=== PATIENT | male | born 1955 | race Caucasian/White ===

== ENCOUNTER → 2018-11-15 12:25 | Outpatient (CLI) | payer MEDICARE, OTHER, SELFPAY ==
[2017-06-20 14:05] VITALS: BMI 42.5
--- NOTE | 2018-11-15 12:35 | RAD_ITS ---
STUDY: X-RAY CHEST REASON FOR EXAM: Male, 63 years old. Acute bronchitis TECHNIQUE: PA and lateral views of the chest. COMPARISON: Previous study of 06/20/2017 FINDINGS: There is a right-sided Mediport with catheter tip superimposed on the distal SVC. The lungs are clear and expanded. There is no demonstrated pleural abnormality. Normal size heart. Normal mediastinum and shira. Normal visualized pulmonary arteries. Normal visualized aortic arch and descending thoracic aorta. There are diffuse degenerative changes of the visualized thoracic spine. Normal visualized ribs, clavicles, and shoulders. There is no demonstrated abnormality of the visualized soft tissue structures of the upper abdomen. RAD/Chest PA and Lateral IMPRESSION: Right-sided MediPort with catheter tip appearing in adequate position. Degenerative changes of the thoracic spine. No acute cardiopulmonary disease process is seen. Electronically Signed: Aakash Arrieta MD at 23:54 EST , Service support ,
== END ==
PROVIDERS: Family Provider Family Medicine; PCP Family Medicine; Referring Provider Family Medicine; Visit Provider Family Medicine
DX: J20.9 Acute bronchitis, unspecified (principal)
CPT/HCPCS: 71046

== ENCOUNTER → 2019-01-01 09:59 | Outpatient (CLI) | payer OTHER, SELFPAY ==
[2017-06-20 14:05] VITALS: BMI 42.5
[2019-01-01 13:13] LABS: ALB/GLOB Ratio 1.3 RATIO (0.9-2.4); AST(SGOT) 11 U/L (15-37); Alanine Aminotransfer ALT/SGPT 18 U/L (16-61); Albumin, Serum 3.5 g/dL (3.2-5.0); Alkaline Phosphatase 86 U/L (45-117); Anion Gap 4 (5-15); BUN 16 mg/dL (7-18); BUN/Creat Ratio 18.4 RATIO (10-20); Calcium,Total 8.6 mg/dL (8.5-10.1); Chloride 110 mmol/L (98-107); Cholesterol 175 mg/dL (200); Creatinine, Serum 0.87 mg/dL (0.70-1.30); EST Glomerular Filtration Rate 93 mL/min (>60); Est Glom Filt Rate - Afr Amer 113 mL/min (>60); Globulin 2.6 g/dL (2.2-4.2); Glucose 68 mg/dL (74-106); High Density Lipoprotein 63 mg/dL; Magnesium 2.2 mg/dL (1.6-2.6); Potassium 4.4 mmol/L (3.5-5.1); Protein, Total 6.1 g/dL (6.4-8.2); Sodium Level 142 mmol/L (136-145); Thyroid Stim Hormone (TSH) 1.89 uIU/mL (0.358-3.74); Triglycerides 72 mg/dL; Very Low Density Lipoprotein 14 mg/dL (5-40)
[2019-01-03 12:20] LABS: Arsenic 7245 8 ug/L (2-23); Lead, Blood 2 ug/dL (0-4); Mercury, Blood 85324 1.2 ug/L (0.0-14.9)
== END ==
PROVIDERS: Family Provider Family Medicine; PCP Family Medicine; Referring Provider Family Medicine; Visit Provider Family Medicine
DX: I10 Essential (primary) hypertension (principal); I49.9 Cardiac arrhythmia, unspecified; Z72.0 Tobacco use
CPT/HCPCS: 36415; 80053; 80061; 82175; 83655; 83735; 83825; 84443

== ENCOUNTER → 2019-01-20 13:58 | Outpatient (CLI) | payer MEDICARE, OTHER, SELFPAY ==
[2019-01-20 09:36] VITALS: BMI 31.1
--- NOTE | 2019-01-20 14:04 | ECHOD_ITS ---
Reason For Study: MURMUR Procedure This was a 2D Doppler, Color Flow transthoracic echocardiogram. The study was technically difficult. Exam performed in department. Left Ventricle Mildly dilated left ventricle. Apical false tendon noted. Left ventricular systolic function is normal. The estimated ejection fraction is 55 %. There is evidence of diastolic dysfunction. No regional wall motion abnormalities noted. Right Ventricle Normal RV size. Normal systolic function. Atria The left atrium is moderately enlarged. Normal right atrium. No doppler evidence for ASD. Mitral Valve There is no mitral annular calcification. Normal mitral valve. Mild (1+) mitral valve insufficiency. Tricuspid Valve Normal tricuspid valve. Trivial tricuspid valve insufficiency. Right ventricular systolic pressure estimated to be 33 mmHg. Aortic Valve Trisinus/trileaflet aortic valve. Normal aortic valve. Trivial aortic valve insufficiency. Pulmonic Valve The pulmonic valve is not well visualized. Great Vessels Normal sized aortic root. Pericardium/Pleural No pericardial effusion. MMode/2D Measurements & Calculations LVIDd: 6.4 cm IVSd: 1.0 cm LVOT diam: 2.2 cm LVIDs: 5.1 cm LVPWd: 1.1 cm LVOT area: 3.8 cm2 RVDd: 3.7 cm FS: 20.8 % Ao root diam: 3.7 cm LAV(MOD-bp): 113.2 ml LA A4 area: 28.6 cm2 LAV(MOD-bp) Indexed: 56.1 ml/m2 LAV(MOD-sp2): 108.4 ml LAV(MOD-sp4): 111.5 ml LA dimension(2D): 4.4 cm RA A4 area: 24.7 cm2 Time Measurements MV dec time: 0.28 sec Doppler Measurements & Calculations MV E max dank: 62.6 cm/sec Lat Peak E' Dank: 5.7 cm/sec Med Peak E' Dank: 5.0 cm/sec MV A max dank: 75.6 cm/sec E/E' lat: 11.0 E/E' med: 12.5 MV E/A: 0.83 Ao V2 max: 197.8 cm/sec AI max dank: 362.4 cm/sec LV V1 max: 142.6 cm/sec Ao max P.7 mmHg AI max P.6 mmHg LV V1 max P.1 mmHg Ao V2 mean: 141.2 cm/sec AI dec slope: 164.1 cm/sec2 LV V1 mean P.7 mmHg Ao mean P.7 mmHg AI P1/2t: 646.6 msec LV V1 mean: 103.7 cm/sec Ao V2 VTI: 41.1 cm LV V1 VTI: 30.0 cm SANJAY(I,D): 2.7 cm2 SANJAY(V,D): 2.7 cm2 SV(LVOT): 112.9 ml PA V2 max: 133.8 cm/sec TR max dank: 272.8 cm/sec TR max P.8 mmHg Interpretation Summary The study was technically difficult. Mildly dilated left ventricle. Left ventricular systolic function is normal. The estimated ejection fraction is 55 %. Apical false tendon noted. The left atrium is moderately enlarged. Mild (1+) mitral valve insufficiency. Trivial tricuspid valve insufficiency. Trivial aortic valve insufficiency. Right ventricular systolic pressure estimated to be 33 mmHg. There is evidence of diastolic dysfunction. Ordering Physician: Ivan Kamara Referring Physician: Kai Hackett Performed By: Denisse Mast, GIGI, RVT
== END ==
PROVIDERS: Family Provider Family Medicine; PCP Family Medicine; Referring Provider Family Medicine; Visit Provider Family Medicine
DX: R01.1 Cardiac murmur, unspecified (principal)
CPT/HCPCS: 93306

== ENCOUNTER → 2019-02-04 06:42 | Outpatient (CLI) | payer MEDICARE, OTHER, SELFPAY ==
[2019-01-20 09:36] VITALS: BMI 31.1
--- NOTE | 2019-02-04 11:55 | STRESSREP ---
Stress Test Report Date: 02-04-19 Procedure: Exercise tolerance test/imaging study Indications: Sinus bradycardia; PACs; hypertension Consent: Per the patient Procedure: The patient exercised on a Kevon protocol for 9 minutes and 30 seconds completing Stage III and 30 seconds of Stage IV achieving a peak heart rate of 146 bpm (94 % predicted maximal heart rate) with a peak blood pressure 190/102 mmHg and a peak MET capacity of 10 METs. The baseline ECG demonstrated sinus bradycardia; nonspecific T wave abnormality. The peak exercise ECG demonstrated pseudonormalization of baseline T wave abnormality. There was an occasional PVC pretest, during exercise, and recovery. The functional capacity was considered good. There was no complaint of chest discomfort during exercise or recovery. The examination was discontinued secondary to dyspnea and leg discomfort. Impression: 1. Technically adequate (percent predicted maximal heart rate greater than 85%) exercise tolerance test 2. Peak exercise ECG demonstrated pseudonormalization of baseline T wave abnormality 3. There was an occasional PVC pretest, during exercise, and recovery 4. Nuclear images pending Myocardial perfusion imaging study: Technique: The patient was injected with 11.1 mCi of technetium 99m Cardiolite and subsequently rest SPECT Cardiolite nuclear imaging was obtained in the horizontal long, vertical long, and short axis views. The patient exercised on a Kevon protocol for 9 minutes and 30 seconds completing Stage III and 30 seconds of Stage IV achieving a peak heart rate of 146 bpm (94 % predicted maximal heart rate) with a peak blood pressure 190/102 mmHg and a peak MET capacity of 10 METs. The patient was injected with 32.8 mCi of technetium 99m Cardiolite and subsequently stress SPECT Cardiolite nuclear imaging was obtained in the horizontal long, vertical long, and short axis views. A gated Cardiolite study at peak stress was obtained. Interpretation: Rest and stress SPECT Cardiolite nuclear imaging status post realignment, normalization, and attenuation correction, demonstrates the appearance of a small area of subtle diminished tracer uptake near the apical segments without significant change between rest and stress. There are similar type findings on the resting and stress polar map images. There is end systolic thickening and brightening. The gated Cardiolite study demonstrates myocardial thickening and inward wall motion. The reported LVEF is 42 %. Impression: 1. Rest and stress SPECT Cardiolite nuclear imaging demonstrate myocardial perfusion changes appearing compatible defects of physiologic apical thinning with no myocardial perfusion changes considered diagnostic for associated stress-induced myocardial ischemia. 2. The gated Cardiolite study reports an LVEF of 42 %. This note was generated with [employer] software. It may contain incorrect words, spelling, and punctuation that were not noted in checking the note before signing.
== END ==
PROVIDERS: Family Provider Family Medicine; PCP Family Medicine; Referring Provider Internal Medicine Cardiovascular Disease; Visit Provider Internal Medicine Cardiovascular Disease
DX: I49.1 Atrial premature depolarization (principal); I49.3 Ventricular premature depolarization; R00.1 Bradycardia, unspecified; R01.1 Cardiac murmur, unspecified; I10 Essential (primary) hypertension; R06.00 Dyspnea, unspecified
CPT/HCPCS: 78452; 93017; A9500; A4216

== ENCOUNTER → 2020-02-13 11:03 | Outpatient (CLI) | payer MEDICARE, OTHER, SELFPAY ==
[2020-02-13 10:06] VITALS: BMI 35.9
[2020-02-13 12:05] LABS: Anion Gap 4 (5-15); BUN 16 mg/dL (7-18); BUN/Creat Ratio 16.1 RATIO (10-20); Calcium,Total 9.1 mg/dL (8.5-10.1); Chloride 111 mmol/L (98-107); Creatinine, Serum 0.99 mg/dL (0.70-1.30); EST Glomerular Filtration Rate 80 mL/min (>60); Est Glom Filt Rate - Afr Amer 97 mL/min (>60); Glucose 123 mg/dL (74-106); Magnesium 2.1 mg/dL (1.6-2.6); Sodium Level 140 mmol/L (136-145); Thyroid Stim Hormone (TSH) 1.84 uIU/mL (0.358-3.74)
--- OUTSIDE RECORDS SUMMARY | 2020-07-13 11:14 | XMS RPT_ITS | CCD ---
:1955 External Reference #:[id number] Author Organization [facility] Care Team Providers Name Role Phone Prieto Kamara Primary Care Provider Deacon CH, D Unavailable Deacon CH, D Unavailable Allergies Reported Allergen Reaction(s) Severity Date of Onset Location penicillin v Critical, Critical 12-08-2015 - [facility] ([id number]) Medications Medication Name Sig Date Prescriber Location acetaminophen TYLENOL CAPS as needed 06-13-2017 [facility] (78323) CAPS [id number] Mane Worthy MD TYLENOL CAPS as needed 06-13-2017 [facility] ACETAMINOPHEN CAPS (4 4691) [id number] Mane Worthy MD TYLENOL CAPS as needed 06-13-2017 [facility] ACETAMINOPHEN CAPS (4 4691) [id number] Mane Worthy MD TYLENOL CAPS as needed 06-13-2017 [facility] ACETAMINOPHEN CAPS (4 4691) [id number] Mane Worthy MD acetaminophen (TYLENOL EXTRA [facility]cf Provider [facility] STRENGTH) 500 mg tablet Take (44 691) 1,000 mg by mouth every 6 hours as needed. 0 Active Comment: Take 1,000 mg by mouth every 6 hours as needed. aspirin ASPIR-LOW 81 MG TBE 12-08-2015 - 06-13-2017 [facility] ASPIRIN (01718) [id number] Ollie Coates ASPIR-LOW 81 MG TBE 12-08-2015 - 06-13-2017 [facility] ASPIRIN [id number] ( 46247) Ollie S Jaxon B [id number] B COMPLETE TABS B 12-08-2015 [facility] Surgical [phone] Associates (86598) Ollie Mayes COMPLETE TABS B 12-08-2015 [facility] (14717) [id number] Ollie Mayes [id number]-[id number] B COMPLETE TABS B 12-08-2015 [facility] Surgical [id number] Associates (65387) Ollie Mayes COMPLETE TABS B 12-08-2015 [facility] (47883) [id number] Ollie Coates cholecalciferol VITAMIN D (CHOLECALCIFEROL) 1000 06-13-2017 [facility] UNIT TABS One tablet by mouth (37969) daily CHOLECALCIFEROL [id number] Mane Worthy MD VITAMIN D-400 TABS 12-08-2015 - 06-13-2017 [facility] CHOLECALCIFEROL TABS (30684) [id number] Mane Worthy MD VITAMIN D-400 TABS 12-08-2015 [facility] CHOLECALCIFEROL TABS [id number] (66690) Ollei Coates VITAMIN D-400 TABS 12-08-2015 - 06-13-2017 [facility] CHOLECALCIFEROL TABS (46103) [id number] Mane Worthy MD VITAMIN D-400 TABS 12-08-2015 [facility] CHOLECALCIFEROL TABS [id number] (08711) Ollie Coates VITAMIN D-400 TABS 12-08-2015 - 06-13-2017 [facility] CHOLECALCIFEROL TABS (92032) [id number] Mane Worthy MD VITAMIN D-400 TABS 12-08-2015 [facility] CHOLECALCIFEROL TABS [id number] (69553) Ollie Coates VITAMIN D-400 TABS 2015 - 06-13-2017 [facility] CHOLECALCIFEROL TABS (13511) [id number] Mane Worthy MD VITAMIN D-400 TABS 12-08-2015 [facility] CHOLECALCIFEROL TABS [id number] (71240) Ollie Coates Famotidine famotidine (PEPCID AC) 10 mg [facility] Provider [facility] (53799) tablet Take 10 mg by mouth as needed. 0 Active Comment: Take 10 mg by mouth as neede d. furosemide furosemide (LASIX) 20 mg 04-11-2017 [facility] Provider [facility] tablet 1 tablet once (07497) daily. 0 04/11/2017 Active Comment: 1 tablet once daily. heparin heparin 100 unit/mL 01-22-2018 Kai Hackett [facility] (44242) injection Access implanted vascular access device (IVAD) as needed for flush, blood draw or treatment. Before de-accessing port, flush with 10-20ml normal saline and follow with 5 mL heparin (100 units/mL) (if no heparin allergy). De-access port on treatment completion. 20 mL 11 02/25/2019 Active Comment: Access implanted vascular ac cess device (IVAD) as needed for flush, blood draw or treatment. Before de -accessing port, flush with 10-20ml normal saline and follow with 5 mL heparin (100 units/mL) (if no heparin allergy). De-access port on treatment completion. Ibuprofen ibuprofen (ADVIL) 200 mg tablet Ccf Provi ellen [facility] (29362) Take 200 mg by mouth every 6 hours as needed. 0 Active Comment: Take 200 mg by mouth every 6 hours as needed. lisinopril LISINOPRIL 10 MG TABS 12-08-2015 - 06-13-2017 [facility] (74631 ) LISINOPRIL [id number] Mane Worthy MD Comment: Take 10 mg by mouth once soha ly. melatonin GNP MELATONIN TABS One tablet by 06-13-2017 [facility] Surgical [facility] mouth daily MELATONIN (06689) TABS [id number] Mane Worthy MD GNP MELATONIN TABS One tablet 06-13-2017 [facility] by mouth daily (28194 ) MELATONIN TABS [id number] Mane Worthy MD GNP MELATONIN TABS One tablet 06-13-2017 [facility] by mouth daily (47783 ) MELATONIN TABS [id number] Mane Worthy MD Melatonin 5 mg tab Take 5 mg by [facility] Provider [facility] mouth at bedtime as needed. 0 (4 7310) Active Comment: Take 5 mg by mouth at bedtim e as needed. Metoprolol metoprolol succinate ER (TOPROL [facility] Provi ellen [facility] (63104) XL) 25 mg 24 hr tablet Take 25 mg by mouth once daily. 0 Active Comment: Take 25 mg by mouth once soha ly. MULTIPLE VITAMINS-MINERALS DAILY MULTIVITAMIN CAPS 06-13-2017 [facility] Surgical One tablet by mouth daily As sociates (80650) MULTIPLE VITAMINS-MINERALS [id number] Mane Worthy MD DAILY MULTIVITAMIN CAPS One tablet by 06-13-2017 [facility] (97251) mouth daily MULTIPLE VITAMINS-MINERALS [id number] Mane Worthy MD MULTIPLE VITAMINS-MINERALS DAILY MULTIVITAMIN CAPS 06-13-2017 [facility] Surgical One tablet by mouth daily As sociates (46745) MULTIPLE VITAMINS-MINERALS [id number] Mane Worthy MD DAILY MULTIVITAMIN CAPS One tablet by 06-13-2017 [facility] (95128) mouth daily MULTIPLE VITAMINS-MINERALS [id number] Mane Worthy MD ondansetron ZOFRAN 8 MG TABS 1 tab every 8 06-13-2017 [facility] hours as needed ( 37763) ONDANSETRON HCL [id number] Mane Worthy MD ZOFRAN 8 MG TABS 1 tab every 8 hours as 06-13-2017 [facility] (36586) needed ONDANSETRON HCL [phone] Mane Worthy MD Potassium Chloride potassium chloride 20 01-20-2019 [facility] Provider [facility] mEq TbER Take 0.5 (94883) tablets by mouth once daily. 0 01/20/2019 Active Comment: Take 0.5 tablets by mouth on ce daily. potassium citrate POTASSIUM CITRATE ER 5 06-13-2017 [facility] Surgical MEQ (540 MG) CR-TABS Associa john (97914) One tablet by mouth daily POTASSIUM CITRATE [id number] Mane Worthy MD raNITIdine RANITIDINE HCL 150 MG 06-13-2017 [facility] Irene rgical TABS One tablet by Associate s (20848) mouth daily RANITIDINE HCL [id number] Mane Worthy MD Sodium Chloride 0.9 % sodium chloride 02-25-2019 [facility] (0.9% NACL) Access (09798) implanted vascular access device (IVAD) as needed for flush, blood draw or treatment. Flush IVAD with 10-20 mL NS every 4 weeks and PRN when IVAD not in use. 2 Syringe 50 02/25/2019 Active 0.9 % sodium chloride (0.9% NACL) 02-25-2019 [facility] (33997) Access implanted vascular access device (IVAD) as needed for flush, blood draw or treatment. Flush IVAD with 10-20 mL NS every 4 weeks and PRN when IVAD not in use. 2 Syringe 50 02/25/2019 Active 0.9 % sodium chloride (0.9% NACL) 02-25-2019 [facility] (77940) Access implanted vascular access device (IVAD) as needed for flush, blood draw or treatment. Flush IVAD with 10-20 mL NS every 4 weeks and PRN when IVAD not in use. 2 Syringe 50 02/25/2019 Active 0.9 % sodium chloride (0.9% NACL) 02-25-2019 [facility] (52924) Access implanted vascular access device (IVAD) as needed for flush, blood draw or treatment. Flush IVAD with 10-20 mL NS every 4 weeks and PRN when IVAD not in use. 2 Syringe 50 02/25/2019 Active 0.9 % sodium chloride (0.9% NACL) 02-25-2019 [facility] (41801) Access implanted vascular access device (IVAD) as needed for flush, blood draw or treatment. Flush IVAD with 10-20 mL NS every 4 weeks and PRN when IVAD not in use. 2 Syringe 50 02/25/2019 Active 0.9 % sodium chloride (0.9% NACL) 02-25-2019 Kai Mason [facility] (05466) Access implanted vascular access device (IVAD) as needed for flush, blood draw or treatment. Flush IVAD with 10-20 mL NS every 4 weeks and PRN when IVAD not in use. 2 Syringe 50 02/25/2019 Active 0.9 % sodium chloride (0.9% NACL) 02-25-2019 Kai Mason [facility] (91325) Access implanted vascular access device (IVAD) as needed for flush, blood draw or treatment. Flush IVAD with 10-20 mL NS every 4 weeks and PRN when IVAD not in use. 2 Syringe 50 02/25/2019 Active 0.9 % sodium chloride (0.9% NACL) 01-22-2018 Kai Mason [facility] (89238) Access implanted vascular access device (IVAD) as needed for flush, blood draw or treatment. Flush IVAD with 10-20 mL NS every 4 weeks and PRN when IVAD not in use. 2 Syringe 50 01/22/2018 Active 0.9 % sodium chloride (0.9% NACL) 01-22-2018 Kai Mason [facility] (77722) Access implanted vascular access device (IVAD) as needed for flush, blood draw or treatment. Flush IVAD with 10-20 mL NS every 4 weeks and PRN when IVAD not in use. 2 Syringe 50 01/22/2018 Active 0.9 % sodium chloride (0.9% NACL) 01-22-2018 Kai Mason [facility] (23745) Access implanted vascular access device (IVAD) as needed for flush, blood draw or treatment. Flush IVAD with 10-20 mL NS every 4 weeks and PRN when IVAD not in use. 2 Syringe 50 01/22/2018 Active 0.9 % sodium chloride (0.9% NACL) 01-22-2018 Kai Mason [facility] (77255) Access implanted vascular access device (IVAD) as needed for flush, blood draw or treatment. Flush IVAD with 10-20 mL NS every 4 weeks and PRN when IVAD not in use. 2 Syringe 50 01/22/2018 Active 0.9 % sodium chloride (0.9% NACL) 01-22-2018 Kai Mason [facility] (94665) Access implanted vascular access device (IVAD) as needed for flush, blood draw or treatment. Flush IVAD with 10-20 mL NS every 4 weeks and PRN when IVAD not in use. 2 Syringe 50 01/22/2018 Active 0.9 % sodium chloride (0.9% NACL) 01-22-2018 Kai Mason [facility] (03883) Access implanted vascular access device (IVAD) as needed for flush, blood draw or treatment. Flush IVAD with 10-20 mL NS every 4 weeks and PRN when IVAD not in use. 2 Syringe 50 01/22/2018 Active 0.9 % sodium chloride (0.9% NACL) 01-22-2018 Kai Mason [facility] (06239) Access implanted vascular access device (IVAD) as needed for flush, blood draw or treatment. Flush IVAD with 10-20 mL NS every 4 weeks and PRN when IVAD not in use. 2 Syringe 50 01/22/2018 Active Comment: Access implanted vascular ac cess device (IVAD) as needed for flush, blood draw or treatment. Flush IVAD with 10-20 mL NS every 4 weeks and PRN when IVAD not in use. venetoclax VENCLEXTA 100 MG TABS Two 06-13-2017 [facility] Surgical [facility] tablets by mouth daily (4469 1) VENETOCLAX [id number] Mane Worthy MD Problems Active Problems Category Problem Name Status Date Location Coagulation and Chronic idiopathic Active 10-13-[address] 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[facility] Surgica l leukemia, disease Associates (76188) Osteoarthritis Osteoarthritis of hip Active 12-08-2015 - [facility] (449 91) Other nutritional; Morbid obesity Active 01-17-2017 - [facility] endocrine; and (85650) metabolic disorders Unclassified Neutropenia due to and Active 11-24-2016 - [facility] following chemotherapy (4419 5) Unclassified H/O: blood transfusion Active 11-16-2016 - [facility] (35397) Past or Other Problems Category Problem Name Status Date Location 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 (17989) Other non-traumatic Hip pain Completed 12-08-2015 - [facility] ical joint disorders [facility] ( 00753) Results Result Name Value Range Unit Interpretation Flag Date Location cbc and differential on 2020-06-28 Abs Baso 0.05 <0.11 k/uL Normal 06-28-2020 [facility] (21246) Abs [place] 0.57 <0.87 k/uL Normal 06-28-2020 [facility] (28334) Abs Neut 3.01 1.45-7.50 k/uL Normal 06-28-2020 [facility] (09239) Absolute nRBC <0.01 <0.01 Normal 06-28-2020 [facility] (64705) Basophils/100 WBC 0.9 % Normal 06-28-2020 [facility] (Bld) [place] (19326) DTYPE Auto Diff Normal 06-28-2020 [facility] (75385) Eosinophils (Bld) 0.07 <0.46 k/uL Normal 06-28-2020 [facility] [#/Vol] [place] (66094) Eosinophils/100 WBC 1.3 % Normal 06-28-2020 [facility] (Bld) [place] (00579) Erythrocyte 13.9 11.5-15.0 % Normal 06-28-2020 [facility] distribution width [facility] (44416) (RBC) [Ratio] Hematocrit (Bld) 43.9 39.0-51.0 % Normal 06-28-2020 [facility] [Volume fraction] [facility] (26230) Hemoglobin (Bld) 15.4 13.0-17.0 g/dL Normal 06-28-2020 [facility] [Mass/Vol] [place] (41586) Lymphocytes (Bld) 1.78 1.00-4.00 k/uL Normal 06-28-2020 [facility] [#/Vol] [place] (56634) Lymphocytes/100 WBC 32.4 % Normal 06-28-2020 [facility] (Bld) [place] (32999) MCH (RBC) [Entitic 32.9 26.0-34.0 pG Normal 06-28-2020 [facility] mass] [place] (06926) MCHC (RBC) 35.1 30.5-36.0 g/dL Normal 06-28-2020 [facility] [Mass/Vol] [place] (79889) MCV (RBC) [Entitic 93.8 80.0-100.0 fL Normal 06-28-2020 [facility] vol] [place] (41041) Monocytes/100 WBC 10.4 % Normal 06-28-2020 C [facility] ([facility]) [place] (41063) Neutrophils/100 WBC 55.0 % Normal 06-28-2020 [facility] ([facility]) [place] (79492) NRBCs 0.0 0 /100 WBC Normal 06-28-2020 [facility] (94477) Platelet mean volume 8.9 9.0-12.7 fL Low 0 [facility] ([facility]) [Entitic vol] [place] (15834) Platelets (d) 168 150-400 k/uL Normal 06-28-2020 [facility] [#/Vol] [place] (67299) RBC (d) [#/Vol] 4.68 4.20-6.00 m/uL Normal 06-28-2020 [facility] (01795) WBC (d) [#/Vol] 5.50 3.70-11.00 k/uL Normal 06-28-2020 [facility] (98827) cbc and differential on 2020-06-08 Abs Baso 0.05 <0.11 k/uL Normal 06-08-2020 [facility] (53278) Abs [place] 0.54 <0.87 k/uL Normal 06-08-2020 [facility] (01240) Abs Neut 2.99 1.45-7.50 k/uL Normal 06-08-2020 [facility] (40075) Absolute nRBC <0.01 <0.01 Normal 06-08-2020 [facility] (64174) Basophils/100 WBC 1.0 % Normal 06-08-2020 [facility] ([facility]) [place] (42074) DTYPE Auto Diff Normal 06-08-2020 [facility] (11842) Eosinophils (Bld) 0.09 <0.46 k/uL Normal 06-08-2020 [facility] [#/Vol] [place] (32875) Eosinophils/100 WBC 1.7 % Normal 06-08-2020 [facility] (Bld) [place] (84699) Erythrocyte 13.6 11.5-15.0 % Normal 06-08-2020 [facility] distribution width [facility] (82416) (RBC) [Ratio] Hematocrit (Bld) 45.2 39.0-51.0 % Normal 06-08-2020 [facility] [Volume fraction] [facility] (65679) Hemoglobin (Bld) 15.8 13.0-17.0 g/dL Normal 06-08-2020 [facility] [Mass/Vol] [place] (85765) Lymphocytes (Bld) 1.56 1.00-4.00 k/uL Normal 06-08-2020 [facility] [#/Vol] [place] (17729) Lymphocytes/100 WBC 29.8 % Normal 06-08-2020 [facility] (Bld) [place] (48587) MCH (RBC) [Entitic 33.0 26.0-34.0 pG Normal 06-08-2020 [facility] mass] [place] (60641) MCHC (RBC) 35.0 30.5-36.0 g/dL Normal 06-08-2020 [facility] [Mass/Vol] [place] (52938) MCV (RBC) [Entitic 94.4 80.0-100.0 fL Normal 06-08-2020 [facility] vol] [place] (30811) Monocytes/100 WBC 10.3 % Normal 06-08-2020 C [facility] (Bld) [place] (40103) Neutrophils/100 WBC 57.2 % Normal 06-08-2020 [facility] (Bld) [place] (46968) NRBCs 0.0 0 /100 WBC Normal 06-08-2020 [facility] (89543) Platelet mean volume 9.7 9.0-12.7 fL Normal 0 [facility] (d) [Entitic vol] [place] (49648) Platelets (Bld) 235 150-400 k/uL Normal 06-08-2020 [facility] [#/Vol] [place] (64652) RBC (Bld) [#/Vol] 4.79 4.20-6.00 m/uL Normal 06-08-2020 [facility] (79520) WBC (Bld) [#/Vol] 5.24 3.70-11.00 k/uL Normal 06-08-2020 [facility] (63351) comp metabolic panel on 2020-05-17 Albumin [Mass/Vol] 3.9 3.9-4.9 g/dL Normal 05-17-2020 [facility] (57093) ALP [Catalytic 68 38-113 U/L Normal 05-17-2020 [facility] activity/Vol] [place] (38264) ALT [Catalytic 12 10-54 U/L Normal 05-17-2020 [facility] activity/Vol] [place] and (95859) Anion gap 9 9-18 mmol/L Normal 05-17-2020 [facility] [Moles/Vol] [place] (13354) AST [Catalytic 14 14-40 U/L Normal 05-17-2020 [facility] activity/Vol] [place] and (05680) Bilirubin [Mass/Vol] 0.7 0.2-1.3 mg/dL Normal 0 [facility] (72695) Calcium [Mass/Vol] 9.2 8.5-10.2 mg/dL Normal 05-17-2020 [facility] (62343) Chloride [Moles/Vol] 107 97-105 mmol/L High 0 [facility] (83918) CO2 [Moles/Vol] 25 22-30 mmol/L Normal 05-17-2020 [facility] (81084) Creatinine 1.05 0.73-1.22 mg/dL Normal 05-[facility]-[address] [facility] [Mass/Vol] [place] (32727) eGFR- Amer. >60 Normal 05-17-2020 [facility] (40942) GFR/1.73 sq M >60 mL/min/{1.73_m Normal 05-17-2020 [facility] predicted among 2} [facility] (26175) non-blacks MDRD (S/P/Bld) [Vol rate/Area] Comment: Result Comment: eGFR (Estima maryjane GFR) Units of measure: mL/min/1.73 meters squared eGFR is derived from the ree xpressed MDRD Study equation using the following parameters: serum creatinine, age, gender and race. The creatinine assay has been calibrated to be traceable to IDMS. An eGFR <60 mL/min/1.73m2 fo r >3 months is consistent with chronic kidney disease. Refer to KDOQI guidelines for clinical interpretation. In patients with unstable re nal function, e.g. those with acute kidney injury, the eGFR may not accurately reflect actual GFR. Glucose [Mass/Vol] 94 74-99 mg/dL Normal 05-17-2020 [facility] (93343) Comment: Result Comment: The [place] Diabetes Association (ADA) provides guidance for cutoff values for fasting glucose and random glucose. The ADA defines fasting as no caloric intake for at least 8 hours. Fas ting plasma glucose results between 100 to 125 mg/dL indicate increased risk for diabetes (prediabetes). Fasting plasma glucose resul ts greater than or equal to 126 mg/dL meet the criteria for diagnosis of diabetes. In the absence of unequivocal hyperglycemia, results should be confirmed by repeat testing. In a patient with classic s ymptoms of hyperglycemia or hyperglycemic crisis, random plasma glucose results greater than or equal to 200 mg/dL meet the criteria for diagnosis of diabetes. Reference: Standards of [facility] Care in Diabetes 2016, [place] Diabetes Association. Diabetes Care. 2016.39(Suppl 1). Potassium [Moles/Vol] 3.9 3.7-5.1 mmol/L Normal 05-17-20 20 [facility] (01557) Protein [Mass/Vol] 5.7 6.3-8.0 g/dL Low 05-17-2020 [facility] (36121) Sodium [Moles/Vol] 141 136-144 mmol/L Normal 05-17-2020 [facility] (87693) Urea nitrogen [Mass/Vol] 17 9-24 mg/dL Normal 05-17 [facility] (72274) cbc and differential on 2020-05-17 Abs Baso 0.04 <0.11 k/uL Normal 05-17-2020 [facility] (03199) Abs [place] 0.59 <0.87 k/uL Normal 05-17-2020 [facility] (30602) Abs Neut 2.88 1.45-7.50 k/uL Normal 05-17-2020 [facility] (87746) Absolute nRBC <0.01 <0.01 Normal 05-17-2020 [facility] (55722) Basophils/100 WBC 0.8 % Normal 05-17-2020 [facility] (Bld) [place] (00748) DTYPE Auto Diff Normal 05-17-2020 [facility] (98756) Eosinophils (d) 0.07 <0.46 k/uL Normal 05-17-2020 [facility] [#/Vol] [place] (15251) Eosinophils/100 WBC 1.3 % Normal 05-17-2020 [facility] (Bld) [place] (93562) Erythrocyte 14.4 11.5-15.0 % Normal 05-17-2020 [facility] distribution width [facility] (60643) (RBC) [Ratio] Hematocrit (Bld) 45.3 39.0-51.0 % Normal 05-17-2020 [facility] [Volume fraction] [facility] (67046) Hemoglobin (Bld) 15.7 13.0-17.0 g/dL Normal 05-17-2020 [facility] [Mass/Vol] [place] (46644) Lymphocytes (Bld) 1.62 1.00-4.00 k/uL Normal 05-17-2020 [facility] [#/Vol] [place] (33963) Lymphocytes/100 WBC 31.0 % Normal 05-17-2020 [facility] (Bld) [place] (40406) MCH (RBC) [Entitic 32.9 26.0-34.0 pG Normal 05-17-2020 [facility] mass] [place] (80066) MCHC (RBC) 34.7 30.5-36.0 g/dL Normal 05-17-2020 [facility] [Mass/Vol] [place] (21922) MCV (RBC) [Entitic 95.0 80.0-100.0 fL Normal 05-17-2020 [facility] vol] [place] (93279) Monocytes/100 WBC 11.3 % Normal 05-17-2020 [facility] (Bld) [place] (85642) Neutrophils/100 WBC 55.6 % Normal 05-17-2020 [facility] (Bld) [place] (31005) NRBCs 0.0 0 /100 WBC Normal 05-17-2020 [facility] (14904) Platelet mean volume 9.8 9.0-12.7 fL Normal 0 [facility] ([facility]) [Entitic vol] [place] (73101) Platelets (Bld) 190 150-400 k/uL Normal 05-17-2020 [facility] [#/Vol] [place] (67124) RBC (Bld) [#/Vol] 4.77 4.20-6.00 m/uL Normal 05-17-2020 C [facility] (33321) WBC (d) [#/Vol] 5.22 3.70-11.00 k/uL Normal 05-17-2020 [facility] (64256) progress on 2020-03 PROGRESS HNO ID: [id number] Normal 04-26-2020 [facility] Author: Kai Hackett [place] ([id number]) Service: ? Author Type: Physician Type: Progress Notes Filed: 04/26/2020 10:06 AM Note Text: Diagnosis: 1) CLL/SLL HPI: The patient is a 65-year-old male who in the fall of 19 09 developed a kidney stone. He had a CT scan done as part of the workup fo r this. The study incidentally revealed several enlarged retroperitoneal lymph nodes measuring up to approximately 15 mm in short axis diameter. Additionally, he had a CBC done on 08/04/12. That study showed a total whit e count was 11,700 with 43% lymphocytes. Hemoglobin was 13.8 g/dL and th e platelet count 342,000. A followup CT scan was done at the end of August 2012 in o [facility] to assess stability of the lymph nodes. It showed that there was no si gnificant change. The patient had a flow cytometry performed on the peripheral blood that revealed a monoclonal population of B lymphocytes with a phe notype consistent with CLL. 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 He did not require adjuvant treatment. Underwent bone marrow biopsy 06/26/2016 to further work up ne w thrombocytopenia. Received one dose IVIG with essentially no change in platele t count. Started prednisone ~08/10/2016. Stopped several weeks later- -no impact on plt count. Previous therapy: 1) BR. First cycle 09/28 and 09/29/2016. He had ongoing thro mbocytopenia requiring transfusional support. Developed neutropenia that persisted after therapy. Hospitalized 11/23-11/24/2016 for NF. Had requi red Neupogen support for about 1-2 weeks. BR not administered for second cycle. 2) Venetoclax. Hospitalized on 12/20/2016 under a 23 observat ion to begin therapy. He had no acute side effects. No evidence of tumor lysis syndrome. Was on 400 mg a day dose for 2 weeks, then decreas ed to 200 mg daily as of 02/07 for worsening thrombocytopenia. Drug stoppe d in January 2017 after bone marrow biopsy demonstrated morphologic resolution of the CLL. Very low level CLL on flow cytometry. Current therapy: 1) Nplate. Presents for ongoing oncologic management. Interim history: No complaints today. No recent illness and no acute illnesses since last seen. Reed d been staying at home--weight up some. Had an episode of dizziness and was seen by PCP. Referred to cardiology based on auscultated murmur. Was told he had a dysrhythmia. Started on beta-paco that causes some afternoon fatigue and constant vague sense of lightheadedness. Mild swelling of ankles. No other cardia c symptoms including chest pain/pressure, palpitations, shortness of br eath at rest or with exertion, PND or orthopnea. No unusual bleeding or unexplained bruising other than one e pisode nosebleed last week. PMH, medications and allergies as below personally reviewed by me today. Any changes documented in appropriate section. ROS: Constitutional: See above. Neuro: Denies REED, vertigo, dizziness and imbalance. HEENT: No recent change in voice, vision or hearing. Resp: Denies cough, wheeze and hemoptysis.. CVS: See above. GI: Denies dysgeusia. Denies symptoms of stomatitis. Denies dysphagia and odynophagia. Denies reflux, n/v, change in bowel habits. : Denies dysuria or gross hematuria. No symptoms of bladde r outlet obstruction. Endo: Denies hot flashes. Denies polyuria and polydipsia. De nies heat and cold intolerance. Musculoskeletal: Denies bone, back, joint and muscular pain. Derm: Denies rash. Denies jaundice and diffuse pruritis. Heme: See above. Psych: Normal mood. PHYSICAL EXAM: Vitals: Blood pressure 141/71, pulse (!) 40, temperature 37. 2 ?C (98.9 ?F), temperature source Tympanic, weight 108 kg (238 lb). Well-appearing and in no acute distress. EYES: Sclerae are anicteric bilaterally. NECK: Supple. No enlargement of thyroid. LYMPHATIC: There is no palpable cervical, supraclavicular, a xillary or inguinal adenopathy. RESPIRATORY: Inspiratory breath sounds are of normal intensi ty in all gilman. No rales, wheezes or rhonchi. Expiratory phase is no rmal. CARDIOVASCULAR: Rhythm is regular. Normal intensity S1/S2. T here is no gallop or murmur. ABDOMEN: The abdomen is nondistended. No organomegaly. No te nderness. Extremities: No swelling or edema. SKIN: No jaundice or rash. No ecchymoses or petechiae. NEUROLOGIC: wharfmaster II-XII are grossly intact. No focal motor we akness. LABS: Component Latest Ref Rng AND Units 04/26/2020 WBC 3.70 - 11.00 k/uL 5.35 RBC 4.20 - 6.00 m/uL 4.75 Hemoglobin 13.0 - 17.0 g/dL 15.6 Hematocrit 39.0 - 51.0 % 45.0 MCV 80.0 - 100.0 fL 94.7 MCH 26.0 - 34.0 pG 32.8 MCHC 30.5 - 36.0 g/dL 34.7 RDW-CV 11.5 - 15.0 % 13.9 Platelet Count 150 - 400 k/uL 159 MPV 9.0 - 12.7 fL 9.5 Neut% % 55.7 Abs Neut (ANC) 1.45 - 7.50 k/uL 2.96 Lymph% % 29.7 Abs Lymph 1.00 - 4.00 k/uL 1.59 Niobrara% % 12.3 Abs Niobrara <0.87 k/uL 0.66 Eosin% % 1.7 Abs Eosin <0.46 k/uL 0.09 Baso% % 0.6 Abs Baso <0.11 k/uL 0.03 Nucleated Reds 0 /100 WBC 0.0 Absolute nRBC <0.01 k/uL <0.01 Diff Type Auto Diff ASSESSMENT/PLAN: (C91.10) CLL (chronic lymphocytic leukemia) (HCC) (primary e ncounter diagnosis) Assessment: -KPS is 100%. -Indication for therapy was profound thrombocytopenia not re sponsive to prednisone/IVIG. -No appreciable count recovery (aside from ANC due to filgra stim) 9 weeks post first cycle BR. -Was then treated with Vanetoclax for ~2 months. Repeat bone marrow biopsy then demonstrated morphologic clearance of CLL. Marrow remai celeste hypocellular. -CBC today continues to suggest complete hematologic respons e with exception ongoing ITP. Plan: -Continue to monitor. (D69.59) Thrombocytopenia, secondary Assessment: -Ongoing response to Nplate without side effects. -Drug will be administered provided platelet count is under 200,000. -Platelet count doing well with every three-week assessment/ treatment. Plan: -CBC/possible Nplate for plt count <200K every 3 weeks. Kai Hackett, DO comp metabolic panel on 2020-04-26 Albumin [Mass/Vol] 3.8 3.9-4.9 g/dL Low 04-26-2020 [facility] ([id number]) ALP [Catalytic 70 38-113 U/L Normal 04-26-2020 [facility] activity/Vol] [place] (47248) ALT [Catalytic 15 10-54 U/L Normal 04-26-2020 [facility] activity/Vol] [place] and (63549) Anion gap 9 9-18 mmol/L Normal 04-26-2020 [facility] [Moles/Vol] [place] (70176) AST [Catalytic 15 14-40 U/L Normal 04-26-2020 [facility] activity/Vol] [place] and (24675) Bilirubin [Mass/Vol] 0.5 0.2-1.3 mg/dL Normal 0 [facility] (55672) Calcium [Mass/Vol] 8.9 8.5-10.2 mg/dL Normal 04-26-2020 [facility] (53923) Chloride [Moles/Vol] 106 97-105 mmol/L High 0 [facility] (27654) CO2 [Moles/Vol] 26 22-30 mmol/L Normal 04-26-2020 [facility] (10720) Creatinine 1.02 0.73-1.22 mg/dL Normal 04-26-2020 [facility] [Mass/Vol] [place] (11693) eGFR- Amer. >60 Normal 04-26-2020 [facility] (21916) GFR/1.73 sq M >60 mL/min/{1.73_m Normal 04-26-2020 [facility] predicted among 2} [facility] (95526) non-blacks MDRD (S/P/Bld) [Vol rate/Area] Comment: Result Comment: eGFR (Estima maryjane GFR) Units of measure: mL/min/1.73 meters squared eGFR is derived from the ree xpressed MDRD Study equation using the following parameters: serum creatinine, age, gender and race. The creatinine assay has been calibrated to be traceable to IDMS. An eGFR <60 mL/min/1.73m2 fo r >3 months is consistent with chronic kidney disease. Refer to KDOQI guidelines for clinical interpretation. In patients with unstable re nal function, e.g. those with acute kidney injury, the eGFR may not accurately reflect actual GFR. Glucose [Mass/Vol] 94 74-99 mg/dL Normal 04-26-2020 [facility] (43178) Comment: Result Comment: The [place] Diabetes [employer] (ADA) provides guidance for cutoff values for fasting glucose and random glucose. The ADA defines fasting as no caloric intake for at least 8 hours. Fas ting plasma glucose results between 100 to 125 mg/dL indicate increased risk for diabetes (prediabetes). Fasting plasma glucose resul ts greater than or equal to 126 mg/dL meet the criteria for diagnosis of diabetes. In the absence of unequivocal hyperglycemia, results should be confirmed by repeat testing. In a patient with classic s ymptoms of hyperglycemia or hyperglycemic crisis, random plasma glucose results greater than or equal to 200 mg/dL meet the criteria for diagnosis of diabetes. Reference: Standards of [facility] Care in Diabetes 2016, [place] [employer] Association. Diabetes Care. 2016.39(Suppl 1). Potassium [Moles/Vol] 4.2 3.7-5.1 mmol/L Normal 04-26-20 20 [facility] (16546) Protein [Mass/Vol] 5.8 6.3-8.0 g/dL Low 04-26-2020 [facility] (91603) Sodium [Moles/Vol] 141 136-144 mmol/L Normal 04-26-2020 [facility] (45580) Urea nitrogen [Mass/Vol] 16 9-24 mg/dL Normal 04-26 [facility] (81032) cnovsp on 2020-04-01 7 CNOVSP Visit (SP) Office (HEMAWS) Normal [place] [facility] HUDSON LEE ([id number]) 1955 [facility] Date Time Provider Department ([id number]) 04/26/20 9:50 AM KAI HACKETT During your visit today, we recorded the following informati on about you: Temperature Pulse Blood pressure Weight 98.9 degrees 40/minute 141/71 108 kg Mary Jane Tiwari LPN 04/26/2020 9:59 AM Signed Est patient. Eight month OV. Discuss recent labs. Mary Jane Hackett DO 04/26/2020 10:06 AM Signed Diagnosis: 1) CLL/SLL HPI: The patient is a 65-year-old male who in the fall of 19 09 developed a kidney stone. He had a CT scan done as part of t he workup for this. The study incidentally revealed severa l enlarged retroperitoneal lymph nodes measuring up to approximately 15 mm in short axis arely meter. Additionally, he had a CBC done on 08/04/12. That study showed a total white count was 11,700 with 43% lymphocytes. Hemoglobin was 13.8 g/dL and the platelet count 342,000. A followup CT scan was done at the end of August 2012 in o er to assess stability of the lymph nodes. It showed that the re was no significant change. The patient had a flow cytometry performed on the peripheral blood that revealed a monoclonal population of B lymphocyte s with a phenotype consistent with CLL. 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 He did not require adjuvant treatment. Underwent bone marrow biopsy 06/26/2016 to further work up new thrombocytopenia. Received one dose IVIG with essentially no change in platele t count. Started prednisone ~08/10/2016. Stopped several weeks later--no impact on plt count. Previous therapy: 1) BR. First cycle 09/28 and 09/29/2016. He had ongoing thro mbocytopenia requiring transfusional support. Developed neutropenia suraj t persisted after therapy. Hospitalized 11/23-11/24/2016 for NF. Had required Neupogen support for about 1-2 weeks. BR not administered for second cycle. 2) Venetoclax. Hospitalized on 12/20/2016 under a 23 observat ion to begin therapy. He had no acute mike e effects. No evidence of tumor lysis syndrome. Was on 400 mg a day dose for 2 w eeks, then decreased to 200 mg daily as of 02/07 for worsening thrombocytopenia. Drug stopped in January 2017 after bone marrow biopsy demonstrated morphologic resolution of the CLL. Very low lev el CLL on flow cytometry. Current therapy: 1) Nplate. Presents for ongoing oncologic management. Interim history: No complaints today. No recent illness and no acute illnesses since l ast seen. Had been staying at home--weight up some. Had an episode of dizziness and was seen by PCP. Referred to cardiology based on auscultated murmur. Was told he had a dysrhyt hmia. Started on beta-paco that causes some afternoon f atigue and constant vague sense of lightheadedness. Mild swelling of ankles. No other cardiac symptoms including chest pain/pressure, palpitations, shortness o f breath at rest or with exertion, PND or orthopnea. No unusual bleeding or unexplained bruising other than one episode nosebleed last week. PMH, medications and allergies as below personally rev iewed by me today. Any changes documented in appropriate section. ROS: Constitutional: See above. Neuro: Denies REED, vertigo, dizziness and imbalance. HEENT: No recent change in voice, vision or hearing. Resp: Denies cough, wheeze and hemoptysis.. CVS: See above. GI: Denies dysgeusia. Denies symptoms of stomatitis. Denies dysphagia and odynophagia. Denies reflux, n/v, change in bowel habits. : Denies dysuria or gross hematuria. No symptoms of bladde r outlet obstruction. Endo: Denies hot flashes. Denies polyuri a and polydipsia. Denies heat and cold intolerance. Musculoskeletal: Denies bone, back, joint and muscular pain. Derm: Denies rash. Denies jaundice and diffuse pruritis. Heme: See above. Psych: Normal mood. PHYSICAL EXAM: Vitals: Blood pressure 141/71, pulse (!) 40, temperature 3 7.2 ?C (98.9 ?F), temperature source Tympanic, weight 108 kg (238 lb). Well-appearing and in no acute distress. EYES: Sclerae are anicteric bilaterally. NECK: Supple. No enlargement of thyroid. LYMPHATIC: There is no palpa ble cervical, supraclavicular, axillary or inguinal adenopathy. RESPIRATORY: Inspiratory breath sounds are of no rmal intensity in all gilman. No rales, wheezes or rhonchi. Expiratory phase is normal. CARDIOVASCULAR: Rhythm is regular. Normal intens ity S1/S2. There is no gallop or murmur. ABDOMEN: The abdomen is nondistended. No organomegaly. No te nderness. Extremities: No swelling or edema. SKIN: No jaundice or rash. No ecchymoses or petechiae. NEUROLOGIC: wharfmaster II-XII are grossly intact. No focal motor we akness. LABS: Component Latest Ref Rng AND Units 04/26/2020 WBC 3.70 - 11.00 k/uL 5.35 RBC 4.20 - 6.00 m/uL 4.75 Hemoglobin 13.0 - 17.0 g/dL 15.6 Hematocrit 39.0 - 51.0 % 45.0 MCV 80.0 - 100.0 fL 94.7 MCH 26.0 - 34.0 pG 32.8 MCHC 30.5 - 36.0 g/dL 34.7 RDW-CV 11.5 - 15.0 % 13.9 Platelet Count 150 - 400 k/uL 159 MPV 9.0 - 12.7 fL 9.5 Neut% % 55.7 Abs Neut (ANC) 1.45 - 7.50 k/uL 2.96 Lymph% % 29.7 Abs Lymph 1.00 - 4.00 k/uL 1.59 Niobrara% % 12.3 Abs Niobrara <0.87 k/uL 0.66 Eosin% % 1.7 Abs Eosin <0.46 k/uL 0.09 Baso% % 0.6 Abs Baso <0.11 k/uL 0.03 Nucleated Reds 0 /100 WBC 0.0 Absolute nRBC <0.01 k/uL <0.01 Diff Type Auto Diff ASSESSMENT/PLAN: (C91.10) CLL (chronic lympho cytic leukemia) ([facility]) (primary encounter diagnosis) Assessment: -KPS is 100%. -Indication for therapy was profound thrombocytopenia not re sponsive to prednisone/IVIG. -No appreciable count recovery (aside fr om ANC due to filgrastim) 9 weeks post first cycle BR. -Was then treated with Vanet oclax for ~2 months. Repeat bone marrow biopsy then demonstrated morphologic clearance of CLL. Marrow remained h ypocellular. -CBC today continues to suggest complete hematologic r esponse with exception ongoing ITP. Plan: -Continue to monitor. (D69.59) Thrombocytopenia, secondary Assessment: -Ongoing response to Nplate without side effects. -Drug will be administered provided platelet count is under 200,000. -Platelet count doing well with every three-week assessment/ treatment. Plan: -CBC/possible Nplate for plt count <200K every 3 weeks. Kai Hackett DO Referring Provider: KAI HACKETT [[id number]] Allergies As of Date: 04/26/2020 Noted Allergy Reaction PENICILLINS 10/25/2012 16 - Unknown Date Reviewed: 04/26/2020 Reviewed by: Mary Jane Tiwari LPN - Fully Assessed Reason for Visit: Established Patient [175] Primary Visit Diagnosis:CLL (chronic lymphocytic leukemia) ( [facility]) [C91.10] Other Visit Diagnosis:Chronic ITP (idiopathic th rombocytopenia) ([facility]) [D69.3] Follow-up and Disposition History Recorded Prescriptions as of 04/26/2020 Sig: METOPROLOL SUCCINATE ER 25 MG* Take 25 mg by mouth once petar * FAMOTIDINE 10 MG TABLET Take 10 mg by mouth as needed. POTASSIUM CHLORIDE ER 20 MEQ * Take 0.5 tablets by mouth onc * LISINOPRIL 10 MG TABLET Take 10 mg by mouth once petar* SODIUM CHLORIDE 0.9% FLUSH Access implanted vascular acc* HEPARIN, PORCINE (PF) 100 UNI* Access implanted vascular acc * IBUPROFEN 200 MG TABLET Take 200 mg by mouth every 6 * FUROSEMIDE 20 MG TABLET 1 tablet once daily. ACETAMINOPHEN 500 MG TABLET Take 1,000 mg by mouth every * MELATONIN 5 MG TABLET Take 5 mg by mouth at bedtime* SODIUM CHLORIDE 0.9% FLUSH Access implanted vascular acc* HEPARIN, PORCINE (PF) 100 UNI* Access implanted vascular acc * Problem List As Of Date 04/26/2020 Noted Resolved CLL (chronic lymphocytic leukemia) [C91.10] 10/25/2012 Acute ITP (HCC) [D69.3] 07/12/2016 10/13/2016 Thrombocytopenia, secondary [D69.59] 10/13/2016 History of transfusion [Z92.89] 11/16/2016 More... Chemotherapy-induced neutropenia (HCC) [D70.1, *11/24/2016 Obesity, Class III, BMI >= 40 (morbid obesity) *01/17/2017 More... 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 Eight month OV. Discuss recent labs. Mary Jane Tiwari LPN Encounter Status:Closed by KAI HACKETT DO on 04/26/20 cbc and differential on 2020-04-26 Abs Baso 0.03 <0.11 k/uL Normal 04-26-2020 [facility] ([id number]) Abs Niobrara 0.66 <0.87 k/uL Normal 04-26-2020 [facility] (95604) Abs Neut 2.96 1.45-7.50 k/uL Normal 04-26-2020 [facility] (26672) Absolute nRBC <0.01 <0.01 Normal 04-26-2020 [facility] (62258) Basophils/100 WBC 0.6 % Normal 04-26-2020 [facility] ([facility]) [place] (23025) DTYPE Auto Diff Normal 04-26-2020 [facility] (54986) Eosinophils (Bld) 0.09 <0.46 k/uL Normal 04-26-2020 [facility] [#/Vol] [place] (17008) Eosinophils/100 WBC 1.7 % Normal 04-26-2020 [facility] (Bld) [place] ([id number]) Erythrocyte 13.9 11.5-15.0 % Normal 04-26-2020 [facility] distribution width [facility] ([id number]) (RBC) [Ratio] Hematocrit (Bld) 45.0 39.0-51.0 % Normal 04-26-2020 [facility] [Volume fraction] [facility] (34074) Hemoglobin (Bld) 15.6 13.0-17.0 g/dL Normal 04-26-2020 [facility] [Mass/Vol] [place] (88134) Lymphocytes (Bld) 1.59 1.00-4.00 k/uL Normal 04-26-2020 [facility] [#/Vol] [place] (36487) Lymphocytes/100 WBC 29.7 % Normal 04-26-2020 [facility] (Bld) [place] (55801) MCH (RBC) [Entitic 32.8 26.0-34.0 pG Normal 04-26-2020 [facility] mass] [place] (99242) MCHC (RBC) 34.7 30.5-36.0 g/dL Normal 04-26-2020 [facility] [Mass/Vol] [place] (54044) MCV (RBC) [Entitic 94.7 80.0-100.0 fL Normal 04-26-2020 [facility] vol] [place] (67085) Monocytes/100 WBC 12.3 % Normal 04-26-2020 [facility] (Bld) [place] (16930) Neutrophils/100 WBC 55.7 % Normal 04-26-2020 [facility] (Bld) [place] (73802) NRBCs 0.0 0 /100 WBC Normal 04-26-2020 [facility] (00975) Platelet mean volume 9.5 9.0-12.7 fL Normal 0 [facility] (d) [Entitic vol] [place] (08759) Platelets (Bld) 159 150-400 k/uL Normal 04-26-2020 [facility] [#/Vol] [place] (59565) RBC (Bld) [#/Vol] 4.75 4.20-6.00 m/uL Normal 04-26-2020 [facility] (97702) WBC (Bld) [#/Vol] 5.35 3.70-11.00 k/uL Normal 04-26-2020 [facility] (27866) cbc and differential on 2020-04-05 Abs Baso 0.05 <0.11 k/uL Normal 04-05-2020 [facility] ([id number]) Abs Ni[place]rara 0.60 <0.87 k/uL Normal 04-05-2020 [facility] (98410) Abs Neut 3.83 1.45-7.50 k/uL Normal 04-05-2020 [facility] (35795) Absolute nRBC <0.01 <0.01 Normal 04-05-2020 [facility] (70092) Basophils/100 WBC 0.8 % Normal 04-05-2020 [facility] (d) [place] (79250) DTYPE Auto Diff Normal 04-05-2020 [facility] (23639) Eosinophils (Bld) 0.10 <0.46 k/uL Normal 04-05-2020 [facility] [#/Vol] [place] (30130) Eosinophils/100 WBC 1.6 % Normal 04-05-2020 [facility] (Bld) [place] (37178) Erythrocyte 13.5 11.5-15.0 % Normal 04-05-2020 [facility] distribution width [facility] (76353) (RBC) [Ratio] Hematocrit (Bld) 46.0 39.0-51.0 % Normal 04-05-2020 [facility] [Volume fraction] [facility] (97410) Hemoglobin (Bld) 16.3 13.0-17.0 g/dL Normal 04-05-2020 [facility] [Mass/Vol] [place] (70925) Lymphocytes (Bld) 1.84 1.00-4.00 k/uL Normal 04-05-2020 [facility] [#/Vol] [place] (04905) Lymphocytes/100 WBC 28.7 % Normal 04-05-2020 [facility] (Bld) [place] (03675) MCH (RBC) [Entitic 33.3 26.0-34.0 pG Normal 04-05-2020 [facility] mass] [place] (15740) MCHC (RBC) 35.4 30.5-36.0 g/dL Normal 04-05-2020 [facility] [Mass/Vol] [place] (83070) MCV (RBC) [Entitic 94.1 80.0-100.0 fL Normal 04-05-2020 [facility] vol] [place] (25973) Monocytes/100 WBC 9.3 % Normal 04-05-2020 [facility] ([facility]) [place] (04880) Neutrophils/100 WBC 59.6 % Normal 04-05-2020 [facility] ([facility]) [place] (84920) NRBCs 0.0 0 /100 WBC Normal 04-05-2020 [facility] (04110) Platelet mean volume 8.8 9.0-12.7 fL Low 0 [facility] ([facility]) [Entitic vol] [place] (30220) Platelets (d) 180 150-400 k/uL Normal 04-05-2020 [facility] [#/Vol] [place] (12805) RBC (d) [#/Vol] 4.89 4.20-6.00 m/uL Normal 04-05-2020 [facility] (54991) WBC (Bld) [#/Vol] 6.42 3.70-11.00 k/uL Normal 04-05-2020 [facility] (11726) cbc and differential on 2020-03-15 Abs Baso 0.05 <0.11 k/uL Normal 03-15-2020 [facility] (93605) Abs Niobrara 0.66 <0.87 k/uL Normal 03-15-2020 [facility] (71793) Abs Neut 3.38 1.45-7.50 k/uL Normal 03-15-2020 [facility] (51022) Absolute nRBC <0.01 <0.01 Normal 03-15-2020 [facility] (69517) Basophils/100 WBC 0.9 % Normal 03-15-2020 [facility] ([facility]) [place] (51646) DTYPE Auto Diff Normal 03-15-2020 [facility] (45867) Eosinophils (Bld) 0.08 <0.46 k/uL Normal 03-15-2020 [facility] [#/Vol] [place] (79287) Eosinophils/100 WBC 1.4 % Normal 03-15-2020 [facility] (Bld) [place] (94233) Erythrocyte 14.6 11.5-15.0 % Normal 03-15-2020 [facility] distribution width [facility] ([id number]) (RBC) [Ratio] Hematocrit (Bld) 45.3 39.0-51.0 % Normal 03-15-2020 [facility] [Volume fraction] [facility] (63770) Hemoglobin (Bld) 16.0 13.0-17.0 g/dL Normal 03-15-2020 [facility] [Mass/Vol] [place] (42698) Lymphocytes (Bld) 1.44 1.00-4.00 k/uL Normal 03-15-2020 [facility] [#/Vol] [place] (65702) Lymphocytes/100 WBC 25.7 % Normal 03-15-2020 [facility] (Bld) [place] (34026) MCH (RBC) [Entitic 33.5 26.0-34.0 pG Normal 03-15-2020 [facility] mass] [place] (84388) MCHC (RBC) 35.3 30.5-36.0 g/dL Normal 03-15-2020 [facility] [Mass/Vol] [place] (30395) MCV (RBC) [Entitic 95.0 80.0-100.0 fL Normal 03-15-2020 [facility] vol] [place] (81090) Monocytes/100 WBC 11.8 % Normal 03-15-2020 [facility] (Bld) [place] (65667) Neutrophils/100 WBC 60.2 % Normal 03-15-2020 [facility] (Bld) [place] (42584) NRBCs 0.0 0 /100 WBC Normal 03-15-2020 [facility] (59213) Platelet mean volume 9.4 9.0-12.7 fL Normal 0 [facility] (d) [Entitic vol] [place] (55491) Platelets (Bld) 223 150-400 k/uL Normal 03-15-2020 [facility] [#/Vol] [place] (78741) RBC (Bld) [#/Vol] 4.77 4.20-6.00 m/uL Normal 03-15-2020 [facility] (26884) WBC (Bld) [#/Vol] 5.61 3.70-11.00 k/uL Normal 03-15-2020 [facility] (30379) progress on 2020-01 PROGRESS HNO ID: [id number] Normal 02-24-2020 [facility] Author: Theresa Davis, RN, RN ([id number]) Service: ? Author Type: Registered Nurse Type: Progress Notes Filed: 02/24/2020 9:50 AM Note Text: Patient is here for IVAD port flush/blood draw per Nursing I nstitute protocol. IVAD is located in right upper chest. Site cleansed with Chloraprep IVAD accessed with a #20 gauge 3/4 non-coring Gripper needl e Flush with 5cc's Normal Saline. Blood Return: Good. 10 cc's blood aspirated and discarded. Blood drawn for CBC. Flushed with: 20 ml Normal Saline and 5 ml Heparin Lock Flus h. Non-coring needle removed. Paper tape/ gauze applied to puncture site. Site negative fo r redness, edema or tenderness. Patient tolerated procedure well. cbc and differential on 2020-02-24 Abs Baso 0.05 <0.11 k/uL Normal 02-24-2020 [facility] (59535) Abs Niobrara 0.57 <0.87 k/uL Normal 02-24-2020 [facility] (21455) Abs Neut 3.14 1.45-7.50 k/uL Normal 02-24-2020 [facility] (70942) Absolute nRBC <0.01 <0.01 Normal 02-24-2020 [facility] (33197) Basophils/100 WBC 0.9 % Normal 02-24-2020 [facility] (Bld) [place] (18884) DTYPE Auto Diff Normal 02-24-2020 [facility] (60794) Eosinophils (Bld) 0.10 <0.46 k/uL Normal 02-24-2020 [facility] [#/Vol] [place] (88214) Eosinophils/100 WBC 1.8 % Normal 02-24-2020 [facility] [facility] [place] ([id number]) Erythrocyte 14.2 11.5-15.0 % Normal 02-24-2020 [facility] distribution width C [facility] ([id number]) (RBC) [Ratio] Hematocrit (d) 46.2 39.0-51.0 % Normal 02-24-2020 [facility] [Volume fraction] [facility] (38674) Hemoglobin (Bld) 15.8 13.0-17.0 g/dL Normal 02-24-2020 [facility] [Mass/Vol] [place] (45794) Lymphocytes (Bld) 1.59 1.00-4.00 k/uL Normal 02-24-2020 [facility] [#/Vol] [place] (12049) Lymphocytes/100 WBC 29.1 % Normal 02-24-2020 [facility] (d) [place] (88778) MCH (RBC) [Entitic 32.6 26.0-34.0 pG Normal 02-24-2020 [facility] mass] [place] (15641) MCHC (RBC) 34.2 30.5-36.0 g/dL Normal 02-24-2020 [facility] [Mass/Vol] [place] (19085) MCV (RBC) [Entitic 95.3 80.0-100.0 fL Normal 02-24-2020 [facility] vol] [place] (29771) Monocytes/100 WBC 10.4 % Normal 02-24-2020 [facility] (d) [place] (10928) Neutrophils/100 WBC 57.8 % Normal 02-24-2020 [facility] (Bld) [place] (74395) NRBCs 0.0 0 /100 WBC Normal 02-24-2020 [facility] (28525) Platelet mean volume 9.2 9.0-12.7 fL Normal 0 [facility] ([facility]) [Entitic vol] [place] (59987) Platelets (Bld) 185 150-400 k/uL Normal 02-24-2020 [facility] [#/Vol] [place] (15724) RBC (d) [#/Vol] 4.85 4.20-6.00 m/uL Normal 02-24-2020 [facility] (79294) WBC (Bld) [#/Vol] 5.46 3.70-11.00 k/uL Normal 02-24-2020 [facility] (08705) cbc and differential on 2020-02-02 Abs Baso 0.04 <0.11 k/uL Normal 02-02-2020 [facility] (92716) Abs [place] 0.64 <0.87 k/uL Normal 02-02-2020 [facility] (46798) Abs Neut 2.56 1.45-7.50 k/uL Normal 02-02-2020 [facility] (98960) Basophils/100 WBC (Bld) 0.8 % Normal 2019 [facility] (20550) Eosinophils (Bld) [#/Vol] 0.09 <0.46 k/uL Normal [facility] (88564) Eosinophils/100 WBC (Bld) 1.8 % Normal [facility] (59625) Erythrocyte distribution 13.8 11.5-15.0 % Normal 02-01 [facility] width (RBC) [Ratio] [place] () Hematocrit (Bld) [Volume 46.5 39.0-51.0 % Normal 02-01 [facility] fraction] [place] () Hemoglobin (Bld) 16.1 13.0-17.0 g/dL Normal 02-02-2020 [facility] [Mass/Vol] [place] (81270) Lymphocytes (Bld) [#/Vol] 1.60 1.00-4.00 k/uL Normal [facility] (42976) Lymphocytes/100 WBC (Bld) 32.5 % Normal [facility] (31617) MCH (RBC) [Entitic mass] 32.9 26.0-34.0 pG Normal 02-01 [facility] (41866) MCHC (RBC) [Mass/Vol] 34.6 30.5-36.0 g/dL Normal 02-02-20 20 [facility] (04328) MCV (RBC) [Entitic vol] 94.9 80.0-100.0 fL Normal 02-01 [facility] (96174) Monocytes/100 WBC (Bld) 13.0 % Normal 2019 [facility] (78462) Neutrophils/100 WBC (Bld) 51.9 % Normal 05- [facility] (02198) Platelet mean volume 9.6 9.0-12.7 fL Normal 0 [facility] (Bld) [Entitic vol] [place] (51294) Platelets (Bld) [#/Vol] 172 150-400 k/uL Normal 2019 [facility] (84266) RBC (Bld) [#/Vol] 4.90 4.20-6.00 m/uL Normal 02-02-2020 [facility] (95295) WBC (Bld) [#/Vol] 5.17 3.70-11.00 k/uL Normal 02-02-2020 [facility] (59122) cbc and differential on 2020-01-12 Abs Baso 0.04 <0.11 k/uL Normal 01-12-2020 [facility] (73820) Abs [place] 0.55 <0.87 k/uL Normal 01-12-2020 [facility] (53692) Abs Neut 2.92 1.45-7.50 k/uL Normal 01-12-2020 [facility] (37822) Basophils/100 WBC (Bld) 0.8 % Normal 2019 [facility] (12145) Eosinophils (Bld) [#/Vol] 0.13 <0.46 k/uL Normal 12-30 [facility] (45562) Eosinophils/100 WBC (Bld) 2.5 % Normal 12-30 [facility] (19644) Erythrocyte distribution 13.5 11.5-15.0 % Normal 01-11 [facility] width (RBC) [Ratio] [place] (51532) Hematocrit (Bld) [Volume 45.1 39.0-51.0 % Normal 01-11 [facility] fraction] [place] (27640) Hemoglobin (Bld) 16.0 13.0-17.0 g/dL Normal 01-12-2020 [facility] [Mass/Vol] [place] (63411) Lymphocytes (Bld) [#/Vol] 1.49 1.00-4.00 k/uL Normal 12-30 [facility] (73670) Lymphocytes/100 WBC (Bld) 29.0 % Normal 12-30 [facility] (02648) MCH (RBC) [Entitic mass] 33.6 26.0-34.0 pG Normal 01-11 [facility] (58396) MCHC (RBC) [Mass/Vol] 35.5 30.5-36.0 g/dL Normal 01-12-20 [facility] (59819) MCV (RBC) [Entitic vol] 94.7 80.0-100.0 fL Normal 01-11 [facility] (32853) Monocytes/100 WBC (Bld) 10.7 % Normal 2019 [facility] (62878) Neutrophils/100 WBC (Bld) 57.0 % Normal 12-30 [facility] (19878) Platelet mean volume 9.0 9.0-12.7 fL Normal 0 [facility] (Bld) [Entitic vol] [place] (34270) Platelets (Bld) [#/Vol] 153 150-400 k/uL Normal 2019 [facility] (92226) RBC (Bld) [#/Vol] 4.76 4.20-6.00 m/uL Normal 01-12-2020 [facility] (51574) WBC (Bld) [#/Vol] 5.25 3.70-11.00 k/uL Normal 01-12-2020 [facility] (84935) comp metabolic panel on 2019-12-22 Albumin [Mass/Vol] 3.8 3.9-4.9 g/dL Low 12-22-2019 [facility] (12011) ALP [Catalytic 82 38-113 U/L Normal 12-22-2019 [facility] activity/Vol] [place] (17229) ALT [Catalytic 28 10-54 U/L Normal 12-22-2019 [facility] activity/Vol] [place] and (20600) Anion gap 6 9-18 mmol/L Low 12-22-2019 [facility] [Moles/Vol] [facility] (32014[facility] AST [Catalytic 13 14-40 U/L Low 12-22-2019 [facility] activity/Vol] [place] and (09062) Bilirubin [Mass/Vol] 0.6 0.2-1.3 mg/dL Normal 0 [facility] (27429) Calcium [Mass/Vol] 8.7 8.5-10.2 mg/dL Normal 12-22-2019 [facility] (93437) Chloride [Moles/Vol] 106 97-105 mmol/L High 0 [facility] (67378) CO2 [Moles/Vol] 26 22-30 mmol/L Normal 12-22-2019 [facility] (71132) Creatinine 0.95 0.73-1.22 mg/dL Normal 12-22-2019 [facility] [Mass/Vol] [place] (34652) eGFR- Amer. >60 Normal 12-22-2019 [facility] (56819) GFR/1.73 sq M >60 mL/min/{1.73_m Normal 12-22-2019 [facility] predicted among 2} [facility] (71348) non-blacks MDRD (S/P/Bld) [Vol rate/Area] Comment: Result Comment: eGFR (Estima maryjane GFR) Units of measure: mL/min/1.73 meters squared eGFR is derived from the ree xpressed MDRD Study equation using the following parameters: serum creatinine, age, gender and race. The creatinine assay has been calibrated to be traceable to IDMS. An eGFR <60 mL/min/1.73m2 fo r >3 months is consistent with chronic kidney disease. Refer to KDOQI guidelines for clinical interpretation. In patients with unstable re nal function, e.g. those with acute kidney injury, the eGFR may not accurately reflect actual GFR. Glucose [Mass/Vol] 94 74-99 mg/dL Normal 12-22-2019 [facility] (31437) Comment: Result Comment: The [place] Diabetes Association (ADA) provides guidance for cutoff values for fasting glucose and random glucose. The ADA defines fasting as no caloric intake for at least 8 hours. Fas ting plasma glucose results between 100 to 125 mg/dL indicate increased risk for diabetes (prediabetes). Fasting plasma glucose resul ts greater than or equal to 126 mg/dL meet the criteria for diagnosis of diabetes. In the absence of unequivocal hyperglycemia, results should be confirmed by repeat testing. In a patient with classic s ymptoms of hyperglycemia or hyperglycemic crisis, random plasma glucose results greater than or equal to 200 mg/dL meet the criteria for diagnosis of diabetes. Reference: Standards of [facility] Care in Diabetes 2016, [place] Diabetes Association. Diabetes Care. 2016.39(Suppl 1). Potassium [Moles/Vol] 3.7 3.7-5.1 mmol/L Normal 12-22-19 20 [facility] (01588) Protein [Mass/Vol] 5.9 6.3-8.0 g/dL Low 12-22-2019 [facility] (85096) Sodium [Moles/Vol] 138 136-144 mmol/L Normal 12-22-2019 [facility] (24170) Urea nitrogen [Mass/Vol] 20 9-24 mg/dL Normal 12-21 [facility] (65291) cbc and differential on 2019-12-22 Abs Baso 0.04 <0.11 k/uL Normal 12-22-2019 [facility] (90552) Abs [place] 0.63 <0.87 k/uL Normal 12-22-2019 [facility] (10379) Abs Neut 2.87 1.45-7.50 k/uL Normal 12-22-2019 [facility] (13717) Basophils/100 WBC (Bld) 0.8 % Normal 2019 [facility] (48036) Eosinophils (Bld) [#/Vol] 0.08 <0.46 k/uL Normal 11-30 [facility] (37594) Eosinophils/100 WBC (Bld) 1.5 % Normal 11-30 [facility] (88521) Erythrocyte distribution 13.3 11.5-15.0 % Normal 12-21 [facility] width (RBC) [Ratio] [place] (65086) Hematocrit (Bld) [Volume 45.4 39.0-51.0 % Normal 12-21 [facility] fraction] [place] (94668) Hemoglobin (Bld) 15.8 13.0-17.0 g/dL Normal 12-22-2019 [facility] [Mass/Vol] [place] (63932) Lymphocytes (Bld) [#/Vol] 1.60 1.00-4.00 k/uL Normal 11-30 [facility] (12182) Lymphocytes/100 WBC (Bld) 30.7 % Normal 11-30 [facility] (74439) MCH (RBC) [Entitic mass] 33.1 26.0-34.0 pG Normal 12-21 [facility] (71744) MCHC (RBC) [Mass/Vol] 34.8 30.5-36.0 g/dL Normal 12-22-19 20 [facility] (87922) MCV (RBC) [Entitic vol] 95.0 80.0-100.0 fL Normal 12-21 [facility] (07234) Monocytes/100 WBC (Bld) 12.1 % Normal 2019 [facility] (32614) Neutrophils/100 WBC (Bld) 54.9 % Normal 11-30 [facility] (75623) Platelet mean volume 9.4 9.0-12.7 fL Normal 0 [facility] (Bld) [Entitic vol] [place] (16395) Platelets (Bld) [#/Vol] 203 150-400 k/uL Normal 2019 [facility] (14147) RBC (Bld) [#/Vol] 4.78 4.20-6.00 m/uL Normal 12-22-2019 [facility] (93615) WBC (Bld) [#/Vol] 5.89 3.70-11.00 k/uL Normal 12-22-2019 [facility] (02495) cbc and differential on 2019-12-01 Abs Baso 0.03 <0.11 k/uL Normal 12-01-2019 [facility] (42498) Abs [place] 0.62 <0.87 k/uL Normal 12-01-2019 [facility] (67912) Abs Neut 3.20 1.45-7.50 k/uL Normal 12-01-2019 [facility] (65523) Basophils/100 WBC (Bld) 0.5 % Normal 2019 [facility] (53508) Eosinophils (Bld) [#/Vol] 0.07 <0.46 k/uL Normal [facility] (90866) Eosinophils/100 WBC (Bld) 1.3 % Normal [facility] (80527) Erythrocyte distribution 12.3 11.5-15.0 % Normal 11-30 [facility] width (RBC) [Ratio] [place] (91077) Hematocrit (Bld) [Volume 45.9 39.0-51.0 % Normal 11-30 [facility] fraction] [place] (16308) Hemoglobin (Bld) 16.0 13.0-17.0 g/dL Normal 12-01-2019 [facility] [Mass/Vol] [place] (46266) Lymphocytes (Bld) [#/Vol] 1.58 1.00-4.00 k/uL Normal [facility] (08320) Lymphocytes/100 WBC (Bld) 28.7 % Normal [facility] (74372) MCH (RBC) [Entitic mass] 33.3 26.0-34.0 pG Normal 11-30 [facility] (21288) MCHC (RBC) [Mass/Vol] 34.9 30.5-36.0 g/dL Normal 12-01-19 20 [facility] (44008) MCV (RBC) [Entitic vol] 95.6 80.0-100.0 fL Normal 11-30 [facility] (77117) Monocytes/100 WBC (Bld) 11.3 % Normal 2019 [facility] (95354) Neutrophils/100 WBC (Bld) 58.2 % Normal [facility] (34768) Platelet mean volume 9.4 9.0-12.7 fL Normal 0 [facility] (Bld) [Entitic vol] [place] (40320) Platelets (Bld) [#/Vol] 173 150-400 k/uL Normal 2019 [facility] (27872) RBC (Bld) [#/Vol] 4.80 4.20-6.00 m/uL Normal 12-01-2019 [facility] (51458) WBC (Bld) [#/Vol] 5.58 3.70-11.00 k/uL Normal 12-01-2019 [facility] (17481) progress on 2019-11 PROGRESS HNO ID: [id number] Normal 11-10-2019 [facility] Author: Theresa Davis, RN, RN ([id number]) Service: ? Author Type: Registered Nurse Type: Progress Notes Filed: 11/10/2019 10:38 AM Note Text: Patient is here for IVAD port flush/blood draw per Nursing I nstitute protocol. IVAD is located in right upper chest. Site cleansed with Chloraprep IVAD accessed with a #20 gauge 3/4 non-coring Gripper needl e Flush with 5cc's Normal Saline. Blood Return: Good. 10 cc's blood aspirated and discarded. Blood drawn for CBC and Gold top. Flushed with: 20 ml Normal Saline and 5 ml Heparin Lock Flus h. Non-coring needle removed. Paper tape/ gauze applied to puncture site. Site negative fo r redness, edema or tenderness. Patient tolerated procedure well. cbc and differential on 2019-11-10 Abs Baso 0.04 <0.11 k/uL Normal 11-10-2019 [facility] (64901) Abs [place] 0.62 <0.87 k/uL Normal 11-10-2019 [facility] (52848) Abs Neut 3.05 1.45-7.50 k/uL Normal 11-10-2019 [facility] (43304) Basophils/100 WBC (Bld) 0.7 % Normal 2019 [facility] (23940) Eosinophils (Bld) [#/Vol] 0.13 <0.46 k/uL Normal 11-01 [facility] (80267) Eosinophils/100 WBC (Bld) 2.4 % Normal 11-01 [facility] (71967) Erythrocyte distribution 13.1 11.5-15.0 % Normal 11-10 [facility] width (RBC) [Ratio] [place] (90973) Hematocrit (Bld) [Volume 45.8 39.0-51.0 % Normal 11-10 [facility] fraction] [place] (95490) Hemoglobin (Bld) 15.9 13.0-17.0 g/dL Normal 11-10-2019 [facility] [Mass/Vol] [place] (77693) Lymphocytes (Bld) [#/Vol] 1.58 1.00-4.00 k/uL Normal 11-01 [facility] (61055) Lymphocytes/100 WBC (Bld) 29.2 % Normal 11-01 [facility] (89418) MCH (RBC) [Entitic mass] 33.5 26.0-34.0 pG Normal 11-10 [facility] (19248) MCHC (RBC) [Mass/Vol] 34.7 30.5-36.0 g/dL Normal 11-10-19 20 [facility] (93995) MCV (RBC) [Entitic vol] 96.4 80.0-100.0 fL Normal 11-10 [facility] (57151) Monocytes/100 WBC (Bld) 11.4 % Normal 2019 [facility] (98437) Neutrophils/100 WBC (Bld) 56.3 % Normal 11-01 [facility] (23416) Platelet mean volume 9.0 9.0-12.7 fL Normal 0 [facility] (Bld) [Entitic vol] [place] (23653) Platelets (Bld) [#/Vol] 162 150-400 k/uL Normal 2019 [facility] (71413) RBC (Bld) [#/Vol] 4.75 4.20-6.00 m/uL Normal 11-10-2019 [facility] (81607) WBC (Bld) [#/Vol] 5.47 3.70-11.00 k/uL Normal 11-10-2019 [facility] (68732) [place] cbc and diff on 2019-10-16 Basophils/100 WBC (Bld) 1.1 % Normal 2019 [facility] (58676) Eosinophils/100 WBC (Bld) 2.7 % Normal 10-01 [facility] (73071) Erythrocyte distribution 14.3 11.5-15.0 % Normal 10-16 [facility] width (RBC) [Ratio] [place] (27591) Hematocrit (Bld) [Volume 44.2 39.0-51.0 % Normal 10-16 [facility] fraction] [place] (09331) Hemoglobin (Bld) 15.4 13.0-17.0 g/dL Normal 10-16-2019 [facility] [Mass/Vol] [place] (12807) Lymphocytes/100 WBC (Bld) 27.3 % Normal 10-01 [facility] (66089) MCH (RBC) [Entitic mass] 34.1 26.0-34.0 pg High 10-16 [facility] (59447) MCHC (RBC) [Mass/Vol] 34.8 30.5-36.0 g/dL Normal 10-16-19 20 [facility] (62552) MCV (RBC) [Entitic vol] 98.0 80.0-100.0 fL Normal 10-16 [facility] (88395) Neutrophils/100 WBC (Bld) 56.9 % Normal 10-01 [facility] (94903) Platelet mean volume 9.3 9.0-12.7 fL Normal 0 [facility] (Bld) [Entitic vol] [place] (49294) Comment: Result Comment: Test perform ed by: [facility] [place], [address] [place], [place] [address]. RBC (Bld) [#/Vol] 4.51 4.20-6.00 m/uL Normal 10-16-2019 [facility] (90718) WBC (Bld) [#/Vol] 5.49 3.70-11.00 k/uL Normal 10-16-2019 [facility] (81599) [place] Abs Baso 0.06 <0.11 k/uL Normal 10-16-2019 [facility] (89032) [place] Abs Eos 0.15 <0.46 k/uL Normal 10-16-2019 [facility] (22145) [place] Abs Lymp 1.50 1.00-4.00 k/uL Normal 10-16-2019 [facility] (37205) [place] Abs Niobrara 0.66 <0.87 k/uL Normal 10-16-2019 [facility] (96802) [place] Abs Neut 3.12 1.45-7.50 k/uL Normal 10-16-2019 [facility] (21364) [place]ara% 12.0 % Normal 10-16-2019 [facility] (52835) [place] Platelet Cnt 211 150-400 k/uL Normal 0 [facility] (91830) progress on 2019-10 PROGRESS HNO ID: [id number] Normal 10-16-2019 [facility] Author: Aundrea Herr (Jana) JANA [place] ([id number]) Service: ? Author Type: LICENSED NURSE Type: Progress Notes Filed: 10/16/2019 11:27 AM Note Text: [place] cbc and diff on 2019-09-25 Basophils/100 WBC (Bld) 1.0 % Normal 2018 [facility] (01812) Eosinophils/100 WBC (Bld) 2.0 % Normal 09-01 [facility] (45436) Erythrocyte distribution 14.4 11.5-15.0 % Normal 09-25 [facility] width (RBC) [Ratio] [place] (77476) Hematocrit (Bld) [Volume 45.4 39.0-51.0 % Normal 09-25 [facility] fraction] [place] (98073) Hemoglobin (Bld) 15.9 13.0-17.0 g/dL Normal 09-25-2019 [facility] [Mass/Vol] [place] (04261) Lymphocytes/100 WBC (Bld) 30.3 % Normal 09-01 [facility] (35877) MCH (RBC) [Entitic mass] 34.3 26.0-34.0 pg High 09-25 [facility] (91788) MCHC (RBC) [Mass/Vol] 35.0 30.5-36.0 g/dL Normal 09-25-20 19 [facility] (68451) MCV (RBC) [Entitic vol] 97.8 80.0-100.0 fL Normal 09-25 [facility] (73607) Neutrophils/100 WBC (Bld) 54.9 % Normal 09-01 [facility] (65232) Platelet mean volume 9.4 9.0-12.7 fL Normal 9 [facility] (Bld) [Entitic vol] [place] (63304) Comment: Result Comment: Test perform ed by: [facility] [place] [facility] [address], [place], [place] [address]. RBC (Bld) [#/Vol] 4.64 4.20-6.00 m/uL Normal 09-25-2019 [facility] (50453) WBC (Bld) [#/Vol] 4.92 3.70-11.00 k/uL Normal 09-25-2019 [facility] (20831) [place] Abs Baso 0.05 <0.11 k/uL Normal 09-25-2019 [facility] (17604) [place] Abs Eos 0.10 <0.46 k/uL Normal 09-25-2019 [facility] (36394) [place] Abs Lymp 1.49 1.00-4.00 k/uL Normal 09-25-2019 [facility] (01442) [place] Abs Niobrara 0.58 <0.87 k/uL Normal 09-25-2019 [facility] (67779) [place] Abs Neut 2.70 1.45-7.50 k/uL Normal 09-25-2019 [facility] (81673) [place] Niobrara% 11.8 % Normal 09-25-2019 [facility] (59814) [place] Platelet Cnt 179 150-400 k/uL Normal 9 [facility] (76616) [place] cbc and diff on 2019-09-03 Basophils/100 WBC (Bld) 0.7 % Normal 2018 [facility] (91373) Eosinophils/100 WBC (Bld) 2.1 % Normal [facility] (42379) Erythrocyte distribution 15.1 11.5-15.0 % High 09-03 [facility] width (RBC) [Ratio] [place] (03903) Hematocrit (Bld) [Volume 43.2 39.0-51.0 % Normal 09-03 [facility] fraction] [place] (46690) Hemoglobin (Bld) 15.1 13.0-17.0 g/dL Normal 09-03-2019 [facility] [Mass/Vol] [place] (33149) Lymphocytes/100 WBC (Bld) 27.7 % Normal [facility] (30969) MCH (RBC) [Entitic mass] 34.3 26.0-34.0 pg High 09-03 [facility] (12134) MCHC (RBC) [Mass/Vol] 35.0 30.5-36.0 g/dL Normal 09-03-20 19 [facility] (58821) MCV (RBC) [Entitic vol] 98.2 80.0-100.0 fL Normal 09-03 [facility] (48991) Neutrophils/100 WBC (Bld) 58.7 % Normal [facility] (93690) Platelet mean volume 9.4 9.0-12.7 fL Normal 9 [facility] (Bld) [Entitic vol] [place] (23406) Comment: Result Comment: Test perform ed by: [facility] [place], [address] [place], [place] [address]silke Rae, [place], [place] [address]. RBC (Bld) [#/Vol] 4.40 4.20-6.00 m/uL Normal 09-03-2019 [facility] (47689) WBC (Bld) [#/Vol] 5.66 3.70-11.00 k/uL Normal 09-03-2019 [facility] (36696) [place] Abs Baso 0.04 <0.11 k/uL Normal 09-03-2019 [facility] (21902) [place] Abs Eos 0.12 <0.46 k/uL Normal 09-03-2019 [facility] (16483) [place] Abs Lymp 1.57 1.00-4.00 k/uL Normal 09-03-2019 [facility] (17691) [place] Abs Niobrara 0.61 <0.87 k/uL Normal 09-03-2019 [facility] (82211) [place] Abs Neut 3.32 1.45-7.50 k/uL Normal 09-03-2019 [facility] (51037) [place] Ni[place]rara% 10.8 % Normal 09-03-2019 [facility] (52301) [place] Platelet Cnt 140 150-400 k/uL Low 9 [facility] (09364) [place] cbc and diff on 2019-08-13 Basophils/100 WBC (Bld) 1.3 % Normal 2018 [facility] (05379) Eosinophils/100 WBC (Bld) 2.5 % Normal 08-01 [facility] (47396) Erythrocyte distribution 14.5 11.5-15.0 % Normal 08-13 [facility] width (RBC) [Ratio] [place] (50306) Hematocrit (Bld) [Volume 44.2 39.0-51.0 % Normal 08-13 [facility] fraction] [place] (12121) Hemoglobin (Bld) 15.6 13.0-17.0 g/dL Normal 08-13-2019 [facility] [Mass/Vol] [place] (04351) Lymphocytes/100 WBC (Bld) 22.2 % Normal 08-01 [facility] (69636) MCH (RBC) [Entitic mass] 34.5 26.0-34.0 pg High 08-13 [facility] (00700) MCHC (RBC) [Mass/Vol] 35.3 30.5-36.0 g/dL Normal 08-13-20 19 [facility] (16965) MCV (RBC) [Entitic vol] 97.8 80.0-100.0 fL Normal 08-13 [facility] (32189) Neutrophils/100 WBC (Bld) 61.2 % Normal 08-01 [facility] (74305) Platelet mean volume 9.0 9.0-12.7 fL Normal 9 [facility] (Bld) [Entitic vol] [place] (03298) Comment: Result Comment: Test perform ed by: [facility] [place], [address] [place], [place] [address]. RBC (Bld) [#/Vol] 4.52 4.20-6.00 m/uL Normal 08-13-2019 [facility] (59100) WBC (Bld) [#/Vol] 4.78 3.70-11.00 k/uL Normal 08-13-2019 [facility] (85511) [place] Abs Baso 0.06 <0.11 k/uL Normal 08-13-2019 [facility] (11940) [place] Abs Eos 0.12 <0.46 k/uL Normal 08-13-2019 [facility] (23750) [place] Abs Lymp 1.06 1.00-4.00 k/uL Normal 08-13-2019 [facility] (26195) [place] Abs Niobrara 0.61 <0.87 k/uL Normal 08-13-2019 [facility] (16141) [place] Abs Neut 2.93 1.45-7.50 k/uL Normal 08-13-2019 [facility] (71046) [place] Ni[place]rara% 12.8 % Normal 08-13-2019 [facility] (82707) [place] Platelet Cnt 135 150-400 k/uL Low 9 [facility] (39442) progress on 2019-08 PROGRESS HNO ID: [id number] Normal 08-13-2019 [facility] Author: Kai Hackett [place] ([id number]) Service: ? Author Type: Physician Type: Progress Notes Filed: 08/13/2019 12:30 PM Note Text: Diagnosis: 1) CLL/SLL HPI: The patient is a 64-year-old male who in the fall of 19 09 developed a kidney stone. He had a CT scan done as part of the workup fo r this. The study incidentally revealed several enlarged retroperitoneal lymph nodes measuring up to approximately 15 mm in short axis diameter. Additionally, he had a CBC done on 08/04/12. That study showed a total whit e count was 11,700 with 43% lymphocytes. Hemoglobin was 13.8 g/dL and th e platelet count 342,000. A followup CT scan was done at the end of August 2012 in o er to assess stability of the lymph nodes. It showed that there was no si gnificant change. The patient had a flow cytometry performed on the peripheral blood that revealed a monoclonal population of B lymphocytes with a phe notype consistent with CLL. 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 He did not require adjuvant treatment. Underwent bone marrow biopsy 06/26/2016 to further work up ne w thrombocytopenia. Received one dose IVIG with essentially no change in platele t count. Started prednisone ~08/10/2016. Stopped several weeks later- -no impact on plt count. Previous therapy: 1) BR. First cycle 09/28 and 09/29/2016. He had ongoing thro mbocytopenia requiring transfusional support. Developed neutropenia that persisted after therapy. Hospitalized 11/23-11/24/2016 for NF. Had requi red Neupogen support for about 1-2 weeks. BR not administered for second cycle. 2) Venetoclax. Hospitalized on 12/20/2016 under a 23 observat ion to begin therapy. He had no acute side effects. No evidence of tumor lysis syndrome. Was on 400 mg a day dose for 2 weeks, then decreas ed to 200 mg daily as of 02/07 for worsening thrombocytopenia. Drug stoppe d in January 2017 after bone marrow biopsy demonstrated morphologic resolution of the CLL. Very low level CLL on flow cytometry. Current therapy: 1) Nplate. Presents for ongoing oncologic management. Interim history: Feels well and has no complaints today. No acute illnesses s jose last seen. Had influenza vaccination. No episodes of fever, chill or night sweats. Normal appetite. PMH, medications and allergies as below personally reviewed by me today. Any changes documented in appropriate section. ROS: Constitutional: See above. Neuro: Denies REED, vertigo, dizziness and imbalance. HEENT: No recent change in voice, vision or hearing. Resp: Denies cough, wheeze and hemoptysis. Denies shortness of breath at rest. CVS: Denies exertional chest pain, PND, orthopnea and LE jailyn ma. GI: Denies dysgeusia. Denies symptoms of stomatitis. Denies dysphagia and odynophagia. Denies reflux, n/v, change in bowel habits. : Denies dysuria or gross hematuria. No symptoms of bladde r outlet obstruction. Endo: Denies hot flashes. Denies polyuria and polydipsia. De nies heat and cold intolerance. Musculoskeletal: Denies bone, back, joint and muscular pain. Derm: Denies rash. Denies jaundice and diffuse pruritis. Heme: See above. Psych: Normal mood. PHYSICAL EXAM: Vitals: Blood pressure 137/77, pulse 62, temperature 37.1 ?C (98.7 ?F), temperature source Oral, weight 97.1 kg (214 lb). Well-appearing and in no acute distress. EYES: Sclerae are anicteric bilaterally. NECK: Supple. No enlargement of thyroid. LYMPHATIC: There is no palpable cervical, supraclavicular, a xillary or inguinal adenopathy. RESPIRATORY: Inspiratory breath sounds are of normal intensi ty in all gilman. No rales, wheezes or rhonchi. Expiratory phase is no rmal. CARDIOVASCULAR: Rhythm is regular. Normal intensity S1/S2. T here is no gallop or murmur. ABDOMEN: The abdomen is nondistended. No organomegaly. No te nderness. Extremities: No swelling or edema. SKIN: No jaundice or rash. No ecchymoses or petechiae. NEUROLOGIC: wharfmaster II-XII are grossly intact. No focal motor we akness. LABS: Component Latest Ref Rng AND Units 05/21/2019 06/11/201907/02/201907/23/2019 08/13/2019 WBC, [place] 3.70 - 11.00 k/uL 5.66 5.70 5.99 5.96 4.78 RBC, [place] 4.20 - 6.00 m/uL 4.56 4.62 4.82 4.76 4.52 Hemoglobin, [place] 13.0 - 17.0 g/dL 15.5 15.9 16.5 16.3 15. 6 Hematocrit, [place] 39.0 - 51.0 % 44.4 45.1 46.8 46.3 44.2 MCV, [place] 80.0 - 100.0 fL 97.4 97.6 97.1 97.3 97.8 MCH, [place] 26.0 - 34.0 pg 34.0 34.4 (H) 34.2 (H) 34.2 (H) 34.5 (H) MCHC, [place] 30.5 - 36.0 g/dL 34.9 35.3 35.3 35.2 35.3 RDW, [place] 11.5 - 15.0 % 14.7 14.3 14.0 13.8 14.5 Platelet Cnt, [place] 150 - 400 k/uL 162 199 230 162 135 (L) MPV, [place] 9.0 - 12.7 fL 9.2 8.8 (L) 9.1 9.1 9.0 Neut%, [place] % 58.8 55.1 53.7 57.4 61.2 Lymp%, [place] % 26.7 27.0 30.4 27.3 22.2 Niobrara%, [place] % 11.3 13.3 11.9 12.4 12.8 Eos%, [place] % 2.3 3.7 2.8 2.2 2.5 Baso%, [place] % 0.9 0.9 1.2 0.7 1.3 Abs Neut, [place] 1.45 - 7.50 k/uL 3.33 3.14 3.22 3.42 2.93 Abs Lymp, [place] 1.00 - 4.00 k/uL 1.51 1.54 1.82 1.63 1.06 Abs Niobrara, [place] <0.87 k/uL 0.64 0.76 0.71 0.74 0.61 Abs Eos, [place] <0.46 k/uL 0.13 0.21 0.17 0.13 0.12 Abs Baso, [place] <0.11 k/uL 0.05 0.05 0.07 0.04 0.06 ASSESSMENT/PLAN: (C91.10) CLL (chronic lymphocytic leukemia) (HCC) (primary e ncounter diagnosis) Assessment: -KPS is 100%. -Indication for therapy was profound thrombocytopenia not re sponsive to prednisone/IVIG. -No appreciable count recovery (aside from ANC due to filgra stim) 9 weeks post first cycle BR. -Was then treated with Vanetoclax for ~2 months. Repeat bone marrow biopsy then demonstrated morphologic clearance of CLL. Marrow remai celeste hypocellular. -CBC today continues to suggest complete hematologic respons e with exception ongoing ITP. Plan: -Continue to monitor. (D69.59) Thrombocytopenia, secondary Assessment: -Ongoing response to Nplate without side effects. -Drug will be administered provided platelet count is under 200,000. -Platelet count doing well with every three-week assessment/ treatment. Plan: -CBC/possible Nplate for plt count <200K every 3 weeks. Kai Hackett, DO comp metabolic panel on 2019-08-13 Albumin [Mass/Vol] 3.9 3.9-4.9 g/dL Normal 08-13-2019 [facility] (13337) ALP [Catalytic 75 38-113 U/L Normal 08-13-2019 [facility] activity/Vol] [facility] and (70337) ALT [Catalytic 9 10-54 U/L Low 08-13-2019 [facility] activity/Vol] [facility] and (68274) Anion gap 7 9-18 mmol/L Low 08-13-2019 [facility] AST [Catalytic 14 14-40 U/L Normal 08-13-2019 [facility] activity/Vol] [facility] and (64643) Bilirubin [Mass/Vol] 0.4 0.2-1.3 mg/dL Normal 9 [facility] (87143) Calcium [Mass/Vol] 8.9 8.5-10.2 mg/dL Normal 08-13-2019 [facility] (58065) Chloride [Moles/Vol] 106 97-105 mmol/L High 9 [facility] (78092) CO2 [Moles/Vol] 24 22-30 mmol/L Normal 08-13-2019 [facility] (95903) Creatinine 0.99 0.73-1.22 mg/dL Normal 08-13-2019 [facility] [Mass/Vol] [place] (06550) eGFR- Amer. >60 Normal 08-13-2019 [facility] (25369) GFR/1.73 sq M >60 mL/min/{1.73_m Normal 08-13-2019 [facility] predicted among 2} Amarjit posey (05195) non-blacks MDRD (S/P/Bld) [Vol rate/Area] Comment: Result Comment: eGFR (Estima maryjane GFR) Units of measure: mL/min/1.73 meters squared eGFR is derived from the ree xpressed MDRD Study equation using the following parameters: serum creatinine, age, gender and race. The creatinine assay has been calibrated to be traceable to IDMS. An eGFR <60 mL/min/1.73m2 fo r >3 months is consistent with chronic kidney disease. Refer to KDOQI guidelines for clinical interpretation. In patients with unstable re nal function, e.g. those with acute kidney injury, the eGFR may not accurately reflect actual GFR. Glucose [Mass/Vol] 102 74-99 mg/dL High 08-13-2019 [facility] (89475) Comment: Result Comment: The [place] Diabetes Association (ADA) provides guidance for cutoff values for fasting glucose and random glucose. The ADA defines fasting as no caloric intake for at least 8 hours. Fas ting plasma glucose results between 100 to 125 mg/dL indicate increased risk for diabetes (prediabetes). Fasting plasma glucose resul ts greater than or equal to 126 mg/dL meet the criteria for diagnosis of diabetes. In the absence of unequivocal hyperglycemia, results should be confirmed by repeat testing. In a patient with classic s ymptoms of hyperglycemia or hyperglycemic crisis, random plasma glucose results greater than or equal to 200 mg/dL meet the criteria for diagnosis of diabetes. Reference: Standards of [facility] Care in Diabetes 2016, [place] [employer] Association. Diabetes Care. 2016.39(Suppl 1). Potassium [Moles/Vol] 4.3 3.7-5.1 mmol/L Normal 08-13-20 19 [facility] (16878) Protein [Mass/Vol] 6.1 6.3-8.0 g/dL Low 08-13-2019 [facility] (61277) Sodium [Moles/Vol] 137 136-144 mmol/L Normal 08-13-2019 [facility] (41946) Urea nitrogen [Mass/Vol] 17 9-24 mg/dL Normal 08-13 [facility] (48356) cnovsp on 2019-11-1 3 CNOVSP Visit (SP) Office (HEMAWS) Normal [place] Brandon HUDSON LEE ([id number]) 1955 [facility] Date Time Provider Department ([id number]) 08/13/19 9:50 AM KAI HACKETT During your visit today, we recorded the following informati on about you: Temperature Pulse Blood pressure Weight 98.7 degrees 62/minute 137/77 97.1 kg Kai Hackett DO 08/13/2019 12:30 PM Signed Diagnosis: 1) CLL/SLL HPI: The patient is a 64-year-old male who in the fall of 19 09 developed a kidney stone. He had a CT scan done as part of t he workup for this. The study incidentally revealed severa l enlarged retroperitoneal lymph nodes measuring up to approximately 15 mm in short axis arely meter. Additionally, he had a CBC done on 08/04/12. That study showed a total white count was 11,700 with 43% lymphocytes. Hemoglobin was 13.8 g/dL and the platelet count 342,000. A followup CT scan was done at the end of August 2012 in o rder to assess stability of the lymph nodes. It showed that the re was no significant change. The patient had a flow cytometry performed on the peripheral blood that revealed a monoclonal population of B lymphocyte s with a phenotype consistent with CLL. 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 He did not require adjuvant treatment. Underwent bone marrow biopsy 06/26/2016 to further work up new thrombocytopenia. Received one dose IVIG with essentially no change in platele t count. Started prednisone ~08/10/2016. Stopped several weeks later--no impact on plt count. Previous therapy: 1) BR. First cycle 09/28 and 09/29/2016. He had ongoing thro mbocytopenia requiring transfusional support. Developed neutropenia suraj t persisted after therapy. Hospitalized 11/23-11/24/2016 for NF. Had required Neupogen support for about 1-2 weeks. BR not administered for second cycle. 2) Venetoclax. Hospitalized on 12/20/2016 under a 23 observat ion to begin therapy. He had no acute mike e effects. No evidence of tumor lysis syndrome. Was on 400 mg a day dose for 2 w eeks, then decreased to 200 mg daily as of 02/07 for worsening thrombocytopenia. Drug stopped in January 2017 after bone marrow biopsy demonstrated morphologic resolution of the CLL. Very low lev el CLL on flow cytometry. Current therapy: 1) Nplate. Presents for ongoing oncologic management. Interim history: Feels well and has no compla ints today. No acute illnesses since last seen. Had influenza vaccination. No episodes of fever, chill or night sweats. Normal appetite. PMH, medications and allergies as below personally rev iewed by me today. Any changes documented in appropriate section. ROS: Constitutional: See above. Neuro: Denies REED, vertigo, dizziness and imbalance. HEENT: No recent change in voice, vision or hearing. Resp: Denies cough, wheeze and hemoptysi s. Denies shortness of breath at rest. CVS: Denies exertional chest pain, PND, orthopnea and LE jailyn ma. GI: Denies dysgeusia. Denies symptoms of stomatitis. Denies dysphagia and odynophagia. Denies reflux, n/v, change in bowel habits. : Denies dysuria or gross hematuria. No symptoms of bladde r outlet obstruction. Endo: Denies hot flashes. Denies polyuri a and polydipsia. Denies heat and cold intolerance. Musculoskeletal: Denies bone, back, joint and muscular pain. Derm: Denies rash. Denies jaundice and diffuse pruritis. Heme: See above. Psych: Normal mood. PHYSICAL EXAM: Vitals: Blood pressure 137/77, pulse 62, temperature 37.1 ?C (98.7 ?F), temperature source Oral, weight 97.1 kg (214 lb). Well-appearing and in no acute distress. EYES: Sclerae are anicteric bilaterally. NECK: Supple. No enlargement of thyroid. LYMPHATIC: There is no palpa ble cervical, supraclavicular, axillary or inguinal adenopathy. RESPIRATORY: Inspiratory breath sounds are of no rmal intensity in all gilman. No rales, wheezes or rhonchi. Expiratory phase is normal. CARDIOVASCULAR: Rhythm is regular. Normal intens ity S1/S2. There is no gallop or murmur. ABDOMEN: The abdomen is nondistended. No organomegaly. No te nderness. Extremities: No swelling or edema. SKIN: No jaundice or rash. No ecchymoses or petechiae. NEUROLOGIC: wharfmaster II-XII are grossly intact. No focal motor we akness. LABS: Component Latest Ref Rng AND Units 05/21/2019 06/11/201907/02/201907/23/2019 08/13/2019 WBC, [place] 3.70 - 11.00 k/uL 5.66 5.70 5.99 5.96 4.78 RBC, [place] 4.20 - 6.00 m/uL 4.56 4.62 4.82 4.76 4.52 Hemoglobin, [place] 13.0 - 17.0 g/dL 15.5 15.9 16.5 16.3 15. 6 Hematocrit, [place] 39.0 - 51.0 % 44.4 45.1 46.8 46.3 44.2 MCV, [place] 80.0 - 100.0 fL 97.4 97.6 97.1 97.3 97.8 MCH, [place] 26.0 - 34.0 pg 34.0 34.4 (H) 34.2 (H) 34.2 (H) 34.5 (H) MCHC, [place] 30.5 - 36.0 g/dL 34.9 35.3 35.3 35.2 35.3 RDW, [place] 11.5 - 15.0 % 14.7 14.3 14.0 13.8 14.5 Platelet Cnt, [place] 150 - 400 k/uL 162 199 230 162 135 (L) MPV, [place] 9.0 - 12.7 fL 9.2 8.8 (L) 9.1 9.1 9.0 Neut%, [place] % 58.8 55.1 53.7 57.4 61.2 Lymp%, [place] % 26.7 27.0 30.4 27.3 22.2 Niobrara%, [place] % 11.3 13.3 11.9 12.4 12.8 Eos%, [place] % 2.3 3.7 2.8 2.2 2.5 Baso%, [place] % 0.9 0.9 1.2 0.7 1.3 Abs Neut, [place] 1.45 - 7.50 k/uL 3.33 3.14 3.22 3.42 2.93 Abs Lymp, [place] 1.00 - 4.00 k/uL 1.51 1.54 1.82 1.63 1.06 Abs Niobrara, [place] <0.87 k/uL 0.64 0.76 0.71 0.74 0.61 Abs Eos, [place] <0.46 k/uL 0.13 0.21 0.17 0.13 0.12 Abs Baso, [place] <0.11 k/uL 0.05 0.05 0.07 0.04 0.06 ASSESSMENT/PLAN: (C91.10) CLL (chronic lympho cytic leukemia) ([facility]) (primary encounter diagnosis) Assessment: -KPS is 100%. -Indication for therapy was profound thrombocytopenia not re sponsive to prednisone/IVIG. -No appreciable count recovery (aside fr om ANC due to filgrastim) 9 weeks post first cycle BR. -Was then treated with Vanet oclax for ~2 months. Repeat bone marrow biopsy then demonstrated morphologic clearance of CLL. Marrow remained h ypocellular. -CBC today continues to suggest complete hematologic r esponse with exception ongoing ITP. Plan: -Continue to monitor. (D69.59) Thrombocytopenia, secondary Assessment: -Ongoing response to Nplate without side effects. -Drug will be administered provided platelet count is under 200,000. -Platelet count doing well with every three-week assessment/ treatment. Plan: -CBC/possible Nplate for plt count <200K every 3 weeks. DO Mary Jane Kinney LPN 08/13/2019 10:48 AM Signed Nplate injection administered left arm, tolerated well , no immediate adverse reactions noted. Mary Jane Tiwari LPN Referring Provider: KAI HACKETT [[id number]] Allergies As of Date: 08/13/2019 Noted Allergy Reaction PENICILLINS 10/25/2012 16 - Unknown Date Reviewed: 08/13/2019 Reviewed by: Sylvia Pineda - Fully Assessed Reason for Visit: Established Patient [175] Primary Visit Diagnosis:CLL (chronic lymphocytic leukemia) ( HCC) [C91.10] Other Visit Diagnosis:Chronic ITP (idiopathic th rombocytopenia) (HCC) [D69.3] Order(s):TREATMENT PARAMETER-NOT NEEDED [[id number]] Order #: [id number]: 1 [facility] [[id number]] Order #: [id number] y: 1 STANDING [] romiPLOStim 952 mcg injection (NPLATE)Disp: Rfl: NaCl 0.9% iv infusionDisp: Rfl: diphenhydrAMINE 50 mg injection (BENADRYL)Disp: Rfl: hydrocortisone sodium succinate (PF) 100 mg injection (Solu-CORTEF)Disp: Rfl: EPINEPHrine 1 mg/mL (1 mL) 0.3 mg injectionDisp: Rfl: Follow-up and Disposition History Recorded Prescriptions as of 08/13/2019 Sig: POTASSIUM CHLORIDE ER 20 MEQ * Take 0.5 tablets by mouth onc * PEPCID COMPLETE ORAL Take 1 tablet by mouth once d* LISINOPRIL 10 MG TABLET Take 10 mg by mouth once petar* SODIUM CHLORIDE 0.9% FLUSH Access implanted vascular acc* HEPARIN, PORCINE (PF) 100 UNI* Access implanted vascular acc * IBUPROFEN 200 MG TABLET Take 200 mg by mouth every 6 * FUROSEMIDE 20 MG TABLET 1 tablet once daily. ACETAMINOPHEN 500 MG TABLET Take 1,000 mg by mouth every * MELATONIN 5 MG TABLET Take 5 mg by mouth at bedtime* SODIUM CHLORIDE 0.9% FLUSH Access implanted vascular acc* HEPARIN, PORCINE (PF) 100 UNI* Access implanted vascular acc * POTASSIUM CITRATE ER 5 MEQ (5* 1 tablet once daily. RANITIDINE 150 MG TABLET Take 150 mg by mouth once soha* Problem List As Of Date 08/13/2019 Noted Resolved CLL (chronic lymphocytic leukemia) [C91.10] 10/25/2012 Acute ITP (HCC) [D69.3] 07/12/2016 10/13/2016 Thrombocytopenia, secondary [D69.59] 10/13/2016 History of transfusion [Z92.89] 11/16/2016 More... Chemotherapy-induced neutropenia (HCC) [D70.1, *11/24/2016 Obesity, Class III, BMI >= 40 (morbid obesity) *01/17/2017 More... 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 Mary Jane Tiwari LPN Encounter Status:Closed by KAI HACEKTT DO on 08/13/19 afton cbc and diff on 2019-07-23 Basophils/100 WBC (Bld) 0.7 % Normal 2018 [facility] (92111) Eosinophils/100 WBC (Bld) 2.2 % Normal 07-02 [facility] (27713) Erythrocyte distribution 13.8 11.5-15.0 % Normal 07-23 [facility] width (RBC) [Ratio] [place] (81100) Hematocrit (Bld) [Volume 46.3 39.0-51.0 % Normal 07-23 [facility] fraction] [place] (74226) Hemoglobin (Bld) 16.3 13.0-17.0 g/dL Normal 07-23-2019 [facility] [Mass/Vol] [place] (79603) Lymphocytes/100 WBC (Bld) 27.3 % Normal 07-02 [facility] (22603) MCH (RBC) [Entitic mass] 34.2 26.0-34.0 pg High 07-23 [facility] (02439) MCHC (RBC) [Mass/Vol] 35.2 30.5-36.0 g/dL Normal 07-23-20 [facility] (18544) MCV (RBC) [Entitic vol] 97.3 80.0-100.0 fL Normal 07-23 [facility] (74627) Neutrophils/100 WBC (Bld) 57.4 % Normal 07-02 [facility] (03513) Platelet mean volume 9.1 9.0-12.7 fL Normal [facility] (Bld) [Entitic vol] [place] (63599) Comment: Result Comment: Test perform ed by: [place] [address]. RBC (Bld) [#/Vol] 4.76 4.20-6.00 m/uL Normal 07-23-2019 [facility] (72770) WBC (Bld) [#/Vol] 5.96 3.70-11.00 k/uL Normal 07-23-2019 [facility] (52002) [place] Abs Baso 0.04 <0.11 k/uL Normal 07-23-2019 [facility] (28950) [place] Abs Eos 0.13 <0.46 k/uL Normal 07-23-2019 [facility] (73586) [place] Abs Lymp 1.63 1.00-4.00 k/uL Normal 07-23-2019 [facility] (56752) [place] Abs Niobrara 0.74 <0.87 k/uL Normal 07-23-2019 [facility] (69976) [place] Abs Neut 3.42 1.45-7.50 k/uL Normal 07-23-2019 [facility] (02849) [place] Niobrara% 12.4 % Normal 07-23-2019 [facility] (33418) [place] Platelet Cnt 162 150-400 k/uL Normal 9 [facility] (02592) [place] cbc and diff on 2019-07-02 Basophils/100 WBC (Bld) 1.2 % Normal 2018 [facility] (75520) Eosinophils/100 WBC (Bld) 2.8 % Normal [facility] (09275) Erythrocyte distribution 14.0 11.5-15.0 % Normal 07-02 [facility] width (RBC) [Ratio] [place] (59205) Hematocrit (Bld) [Volume 46.8 39.0-51.0 % Normal 07-02 [facility] fraction] [place] (19773) Hemoglobin (Bld) 16.5 13.0-17.0 g/dL Normal 07-02-2019 [facility] [Mass/Vol] [place] (57730) Lymphocytes/100 WBC (Bld) 30.4 % Normal [facility] (68072) MCH (RBC) [Entitic mass] 34.2 26.0-34.0 pg High 07-02 [facility] (18904) MCHC (RBC) [Mass/Vol] 35.3 30.5-36.0 g/dL Normal 07-02-20 19 [facility] (26476) MCV (RBC) [Entitic vol] 97.1 80.0-100.0 fL Normal 07-02 [facility] (76354) Neutrophils/100 WBC (Bld) 53.7 % Normal [facility] (17390) Platelet mean volume 9.1 9.0-12.7 fL Normal 9 [facility] (Bld) [Entitic vol] [place] (00501) Comment: Result Comment: Test perform ed by: [facility] [place], [facility] [place] [address]. RBC (Bld) [#/Vol] 4.82 4.20-6.00 m/uL Normal 07-02-2019 [facility] (12117) WBC (Bld) [#/Vol] 5.99 3.70-11.00 k/uL Normal 07-02-2019 [facility] (87266) [place] Abs Baso 0.07 <0.11 k/uL Normal 07-02-2019 [facility] (57396) [place] Abs Eos 0.17 <0.46 k/uL Normal 07-02-2019 [facility] (49395) [place] Abs Lymp 1.82 1.00-4.00 k/uL Normal 07-02-2019 [facility] (01599) [place] Abs Niobrara 0.71 <0.87 k/uL Normal 07-02-2019 [facility] (36196) [place] Abs Neut 3.22 1.45-7.50 k/uL Normal 07-02-2019 [facility] (38180) [place] Niobrara% 11.9 % Normal 07-02-2019 [facility] (80615) [place] Platelet Cnt 230 150-400 k/uL Normal 9 [facility] (57662) replaced document: cbc-complete blood cn t no diff on 2017-06-19 Erythrocyte 61.2 35.1-43.9 fL High 06-19-2017 - [facility] S urgical distribution 06-19-2017 [facility] width Auto Ratio (47 891) (RBC) Erythrocyte 14.9 11.6-14.6 % High 06-19-2017 - [facility] S urgical distribution 06-19-2017 [facility] at[facility] width Ratio (42362) (RBC) Erythrocyte 61.2 35.1-43.9 fL High 06-19-2017 - [facility] S urgical distribution 06-19-2017 [facility] ates width Ratio (69592) (RBC) Erythrocytes 3.30 4.6-6.2 10*6/u Low 06-19-2017 - [facility] Surgical (RBC) L 06-19-2017 [facility] ([id number]) Hematocrit (HCT) 37.0 40-54 % Low 06-19-2017 - [facility] Surgical 06-19-2017 [facility] (48096) Hematocrit 37.0 40-54 % Low 06-19-2017 [facility] Irene rgical Volume Fraction 06-19-2017 [facility] (Bld) (46230) Hemoglobin (HGB) 11.9 13.0-16.5 g/dL Low 06-19-2017 - [facility] Surgical 06-19-2017 [facility] (82673) MCH 36.1 27.0-32.0 pg High 06-19-2017 - [facility] Shanon gical 06-19-2017 [facility] (04429) MCH Entitic mass 36.1 27.0-32.0 pg High 06-19-2017 [facility] Surgical (RBC) 06-19-2017 [facility] ([id number]) MCHC 32.2 32-36 Invalid 06-19-2017 - [facility] Shanon gical G/GL Interpretation 06-19-2017 [facility] Code (90094) MCHC mass conc 32.2 32-36 06-19-2017 - [facility] Surgical (RBC) G/GL 06-19-2017 [facility] ([id number]) MCV 112.1 80-94 fL High 06-19-2017 - [facility] Shanon gical 06-19-2017 [facility] ([id number]) MCV Entitic 112.1 80-94 fL High 06-19-2017 [facility] S urgical volume (RBC) 06-19-2017 [facility] (78060) Platelet mean 10.5 6.2-12.0 fL 06-19-2017 - [facility] Surgical volume Entitic 06-19-2017 [facility] ciates volume (Bld) (69558) Platelets 131 150-450 10*3/m Low 06-19-2017 - [facility] Shanon gical m3 06-19-2017 [facility] ([id number]) Platelets #/vol 131 150-450 10*3/m Low 06-19-2017 - [facility] (Bld) m3 06-19-2017 [facility] ([id number]) PMV by 10.5 6.2-12.0 fL Invalid 06-19-2017 - [facility] Shanon gical Wilmer-Artur Interpretation 06-19-2017 [facility] Code (06075) RBC #/vol (Bld) 3.30 4.6-6.2 10*6/u Low 06-19-2017 - [facility] L 06-19-2017 [facility] ([id number]) RDW-CA 14.9 11.6-14.6 % High 06-19-2017 - [facility] Shanon gical 06-19-2017 [facility] (68214) WBC #/vol (Bld) 4.6 4.4-11.0 10*9/L 06-19-2017 - [facility] 06-19-2017 [facility] ([id number]) WBC (Leukocytes) 4.6 4.4-11.0 10*9/L Invalid 06-19-2017 - [facility] Surgical Interpretation 06-19-2017 As[facility] ciates Code (20951) replaced document: basic metabolic profi le (bmp) on 2017-06-19 Anion gap 4 7 5-15 Invalid 06-19-2017 - [facility] S urgical molar conc Interpretation 06-19-2017 [facility] Code (73302) Anion gap molar 7 5-15 mmol/ 06-19-2017 - [facility] conc L 06-19-2017 [facility] ([id number]) BUN/Creatinine 15.3 RATIO 10-20 Invalid 06-19-2017 - [facility] Ratio Interpretation 06-19-2017 [facility] ci[facility] Code (62930) Calcium 8.9 8.5-10.1 mg/dL Invalid 06-19-2017 - [facility] Shanon gical Interpretation 06-19-2017 Asso ciates Code (33029) Chloride 105 98-107 mmol/ Invalid 06-19-2017 - [facility] Shanon gical L Interpretation 06-19-2017 [facility]so ciates Code (93696) CO2 ppres 27.0 21.0-32.0 mmol/ Invalid 06-19-2017 - [facility] Shanon gical (BldV) L Interpretation 06-19-2017 [facility]ates Code (18585) Creatinine 0.91 0.70-1.30 mg/dL Invalid 06-19-2017 - [facility] Irene rgical Interpretation 06-19-2017 [facility] ci[facility] Code (70968) eGFR 89 >60 mL/mi Invalid 06-19-2017 - [facility] Shanon gical (non-black) n Interpretation 06-19-2017 [facility] Code (96374) EST GFR - AA 107 >60 mL/mi Invalid 06-19-2017 - [facility] Surgical n Interpretation 06-19-2017 Asso ciates Code (88730) Glucose mass 93 70-110 mg/dL Invalid 06-19-2017 - [facility] Surgical conc Interpretation 06-19-2017 [facility]ates Code (70679) Potassium 4.2 3.5-5.1 mmol/ Invalid 06-19-2017 - [facility] Shanon gical L Interpretation 06-19-2017 [facility] Code (97786) Sodium 139 136-145 mmol/ Invalid 06-19-2017 - [facility] Shanon gical L Interpretation 06-19-2017 [facility] Code (82029) Urea nitrogen 14 7-18 mg/dL Invalid 06-19-2017 - [facility] Surgical Interpretation 06-19-2017 Asso ciates Code (65651) lab report: cbc-complete blood cnt no di ff on 2017-06-19 red blood cell 61.2 35.1-43.9 fL High 06-19-2017 - [facility] distribution width, 06-19-2017 [facility] (80657) size density lab report: basic metabolic profile (bmp ) on 2017-06-19 Anion gap 7 5-15 mmol/L Invalid 06-19-2017 - [facility] Shanon gical Interpretation Code 06-19-2017 [facility] (57337) CO2 27.0 21.0-32.0 mmol/L Invalid 06-19-2017 - [facility] Shanon gical Interpretation Code 06-19-2017 [facility] (62197) eGFR 107 >60 mL/min Invalid 06-19-2017 - [facility] Shanon gical (non-black) Interpretation Code 06-19-20 17 [facility] (37151) Glucose 93 70-110 mg/dL Invalid 06-19-2017 - [facility] Shanon gical Interpretation Code 06-19-2017 [facility] (53617) office visit: port consult on 2017-06-13 Documentation of Done Invalid 06-13-2017 [facility] Surgical current medications Interpretation Code 06-13-2017 [facility] (procedure) (57964) Fall risk No Invalid 06-13-2017 - [facility] Shanon gical assessment Interpretation Code 7 [facility] (77014) Protein mass conc Done Invalid 06-13-2017 - [facility] Surgical Interpretation Code 06-13-2017 [facility] ([id number]) Protein mass conc yes Invalid 06-13-2017 [facility] Surgical Interpretation Code 06-13-2017 [facility] ([id number]) Smoking cessation yes Invalid 06-13-2017 [facility] Surgical education Interpretation Code 06-13-2017 [facility] (procedure) ([id number]) Tobacco smoking Never Invalid 06-13-2017 - [facility] Surgical status [facility] Interpretation Code 06-13-20 17 [facility] ([id number]) Tobacco smoking Current every Invalid 06-13-2017 - [facility] Surgical status [facility] day smoker Interpretation Code 017 [facility] ([id number]) Tobacco use [facility]PH[facility] Current every Invalid - [facility] Surgical day smoker Interpretation Code 7 [facility] ([id number]) office visit on 03-04-20 Alcoholism no Invalid Interpretation 2015 [facility] Surgical counseling Code 01-19-2016 [facility] ([id number]) (procedure) Protein mass conc no Invalid Interpretation 01-19-2016 - [facility] Surgical Code 01-19-2016 [facility] ([id number]) Vital Signs Vital Sign Description Value / Unit Date Location The following section is limited to 5 en tries per type and includes entries from the following time range: 20170613 - [id number] 3. BMI (Body Mass Index) 42.68 kg/m2 06-13-2017 - 06-13-2017 [facility] ([id number]) Body Temperature 98.29 [degF] 06-28-2020 [facility] ([id number]) Body Temperature 97.7 [degF] 05-17-2020 [facility] ([id number]) Body Temperature 98 [degF] 06-13-2017 - 06-13-2017 [facility] ([id number]) Body weight 105.46 kg 06-28-2020 [facility] ([id number]) Body weight 107.96 kg 05-17-2020 [facility] ([id number]) BP Diastolic 64 mm[Hg] 06-28-2020 [facility] ([id number]) BP Diastolic 77 mm[Hg] 05-17-2020 [facility] ([id number]) BP Systolic 135 mm[Hg] 06-28-2020 [facility] ([id number]) BP Systolic 140 mm[Hg] 05-17-2020 [facility] ([id number]) Height 172.72 cm 06-13-2017 - 06-13-2017 [facility] ([id number]) Pulse (Heart Rate) 46 /min 06-28-2020 [facility] ([id number]) Pulse (Heart Rate) 44 /min 05-17-2020 [facility] ([id number]) Pulse (Heart Rate) 57 /min 06-13-2017 - 06-13-2017 [facility] S [facility] ([id number]) Respiratory Rate 20 /min 06-13-2017 - 06-13-2017 [facility] ([id number]) Weight 127.33 kg 06-13-2017 - 06-13-2017 [facility] ([id number]) Encounters Date Type Reason Provider Location 05-14-2020 - Hemonc Orders Only Chronic lymphoid Kai A Masci Hematology/Oncology 05-14-2020 leukemia, disease Comment: CLL (chronic lymphocytic colin kemia) ([facility]) (Primary Dx); Chronic ITP (idiopathic thro mbocytopenia) ([facility]) 06-28-2020 - Patient Chronic idiopathic [place] Hematolo gy/Oncology 06-28-2020 encounter thrombocytopenic [facility] procedure purpura Injection Jose [facility] Injection Jose [facility] Comment: Chronic ITP (idiopathic thro mbocytopenia) ([facility]) (Primary Dx) Chronic ITP (idiopathic thro mbocytopenia) ([facility]) (Primary Dx); CLL (chronic lymphocytic colin kemia) ([facility]) 06-08-2020 - Patient Chronic idiopathic [facility] [place] Hematol ogy/Oncology 06-08-2020 encounter thrombocytopenic [facility] procedure purpura [place] [facility] [place] [facility] Comment: Chronic ITP (idiopathic thro mbocytopenia) (HCC) (Primary Dx) 05-17-2020 - Patient Chronic idiopathic In[facility] [place] Hematol ogy/Oncology 05-17-2020 encounter thrombocytopenic [facility] procedure purpura [place] [facility] [place] [facility] Comment: Chronic ITP (idiopathic thro mbocytopenia) (HCC) (Primary Dx); CLL (chronic lymphocytic colin kemia) (HCC) Anemia, myelophthisic (HCC) (Primary Dx) Plan of Treatment Plan Description Date Location DIABETES SCREEN DIABETES SCREEN 05-17-2023 - [facility] 05-17-2023 ([id number]) DIABETES SCREEN DIABETES SCREEN 04-26-2023 [facility] ([id number]) INFLUENZA (#1) INFLUENZA (#1) 2020 - [facility] 06-01-2020 ([id number]) ADVANCE DIRECTIVE ADVANCE DIRECTIVE 2018 - [facility] inic DISCUSSION DISCUSSION 2018 ([id number]) PNEUMOVAX AGE 65 AND PNEUMOVAX AGE 65 AND 2018 - [facility] OVER WITH 5YR LOOKBACK OVER WITH 5YR LOOKBACK 2018 ([phone]) (#1) (#1) Appointment Appointment 06-20-2017 - [facility] Surgical 06-20-2017 [facility] ([id number]) Appointment Appointment 06-13-2017 - [facility] Surgical 06-13-2017 [facility] ([id number]) PROSTATE CANCER PROSTATE CANCER 02-16-2008 - [facility] SCREENING DISCUSSION SCREENING DISCUSSION 02-16-2008 ([id number] ) SHINGRIX VACCINE (1 of SHINGRIX VACCINE (1 of 2003 - [facility] 2) 2) 2003 ([id number]) COLORECTAL CANCER COLORECTAL CANCER 2003 - [facility] in SCREENING,SEE MODIFIER SCREENING,SEE MODIFIER 2003 ([id number] [id number]) LIPID SCREEN LIPID SCREEN 02-16-1988 - [facility] 02-16-1988 ([id number]) DTAP,TDAP,TD (1 - Tdap) DTAP,TDAP,TD (1 - Tdap) 02-16-1972 - [facility] 02-16-1972 (55698) CBC + DIFF CBC + DIFF Lab STAT CLL 05-14-2021 [facility] (chronic lymphocytic (70348) leukemia) (HCC) Chronic ITP (idiopathic thrombocytopenia) (HCC) 1 Occurrences starting 05/17/2020 until 05/14/2021 Comment: 1 Occurrences starting 05/17 until 05/14/2021 COMP METABOLIC PANEL COMP METABOLIC PANEL Lab 05-14-2021 [facility] Routine CLL (chronic (31745) lymphocytic leukemia) (HCC) Chronic ITP (idiopathic thrombocytopenia) (HCC) 1 Occurrences starting 05/17/2020 until 05/14/2021 Comment: 1 Occurrences starting 05/17 until 05/14/2021 no information [facility] ([id number]) Immunizations Vaccine Notes Status Date Location influenza, high-dose, influenza, high-dose, (completed) 05-28-2020 - [facility] quadrivalent vaccine quadrivalent vaccine 05-28-2020 ([id number]) (FLUZONE HIGH DOSE (FLUZONE HIGH DOSE QUADRIVALENT) QUADRIVALENT) Payers Payer Name Policy Number Location HOSPITAL[facility]MEDICAL GENERIC [id number] [facility] ([id number]) MEDICARE [id number] [facility] (44 195) The following information is from the original human readable contentNo Payer Records Found Social History Type Social History Date Location Description Tobacco smoking status Current every day smoker 05-17-2020 - [facility] NHIS 06-28-2020 ([id number]) History of tobacco use Pipe Smoker [facility] (86184) Tobacco use and Never used 05-17-2020 [facility] exposure 06-28-2020 (79970) Alcohol intake Current drinker of 05-17-2020 [facility] floyd alcohol (finding) 06-28-2020 (68574) Tobacco Comment 5 pipes daily 10-25-2012 - [facility] 10-25-2012 (60903) Alcohol Comment occasional 06-26-2016 - [facility] 06-26-2016 (04190) Sex Assigned At Not on file [facility] ([id number]) Exposure to SARS-CoV-2 Unable to assess [facility] (event) (56781) The following information is from the original human readable contentNo Social History Records Found History of Past Illness Problem Noted Date Resolved Date Acute ITP 07/12/2016 10/13/2016 Problem Noted Date Resolved Date Acute ITP 07/12/2016 10/13/2016 Problem Noted Date Resolved Date Acute ITP 07/12/2016 10/13/2016 Assessments Diagnosis Chronic ITP (idiopathic thrombocytopenia ) (HCC) - Primary Immune thrombocytopenic purpura CLL (chronic lymphocytic leukemia) (HCC) Chronic lymphoid leukemia, without menti on of having achieved remission Diagnosis CLL (chronic lymphocytic leukemia) (HCC) - Primary Chronic lymphoid leukemia, without menti on of having achieved remission Chronic ITP (idiopathic thrombocytopenia ) (HCC) Immune thrombocytopenic purpura Diagnosis Anemia, myelophthisic (HCC) - Primary Myelophthisis Diagnosis Chronic ITP (idiopathic thrombocytopenia ) (HCC) - Primary Immune thrombocytopenic purpura Diagnosis Chronic ITP (idiopathic thrombocytopenia ) (HCC) - 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 95.2 kg Order-specific weight), SUBCUTANEOUS, ONCE, 1 dose, Sun05/17/20 at 1030, Protect From Light - EXP: (4 HR) Dispense with Medication Guide. Review platelets prior to administration, if greater than 400,000/mcL, contact provider., Inactive Administered Medications - up to 3 most recent administrations Medication Order MAR Action Action Date Dose Rate Site romiPLOStim 952 mcg Given 06/28/2020 11:51 AM EDT 952 mcg Arm, Left injection (NPLATE) 952 mcg (10 mcg/kg/dose ? 95.2 kg Order-specific weight), SUBCUTANEOUS, ONCE, 1 dose, Sun06/28/20 at 1130, PROTECT FROM LIGHT - Protect From Light - EXP: (4 HR) Dispense with Medication Guide. Review platelets prior to administration, if greater than 400,000/mcL, contact provider., Advance Directives No Advanced Directives Records Found Documents on File Type Date Recorded Patient Manager Forms Explanati on Advance Directive(s) 06/26/2016 3:18 PM Advance Directive(s) 02/21/2017 1:01 PM Summary Purpose Family History No Family History Records Found Additional Source Comments FOR RECORDS PERTAINING TO PATIENTS WHO ARE OR HAVE BEEN ENROLLED IN A CHEMICAL DEPENDENCY/SUBSTANCE ABUSE PROGRAM, SOME INFORMATION MAY BE OMITTED. This clinical summary was aggregated from multiple sources. Caution should be exercised in using it in the provision of clinical care. This summary normalizes information from multiple sources, and as a consequence, information in this document may materially changethe coding, format and clinical context of patient data. In addition, data may be omittedin some cases. CLINICAL DECISIONS SHOULD BE BASED ON THE PRIMARY CLINICAL RECORDS. [facility] provides no warranty or guarantee of the accuracy or completeness of information in this document. UNRECOGNIZED CONTENT PROVIDED BELOW FOR UNRECOGNIZED SECTION Source Comments In the event this information is protected by the Federal Confidentiality of Alcohol and Drug Abuse Patient Records regulations: The Federal rules restrict any use of the information to criminally investigate or prosecute any alcohol or drug abuse patient.[facility] the event this information is protected by the Federal Confidentiality of Alcohol and Drug Abuse Patient Records regulations: The Federal rules restrict any use of the information to criminally investigate or prosecute any alcohol or drug abuse patient.[facility] the event this information is protected by the Federal Confidentiality of Alcohol and Drug Abuse Patient Records regulations: The Federal rules restrict any use of the information to criminally investigate or prosecute any alcohol or drug abuse patient.[facility] the event this information is protected by the Federal Confidentiality of Alcohol and Drug Abuse Patient Records regulations: The Federal rules restrict any use of the information to criminally investigate or prosecute any alcohol or drug abuse patient.[facility] the event this information is protected by the Federal Confidentiality of Alcohol and Drug Abuse Patient Records regulations: The Federal rules restrict any use of the information to criminally investigate or prosecute any alcohol or drug abuse patient.[facility] the event this information is protected by the Federal Confidentiality of Alcohol and Drug Abuse Patient Records regulations: The Federal rules restrict any use of the information to criminally investigate or prosecute any alcohol or drug abuse patient.[facility] the event this information is protected by the Federal Confidentiality of Alcohol and Drug Abuse Patient Records regulations: The Federal rules restrict any use of the information to criminally investigate or prosecute any alcohol or drug abuse patient.[facility] UNRECOGNIZED CONTENT PROVIDED BELOW FOR UNRECOGNIZED SECTION Reason for Visit Reason Comments Imm/Inj Reason Comments Blood Draw (CVAD) UNRECOGNIZED CONTENT PROVIDED BELOW FOR UNRECOGNIZED SECTION Nursing Notes Mary Jane Tiwari LPN - 05/17/2020 10:43 AM EDTPatient presents with: Imm/Inj Pt is identified by name and birthdate: Yes. Allergies and medications reviewed. Latex allergy? No. Does this patient have: Unplanned weight loss or gain of greater than 10 pounds, or a change of appetite over the last year?No Does the patient have any concerns about safety in the home/falls? Not at risk for falls Has the patient fallen in the past year? No Does the patient have difficulty performing or completing routine daily living activities? No Does this patient have concerns about personal safety? No Is patient having pain? Pain: No=0 (pain 0 on a scale of 0-10). Health Maintenance: Reviewed and updated. Does patient have MyChart access or Caregiver proxy: yes Pt/Caregiver willingness and readiness to learn assessed: Yes. Barriers: none Nplate injection administered right arm, tolerated well, no immediate adverse reactions noted. Mary Jane Tiwari LPN documented in this encounterAundrea Osei Lpn, LPN - 06/08/2020 10:29 AM EDTnplate deferred, parameters not met platelets 235 Aundrea Osei LPN documented in this encounterPeMary Jane levin LPN - 06/28/2020 11:26 AM EDT Patient presents with: Imm/Inj Pt is identified by name and birthdate: Yes. Allergies and medications reviewed. Latex allergy? No. Does this patient have: Unplanned weight loss or gain of greater than 10 pounds, or a change of appetite over the last year?No Does the patient have any concerns about safety in the home/falls? Not at risk for falls Has the patient fallen in the past year? No Does the patient have difficulty performing or completing routine daily living activities? No Does this patient have concerns about personal safety? No Is patient having pain? Pain: No=0 (pain 0 on a scale of 0-10). Health Maintenance: Reviewed and updated. Does patient have MyChart access or Caregiver proxy: yes Pt/Caregiver willingness and readiness to learn assessed: Yes. Barriers: none Nplate injection administered left arm, tolerated well, no immediate adverse reactions noted. Mary Jane Tiwari LPN documented in this encounter UNRECOGNIZED CONTENT PROVIDED BELOW FOR UNRECOGNIZED SECTION No Status Records Found UNRECOGNIZED CONTENT PROVIDED BELOW FOR UNRECOGNIZED SECTION INFORMATION SOURCE DATE CREATED AUTHOR AUTHOR'S ORGANIZATIO N 06/29/2020 [facility] William polanco
== END ==
PROVIDERS: PCP Family Medicine; Referring Provider Internal Medicine Cardiovascular Disease; Visit Provider Internal Medicine Cardiovascular Disease
DX: I10 Essential (primary) hypertension (principal); R00.1 Bradycardia, unspecified
CPT/HCPCS: 36415; 80048; 83735; 84436; 84443

== ENCOUNTER → 2020-04-13 10:57 | Outpatient (CLI) | payer MEDICARE, OTHER, SELFPAY ==
[2020-02-13 10:06] VITALS: BMI 35.9
[2020-04-08 15:12] VITALS: BMI 37.3
--- NOTE | 2020-04-13 10:58 | ECHOCS_ITS ---
Reason For Study: ARRHYTHMIA Procedure This was a 2D Doppler, Color Flow transthoracic echocardiogram. The study was technically difficult. Contrast injection was performed. Exam performed in department. Left Ventricle Moderately dilated left ventricle. Mild global left ventricular systolic dysfunction. The estimated ejection fraction is 45 %. Right Ventricle Normal RV size. Normal systolic function. Atria The left atrium is mildly enlarged. Normal right atrium. No doppler evidence for ASD. Mitral Valve There is no mitral annular calcification. Normal mitral valve. Mild (1+) mitral valve insufficiency. Tricuspid Valve Normal tricuspid valve. Mild tricuspid valve insufficiency. Right ventricular systolic pressure estimated to be 34 mmHg. Aortic Valve Trisinus/trileaflet aortic valve. Mild focal aortic valve calcification. Mild (1+) aortic valve insufficiency. Pulmonic Valve The pulmonic valve is not well visualized. Great Vessels Normal sized aortic root. Pericardium/Pleural No pericardial effusion. Medication Port Access. Diluted definity 3ml given slow IV push to enhance endocardial definition. MMode/2D Measurements & Calculations LVIDd: 6.7 cm IVSd: 0.89 cm Ao root diam: 3.3 cm LVIDs: 5.0 cm LVPWd: 1.0 cm RVDd: 4.0 cm FS: 26.1 % LAV(MOD-bp): 68.4 ml LVAd ap4: 44.7 cm2 SV(MOD-sp4): 96.3 ml LAV(MOD-bp) Indexed: 31.9 ml/m2 EDV(MOD-sp4): 186.1 ml LAV(MOD-sp2): 87.5 ml EDV(sp4-el): 196.9 ml LAV(MOD-sp4): 56.1 ml LVAs ap4: 28.0 cm2 ESV(MOD-sp4): 89.8 ml ESV(sp4-el): 93.2 ml EF(MOD-sp4): 51.8 % EF(sp4-el): 52.7 % SV(sp4-el): 103.7 ml LA A4 area: 20.7 cm2 LA dimension(2D): 4.3 cm RA A4 area: 17.9 cm2 Time Measurements MV dec time: 0.25 sec Doppler Measurements & Calculations MV E max dank: 85.6 cm/sec Lat Peak E' Dank: 8.7 cm/sec Med Peak E' Dank: 5.5 cm/sec MV A max dank: 62.1 cm/sec E/E' lat: 9.8 E/E' med: 15.5 MV E/A: 1.4 Ao V2 max: 160.9 cm/sec AI max dank: 414.5 cm/sec LV V1 max: 109.2 cm/sec Ao max P.4 mmHg AI max P.7 mmHg LV V1 max P.8 mmHg AI dec slope: 159.4 cm/sec2 AI P1/2t: 761.8 msec PA V2 max: 124.6 cm/sec TR max dank: 278.9 cm/sec TR max P.1 mmHg Interpretation Summary The study was technically difficult. Contrast injection was performed. Moderately dilated left ventricle. Mild global left ventricular systolic dysfunction. The estimated ejection fraction is 45 %. The left atrium is mildly enlarged. Mild (1+) mitral valve insufficiency. Mild tricuspid valve insufficiency. Mild focal aortic valve calcification. Mild (1+) aortic valve insufficiency. Right ventricular systolic pressure estimated to be 34 mmHg. Transmitral diastolic flow velocities suggest diastolic dysfunction (pseudonormal pattern). Ordering Physician: Kai Robles Referring Physician: SOUMYA SHEPPARD Performed By: Niki Clinton RDCS
== END ==
PROVIDERS: PCP Family Medicine; Referring Provider Internal Medicine Cardiovascular Disease; Visit Provider Internal Medicine Cardiovascular Disease
DX: I49.3 Ventricular premature depolarization (principal); I49.1 Atrial premature depolarization
CPT/HCPCS: 93306; Q9957; A4216; C8929

== ENCOUNTER → 2020-04-29 08:51 | Outpatient (CLI) | payer MEDICARE, OTHER, SELFPAY ==
[2020-04-08 15:12] VITALS: BMI 37.3
== END ==
PROVIDERS: PCP Family Medicine; Referring Provider Internal Medicine Cardiovascular Disease; Visit Provider Internal Medicine Cardiovascular Disease
DX: I47.2 Ventricular tachycardia (principal); R94.31 Abnormal electrocardiogram [ECG] [EKG]; R00.1 Bradycardia, unspecified
CPT/HCPCS: 93225; 93226

== ENCOUNTER → 2020-11-29 13:41 | Outpatient (CLI) | payer MEDICARE, OTHER, SELFPAY ==
[2020-06-18 09:41] VITALS: BMI 36.5
== END ==
PROVIDERS: PCP Family Medicine; Referring Provider Family Medicine; Visit Provider Family Medicine
DX: R33.9 Retention of urine, unspecified (principal)
CPT/HCPCS: 87077; 87086; 87088; 87186

== ENCOUNTER → 2022-05-23 | Outpatient (CLI) | payer MEDICARE, OTHER, SELFPAY ==
[2022-05-23 13:03] LABS: Anion Gap 5 (5-15); BUN 16 mg/dL (7-18); BUN/Creat Ratio 15.8 RATIO (10-20); Calcium,Total 9.1 mg/dL (8.5-10.1); Chloride 108 mmol/L (98-107); Creatinine, Serum 1.01 mg/dL (0.70-1.30); EST Glomerular Filtration Rate 78 mL/min (>60); Est Glom Filt Rate - Afr Amer 94 mL/min (>60); Glucose 94 mg/dL (74-106); Magnesium 2.1 mg/dL (1.6-2.6); Potassium 4.4 mmol/L (3.5-5.1); Sodium Level 139 mmol/L (136-145); Thyroid Stim Hormone (TSH) 1.83 uIU/mL (0.358-3.74)
== END | disposition home or self-care (01) ==
LOC: LAB 10:38
PROVIDERS: PCP Family Medicine; Referring Provider Physician Assistant Medical; Visit Provider Physician Assistant Medical
DX: I47.2 Ventricular tachycardia (principal); R00.1 Bradycardia, unspecified
CPT/HCPCS: 36415; 80048; 83735; 84443

== ENCOUNTER → 2022-06-06 | Outpatient (CLI) | payer MEDICARE, OTHER, SELFPAY | END | disposition home or self-care (01) | LOC: PSN 12:31 | PROVIDERS: PCP Family Medicine; Referring Provider Physician Assistant Medical; Visit Provider Physician Assistant Medical | DX: I47.2 Ventricular tachycardia (principal) | CPT/HCPCS: 93225; 93226 ==

== ENCOUNTER 2022-09-25 06:58 | Observation (INO) | payer MEDICARE, OTHER, SELFPAY ==
[2022-09-25] VITALS (26 sets, daily range): BP systolic 139–184; BP diastolic 69–105; PULSE 59–84; RESP 18–28; TEMP 36.9–37.2; O2SAT 87–97; BMI 37.8; BMI 37.3
--- NOTE | 2022-09-25 07:09 | RAD_ITS ---
INDICATION: Fever and cough EXAMINATION/TECHNIQUE: X-RAY - 2 AP portable views COMPARISON: 11/15/2018 FINDINGS: LINES/DEVICES: EKG leads overlie the chest. Stable appearance of a right subclavian port. LUNGS: No consolidation, edema or effusion. No pneumothorax. MEDIASTINUM AND CARDIOVASCULAR STRUCTURES: Cardiac silhouette not enlarged. Central airways and mediastinal contour are unremarkable. BONES AND SOFT TISSUES: Unremarkable. RAD/Chest 1 View (Portable) IMPRESSION: No acute pulmonary process, no interval change Electronically Signed: Paolo Meier MD at 8:21 EST ,
--- NOTE | 2022-09-25 07:11 | EDS_ITS ---
HPI History of Present Illness Chief Complaint: Shortness of Breath Informant: patient Onset/Context/Timing Onset: Days (5-6) Context: gradual Timing: Continuous Quality: Positive for - (sob) Current Severity: Moderate Maximum Severity: Moderate Worsened by: Exertion and Coughing Relieved by: Rest Associated Symptoms cough, fever, sore throat, subjective and chills Chest Pain: Positive for None Narrative Narrative: 67-year-old male has had progressively worsening subjective fevers, cough, sore throat, dyspnea over the past 5 or 6 days or so. No known sick contacts recently. Presents when influenza A is highly prevalent in the area as is COVID, RSV, other respiratory viruses but has been around no one that he knows with any of these. He does not have asthma or COPD but has been progressively dyspneic throughout this. He denies any chest pain or angina symptoms. He has some occasional left-sided sharp abdominal pains only when he coughs, but no other GI symptoms. No leg swelling that is new with this. Recent Illness/Hospitalization: No PFSH PFS Medical History Anemia Arthritis CLL (chronic lymphocytic leukemia) Essential hypertension HTN (hypertension) LV dysfunction NSVT (nonsustained ventricular tachycardia) Osteoarthritis of right hip Premature atrial contraction Sinus bradycardia 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, immune Home Medications acetaminophen 500 mg tablet 500 mg PO PRN PRN Pain 02/21/17 [History Last Taken Unknown] furosemide 20 mg tablet 20 mg PO DAILY 06/18/17 [History Last Taken Unknown] melatonin 5 mg capsule 5 mg PO DAILY PRN Insomnia 01/20/19 [History Last Taken Unknown] potassium chloride 10 mEq tablet,extended release 10 meq PO DAILY 04/08/20 [History Last Taken Unknown] tamsulosin 0.4 mg capsule 0.4 mg PO DAILY 12/20/20 [History Last Taken Unknown] lisinopril 40 mg tablet 40 mg PO DAILY #90 tabs 06/21/21 [Rx Last Taken Unknown] celecoxib 200 mg capsule (Celebrex) 200 mg PO DAILY #30 caps 06/06/22 [Rx Last Taken Unknown] amlodipine 2.5 mg tablet 2.5 mg PO DAILY #90 tabs 09/04/22 [Rx Last Taken Unknown] eltrombopag 12.5 mg tablet (Promacta) 12.5 mg PO DAILY 09/19/22 [History Last Taken Unknown] glucosamine sulfate 500 mg tablet (Glucosamine) 500 mg PO DAILY 09/19/22 [History Last Taken Unknown] metoprolol succinate 25 mg tablet,extended release 24 hr 12.5 mg PO QHS 09/19/22 [History Last Taken Unknown] pravastatin 20 mg tablet 20 mg PO DAILY 09/25/22 [History Last Taken Unknown] Allergy/AdvReac Type Severity Reaction Status Date / Time Penicillins [PCN] Allergy Unknown Verified 09/25/22 07:02 Family History Sister CAD (coronary artery disease) CHF (congestive heart failure) Presence of stent in coronary artery Brother Thoracic aortic aneurysm Cancer Prostate Brother Diabetes Cancer Bladder Surgical History History of appendectomy History of tonsillectomy Social History Smoking Status: Current some day smoker tobacco type: pipe alcohol intake: current details: minimal substance use type: does not use caffeine: Yes eating out: other details: 2 cups daily ROS ROS ED Constitutional Constitutional ED: Reports chills, fatigue, fever(s), headache(s), malaise and subjective Eyes Eyes: Denies change in vision or diplopia ENT ENT ED: Denies rhinorrhea or sore throat Cardiovascular Cardiovascular: Denies chest pain or palpitations Respiratory/Chest Respiratory/Chest: Reports cough, dyspnea and dyspnea on exertion Gastrointestinal Gastrointestinal: Denies abdominal pain, diarrhea, nausea or vomiting Genitourinary Genitourinary ED: Denies dysuria or hematuria Musculoskeletal Musculoskeletal: Denies back pain or neck pain Integumentary Denies abscess or rash Neurologic Neurologic: Reports headache(s); Denies paresthesias or weakness Psychiatric Psychiatric: Denies anxiety or suicidal thoughts EXAM Physical Exam Const Vital Signs: 09/25/22 06:59 09/25/22 07:03 09/25/22 07:13 Temperature 98.6 F Temperature Source Temporal Pulse Rate 61 Respiratory Rate 28 H Respiratory Effort Short of Breath Labored Respiratory Depth Deep Respiratory Pattern Tachypnea Blood Pressure 178/85 H Blood Pressure Mean 116 Pulse Ox 87 97 Oxygen Delivery Method Room Air Nasal Cannula Nasal Cannula Oxygen Flow Rate (L/min) 2 2 09/25/22 08:32 09/25/22 07:27 09/25/22 07:27 Temperature Temperature Source Pulse Rate 59 L Respiratory Rate 28 H Respiratory Effort Respiratory Depth Respiratory Pattern Blood Pressure Blood Pressure Mean Pulse Ox 93 96 Oxygen Delivery Method Nasal Cannula Nasal Cannula Oxygen Flow Rate (L/min) 2 2 09/25/22 08:41 09/25/22 09:59 09/25/22 11:40 Temperature Temperature Source Pulse Rate 61 Respiratory Rate 18 Respiratory Effort Respiratory Depth Respiratory Pattern Blood Pressure Blood Pressure Mean Pulse Ox 90 94 Oxygen Delivery Method Room Air Nasal Cannula Oxygen Flow Rate (L/min) 2 09/25/22 11:40 09/25/22 11:46 Temperature Temperature Source Pulse Rate Respiratory Rate 18 Respiratory Effort Short of Breath Respiratory Depth Respiratory Pattern Blood Pressure Blood Pressure Mean Pulse Ox 93 93 Oxygen Delivery Method Nasal Cannula Nasal Cannula Oxygen Flow Rate (L/min) 2.5 2.5 Positive well nourished and well developed Constitutional Narrative: Malaised-appearing, no distress General Appearance ED: well developed and NAD HEENT Reports moist mucous membranes HEENT Narrative: Mild posterior ear oropharyngeal erythema, no exudates. No trismus. No asymmetry. No petechiae on the palate. normocephalic and atraumatic Eyes PERRL and EOMs intact bilaterally Neck full ROM, no lymphadenopathy, supple, no meningeal signs and no JVD Resp Resp Narrative: Tachypnea, no respiratory distress. Expiratory Rales and wheezes bilaterally worse at the bases and worse on the left. Cardio regular rate, regular rhythm and no murmurs Rate: Negative for tachycardic GI non-tender and non-distended Auscultation: normoactive bowel sounds Palpation: soft Back/Spine no CVA tenderness General Back: other FROM Extremity normal to inspection and no calf tenderness General Extremety ED: Negative for edema, pulses abnormal or tenderness General Extremity: Negative for edema or pulses abnormal Neuro oriented x3, CN's II-XII intact bilaterally and no sensory deficits noted Sensorium / Orientation: awake and alert Motor Exam: strength 5/5 throughout Psych mental status grossly normal Skin no rashes or lesions noted and no wounds MDM MDM MDM Narrative Medical decision making narrative: He is hypoxic here on room air 87% and does not wear oxygen at home for any reason and has no history of chronic pulmonary disease. Therefore he was placed on 2 L nasal cannula which kept him well into the mid-high 90s, and obtained an infectious/cardiac work-up in addition to giving him a duo nebulizer treatment for his dyspnea which really helped. Chest x-ray 1 view on my interpretation negative for nothing acute, radiology in agreement. Taken him off of oxygen, he maintained in the low 90s on room air at rest. We ambulated him he went down to 88%. Initially the patient did not want to stay in hospital, wanted us to do what we could get him home. He understands I cannot send him home on oxygen. We gave him a couple more breathing treatments, and then upon getting him up to ambulate him, we removed his oxygen and he desatted down to 87% at rest before getting out of bed. I think this is all due to lower respiratory tract infection, although he does not have infiltrate treat, and I do not think that we need to work him up for pulmonary embolus. The rest of the work-up is unremarkable and the plan is to admit and discussed with hospitalist. Lab Data Attestation: I reviewed the patient's lab results. Labs: Laboratory Results - last 24 hr 09/25/22 09/25/22 07:12 07:12 WBC 4.3 L RBC 4.64 Hgb 15.0 Hct 43.2 MCV 93.1 MCH 32.3 H MCHC 34.7 RDW Std Deviation 49.8 H RDW Coeff of Lamberto 14.5 Plt Count 85 L MPV 8.7 Immature Gran % (Auto) 0.200 Neut % (Auto) 61.5 Lymph % (Auto) 21.6 [place] % (Auto) 16.5 H Eos % (Auto) 0.0 Baso % (Auto) 0.2 Absolute Neuts (auto) 2.7 Absolute Lymphs (auto) 0.93 Nucleated RBC % 0 Platelet Estimate SLT DEC Poikilocytosis 1+ Ovalocytes 1+ Sodium 137 Potassium 3.9 Chloride 105 Carbon Dioxide 28.0 Anion Gap 4 L BUN 17 Creatinine 0.86 Estim Creat Clear Calc 78.43 Est GFR (MDRD) Af Amer 113 Est GFR (MDRD) Non-Af 94 BUN/Creatinine Ratio 19.8 Glucose 113 H Calcium 8.4 L Troponin I High Sens 30 Radiography Diagnostic Testing: Clinical Impression(s) from Imaging Studies Chest X-Ray 12/26/22 07:09 IMPRESSION: No acute pulmonary process, no interval change Electronically Signed: Paolo Meier MD at 8:21 EST , Chest CT 09/25/22 09:12 IMPRESSION: Evidence of acute bronchitis with small associated pleural effusions. Follow-up recommended to ensure resolution. No organized infiltrate. Calcified coronary vessels No suspicious adenopathy Degenerative bony changes Simple hepatic cysts, no specific follow-up needed Electronically Signed: Paolo Meier MD at 10:54 EST , Rhythm Strip Rhythm Strip: Sinus Rhythm Rate: 60 Ectopy: None EKG Initial EKG: Attestation: I personally reviewed and interpreted this EKG as follows: Interpretation: Sinus Rhythm, No Acute Injury Pattern and LAFB Prior EKG tracings: available for review Prior: Unchanged Discharge Plan Dx/Rx/DC Orders Clinical Impression: Hypoxemia, Bronchitis with influenza, Influenza A Disposition Disposition: Acute Care [facility]
[2022-09-25 07:21] LABS: Absolute Lymphocyte Count 0.93 X10^3/uL (0.83-4.51); Absolute Neutrophil Count 2.7 X10^3/uL (2.0-7.7); Basophil# 0.01 X10^3/uL; Basophil% 0.2 % (0-1); Hematocrit 43.2 % (40-54); Lymphocyte # 0.93 X10^3/ul (0.83-4.51); Lymphocyte % 21.6 % (19-41); Mean Corp Hgb Conc 34.7 g/dL (32-36); Mean Corpuscular Hgb 32.3 pg (27.0-32.0); Mean Corpuscular Volume 93.1 fL (80-94); Mean Platelet Vol. 8.7 fl (6.2-12.0); Monocyte# 0.71 X10^3/uL; Monocyte% 16.5 % (0-10); NRBC Flagged by Analyzer 0 % (0-5); Neutrophil # 2.65 X10^3/uL (2.7-7.7); Neutrophil % 61.5 % (47-70); POSITIVE COUNT YES; Platelet Count 85 K/mm3 (150-450); RBC Distribution Width CV 14.5 % (11.6-14.6); RBC Distribution Width SD 49.8 fl (35.1-43.9); Red Blood Count 4.64 M/mm3 (4.6-6.2); White Blood Count 4.3 K/mm3 (4.4-11.0)
[2022-09-25] MEDS: Ipratropium/Albuterol Sulfate 3 ML AMPUL.NEB INHALATION ×2 (07:26→20:15)
[2022-09-25 07:29] LABS: Differential Indicated SCAN CRITERIA MET
[2022-09-25 07:44] LABS: Anion Gap 4 (5-15); BUN 17 mg/dL (7-18); BUN/Creat Ratio 19.8 RATIO (10-20); Calcium,Total 8.4 mg/dL (8.5-10.1); Chloride 105 mmol/L (98-107); Creatinine, Serum 0.86 mg/dL (0.70-1.30); EST Glomerular Filtration Rate 94 mL/min (>60); Est Glom Filt Rate - Afr Amer 113 mL/min (>60); Estimated Creatinine Clearance 78.43 ml/min; Glucose 113 mg/dL (74-106); Potassium 3.9 mmol/L (3.5-5.1); Sodium Level 137 mmol/L (136-145); Troponin-I HS 30 pg/mL (3.0-78.0)
[2022-09-25 07:50] LABS: Ovalocyte 1+; Platelet Estimate SLT DEC (ADEQ); Poikilocytosis 1+
--- NOTE | 2022-09-25 09:12 | CT_ITS ---
INDICATION: Fever and cough EXAMINATION: CT CHEST WITHOUT CONTRAST - CT Chest W/O Contrast Injection TECHNIQUE: Helically acquired images were obtained of the chest. A radiation dose optimization technique was used for this scan. IV Contrast dosage and agent: None. COMPARISON: Previous plain films FINDINGS: LUNGS, PLEURA AND LARGE AIRWAYS: Lung windows show the lungs to be normally expanded. Diffuse perihilar, perirectal thickening consistent with acute bronchitis. No organized infiltrate but there are small free-flowing bilateral pleural effusions. No pneumothorax. THYROID: No thyroid lesions. HEART AND PERICARDIUM: Heart size is normal. No pericardial effusion. CORONARY ARTERIES: Coronary artery calcification is seen. VESSELS: Thoracic aorta is not dilated. MEDIASTINUM AND VINCENT: No suspicious mediastinal or hilar adenopathy. Esophagus is unremarkable. No hiatal hernia. UPPER ABDOMEN: Limited cuts through the upper abdomen show multiple simple hepatic cysts. All measure fluid density on Hounsfield units. BONES: Bony structures show degenerative change. CT/Chest without Contrast IMPRESSION: Evidence of acute bronchitis with small associated pleural effusions. Follow-up recommended to ensure resolution. No organized infiltrate. Calcified coronary vessels No suspicious adenopathy Degenerative bony changes Simple hepatic cysts, no specific follow-up needed Electronically Signed: Paolo Meier MD at 10:54 EST ,
[2022-09-25] MEDS: Albuterol 2.5 MG/3 ML VIAL.NEB. INHALATION ×2 (11:38→15:01)
--- NOTE | 2022-09-25 14:18 | PCM.HP.STD ---
HPI - General General Date of Admission: 09/25/22 Date of Service: 09/25/22 Chief Complaint: Shortness of breath HPI Narrative DAXA LEE, is a 67 M with a history of CLL, thrombocytopenia, OA who presented to [facility] 09/25/2022 with worsening shortness of breath since . He began feeling short of breath and unwell and drastically worsened by the night but did not want to come to the hospital due to the holidays. He is continue to worsen so he presented today. In the ED initially on ambulation on room air he was 87%, later they went to ambulate him and sitting in bed on room air he was 87%. He was initially reluctant for admission but given his consistent hypoxia he ultimately was agreeable. Hospitalist contacted for admission. He currently is low 90s on 2.5 L of O2 at rest, does feel slightly better after receiving some nebulizer treatments. He is found to be influenza A positive. Has had some cough and reports that his left side hurts when he is coughing. Has had some stuffy nose which is improving, sore throat, headache. 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, immune Home Medications acetaminophen 500 mg tablet 500 mg PO PRN PRN Pain 02/21/17 [History Last Taken Unknown] furosemide 20 mg tablet 20 mg PO DAILY 06/18/17 [History Last Taken Unknown] melatonin 5 mg capsule 5 mg PO DAILY PRN Insomnia 01/20/19 [History Last Taken Unknown] potassium chloride 10 mEq tablet,extended release 10 meq PO DAILY 04/08/20 [History Last Taken Unknown] tamsulosin 0.4 mg capsule 0.4 mg PO DAILY 12/20/20 [History Last Taken Unknown] lisinopril 40 mg tablet 40 mg PO DAILY #90 tabs 06/21/21 [Rx Last Taken Unknown] celecoxib 200 mg capsule (Celebrex) 200 mg PO DAILY #30 caps 06/06/22 [Rx Last Taken Unknown] amlodipine 2.5 mg tablet 2.5 mg PO DAILY #90 tabs 09/04/22 [Rx Last Taken Unknown] eltrombopag 12.5 mg tablet (Promacta) 12.5 mg PO DAILY 09/19/22 [History Last Taken Unknown] glucosamine sulfate 500 mg tablet (Glucosamine) 500 mg PO DAILY 09/19/22 [History Last Taken Unknown] metoprolol succinate 25 mg tablet,extended release 24 hr 12.5 mg PO QHS 09/19/22 [History Last Taken Unknown] pravastatin 20 mg tablet 20 mg PO DAILY 09/25/22 [History Last Taken Unknown] Allergy/AdvReac Type Severity Reaction Status Date / Time Penicillins [PCN] Allergy Unknown Verified 09/25/22 07:02 Family History Sister CAD (coronary artery disease) CHF (congestive heart failure) Presence of stent in coronary artery Brother Thoracic aortic aneurysm Cancer Prostate Brother Diabetes Cancer Bladder Surgical History History of appendectomy History of tonsillectomy Social History Smoking Status: Current some day smoker tobacco type: pipe alcohol intake: current details: minimal substance use type: does not use caffeine: Yes eating out: other details: 2 cups daily ROS Constitutional Constitutional: Denies change in weight, chills, fever(s) or night sweats Eyes Eyes: Denies change in vision ENT HEENT: Reports headache(s), nasal congestion and sore throat Cardiovascular Cardiovascular: Denies chest pain or palpitations Respiratory/Chest Respiratory/Chest: Reports cough, productive cough, shortness of breath at rest and shortness of breath with exertion Gastrointestinal Gastrointestinal: Reports other Details: denies changes in bowel or bladder ; Denies abdominal pain Genitourinary Genitourinary: Reports other Details: denies changes in urination Musculoskeletal Musculoskeletal: Denies joint pain Neurologic Neurologic: Denies dizziness, focal weakness, numbness or tingling Psychiatric Psychiatric: Denies anxiety Hematologic/Lymphatic Hematologic/Lymphatic: Denies easy bleeding Allergic/Immunologic Allergic/Immunologic: Reports other Details: denies rashes Vital Signs Vital Signs Vital Signs: 09/25/22 06:59 09/25/22 07:03 09/25/22 07:13 Temperature 98.6 F Temperature Source Temporal Pulse Rate 61 Respiratory Rate 28 H Respiratory Effort Short of Breath Labored Respiratory Depth Deep Respiratory Pattern Tachypnea Blood Pressure 178/85 H Blood Pressure Mean 116 Pulse Ox 87 97 Oxygen Delivery Method Room Air Nasal Cannula Nasal Cannula Oxygen Flow Rate (L/min) 2 2 09/25/22 08:32 09/25/22 07:27 09/25/22 07:27 Temperature Temperature Source Pulse Rate 59 L Respiratory Rate 28 H Respiratory Effort Respiratory Depth Respiratory Pattern Blood Pressure Blood Pressure Mean Pulse Ox 93 96 Oxygen Delivery Method Nasal Cannula Nasal Cannula Oxygen Flow Rate (L/min) 2 2 09/25/22 08:41 09/25/22 09:59 09/25/22 11:40 Temperature Temperature Source Pulse Rate 61 Respiratory Rate 18 Respiratory Effort Respiratory Depth Respiratory Pattern Blood Pressure Blood Pressure Mean Pulse Ox 90 94 Oxygen Delivery Method Room Air Nasal Cannula Oxygen Flow Rate (L/min) 2 09/25/22 11:40 09/25/22 11:46 Temperature Temperature Source Pulse Rate Respiratory Rate 18 Respiratory Effort Short of Breath Respiratory Depth Respiratory Pattern Blood Pressure Blood Pressure Mean Pulse Ox 93 93 Oxygen Delivery Method Nasal Cannula Nasal Cannula Oxygen Flow Rate (L/min) 2.5 2.5 Weight Weight: 112.8 kg Body Mass Index (BMI) 37.8 Physical Exam Const alert and no apparent distress Constitutional Narrative: Oriented HEENT normocephalic and head/scalp atraumatic Eyes Eyes Narrative: EOM grossly intact, anicteric Neck supple Resp Resp Narrative: Slight increased WOB, diffusely coarse Cardio regular rate and regular rhythm GI soft to palpation, non-tender and non-distended Extremity Extremity Narrative: No edema appreciated Neuro moves all extremities Neuro Narrative: No overt focal deficits appreciated Psych Psych Narrative: Cooperative Results Lab / Micro Data Result Diagrams: 09/25/22 07:12 09/25/22 07:12 Labs: Laboratory Results - last 24 hr 09/25/22 07:12: WBC 4.3 L, RBC 4.64, Hgb 15.0, Hct 43.2, MCV 93.1, MCH 32.3 H, MCHC 34.7, RDW Std Deviation 49.8 H, RDW Coeff of Lamberto 14.5, Plt Count 85 L, MPV 8.7, Immature Gran % (Auto) 0.200, Neut % (Auto) 61.5, Lymph % (Auto) 21.6, [place] % (Auto) 16.5 H, Eos % (Auto) 0.0, Baso % (Auto) 0.2, Absolute Neuts (auto) 2.7, Absolute Lymphs (auto) 0.93, Nucleated RBC % 0, Platelet Estimate SLT DEC, Poikilocytosis 1+, Ovalocytes 1+ 09/25/22 07:12: Sodium 137, Potassium 3.9, Chloride 105, Carbon Dioxide 28.0, Anion Gap 4 L, BUN 17, Creatinine 0.86, Estim Creat Clear Calc 78.43, Est GFR (MDRD) Af Amer 113, Est GFR (MDRD) Non-Af 94, BUN/Creatinine Ratio 19.8, Glucose 113 H, Calcium 8.4 L, Troponin I High Sens 30 Micro: Microbiology 09/25/22 07:15 Nasal Secretion SARS-CoV-2 & FLU Antigen (Rapid) - Final Influenzae A Rhythm Strip Rhythm Strip: Sinus Rhythm Rate: 60 Ectopy: None Radiology Impression Chest X-Ray 09/25/22 07:09 IMPRESSION: No acute pulmonary process, no interval change Electronically Signed: Paolo Meier MD at 8:21 EST Reading Location ID and State: [facility] / [place] , Service support , Chest CT 09/25/22 09:12 IMPRESSION: Evidence of acute bronchitis with small associated pleural effusions. Follow-up recommended to ensure resolution. No organized infiltrate. Calcified coronary vessels No suspicious adenopathy Degenerative bony changes Simple hepatic cysts, no specific follow-up needed Electronically Signed: Paolo Meier MD at 10:54 EST , Assessment & Plan Assessment/Plan (1) Hypoxemia: (2) Bronchitis with influenza: PLAN: Plan #Acute hypoxia secondary to influenza A infection O2 87-88% on room air in the ED, satting low 90s on 2.[address] showed small pleural effusions and changes consistent with bronchitis and respiratory panel positive for influenza A Will start Tamiflu Incentive spirometer We will start Mucinex DuoNebs and albuterol as needed We will hold Promacta at this time #DVT ppx: Has ITP and low platelets, is ambulatory and functional at baseline, will start with SCDs Daniella Bolden MD Charges/Coding Visit Charges OBSV E&M: 71421 Initial observation care L2
[2022-09-25] MEDS: Acetaminophen 325 MG Tablet 650 MG PO (19:07)
[2022-09-25] MEDS: Mag Hydrox/Al Hydrox/Simeth 30 ML UDC PO (19:07)
--- NOTE | 2022-09-25 19:35 | NURSING ---
meds are not scanning for this pt either, just like my other 4 patients.
[2022-09-25] MEDS: Metoprolol(XL)Succ 25 MG Tablet 12.5 MG PO (22:09)
[2022-09-25] MEDS: MELATONIN 10 MG TABLET 5 MG PO (22:09)
[2022-09-25] MEDS: guaiFENesin 1,200 MG Tablet 1200 MG PO (22:09)
[2022-09-25] MEDS: Oseltamivir Phosphate 75 MG Capsule PO (22:09)
[2022-09-25 22:32] LABS: Magnesium 2.1 mg/dL (1.6-2.6)
--- NOTE | 2022-09-25 23:08 | PN.HOSP_ITS ---
Hospitalist Note Patient with 6 beat run VT, asymptomatic. Mag ordered and normal level. director of medical staff services notes HR has varied although patient asymptomatic. Currently BP elevated with PRN hydralazine recommended.
--- NOTE | 2022-09-25 23:08 | PCM.HOSP.N ---
Hospitalist Note Patient with 6 beat run VT, asymptomatic. Mag ordered and normal level. staff anesthetist notes HR has varied although patient asymptomatic. Currently BP elevated with PRN hydralazine recommended.
[2022-09-26] VITALS (10 sets, daily range): BP systolic 152–182; BP diastolic 63–80; PULSE 58–88; RESP 17–24; TEMP 36.6–36.9; O2SAT 94–98
--- NOTE | 2022-09-26 05:55 | EKG12_ITS ---
Test Reason : MORNING EKG Blood Pressure : / mmHG Vent. Rate : 067 BPM Atrial Rate : 067 BPM P-R Int : 094 ms QRS Dur : 108 ms QT Int : 450 ms P-R-T Axes : 042 -36 009 degrees QTc Int : 475 ms Sinus rhythm with short MA with Premature supraventricular complexes Left axis deviation Nonspecific T wave abnormality Abnormal ECG Confirmed by RADHA CH, FRANCES ([id number]), assignment desk editor KAILASH MENDOZA ([id number]) on 09/28/2022 8:18:38 AM Referred By: ISMAEL Confirmed By:FRANCES GARCIA MD
[2022-09-26] MEDS: Ipratropium/Albuterol Sulfate 3 ML AMPUL.NEB INHALATION ×2 (06:49→12:09)
[2022-09-26 06:52] LABS: Absolute Lymphocyte Count 1.14 X10^3/uL (0.83-4.51); Absolute Neutrophil Count 3.2 X10^3/uL (2.0-7.7); Basophil# 0.02 X10^3/uL; Basophil% 0.4 % (0-1); Hemoglobin 15.6 g/dL (13.0-16.5); Lymphocyte # 1.14 X10^3/ul (0.83-4.51); Lymphocyte % 22.5 % (19-41); Mean Corp Hgb Conc 33.2 g/dL (32-36); Mean Corpuscular Hgb 30.9 pg (27.0-32.0); Mean Corpuscular Volume 93.1 fL (80-94); Mean Platelet Vol. 9.7 fl (6.2-12.0); Monocyte# 0.66 X10^3/uL; NRBC Flagged by Analyzer 0 % (0-5); Neutrophil # 3.23 X10^3/uL (2.7-7.7); Neutrophil % 63.7 % (47-70); POSITIVE COUNT YES; Platelet Count 82 K/mm3 (150-450); RBC Distribution Width CV 14.5 % (11.6-14.6); RBC Distribution Width SD 49.8 fl (35.1-43.9); Red Blood Count 5.05 M/mm3 (4.6-6.2); White Blood Count 5.1 K/mm3 (4.4-11.0)
[2022-09-26 07:18] LABS: ALB/GLOB Ratio 0.8 RATIO (0.9-2.4); AST(SGOT) 29 U/L (15-37); Alanine Aminotransfer ALT/SGPT 25 U/L (16-61); Albumin, Serum 2.7 g/dL (3.2-5.0); Alkaline Phosphatase 59 U/L (45-117); Anion Gap 4 (5-15); BUN 13 mg/dL (7-18); BUN/Creat Ratio 17.4 RATIO (10-20); Calcium,Total 8.5 mg/dL (8.5-10.1); Chloride 104 mmol/L (98-107); Creatinine, Serum 0.75 mg/dL (0.70-1.30); EST Glomerular Filtration Rate 110 mL/min (>60); Est Glom Filt Rate - Afr Amer 133 mL/min (>60); Estimated Creatinine Clearance 67.45 ml/min; Globulin 3.6 g/dL (2.2-4.2); Glucose 142 mg/dL (74-106); Potassium 3.8 mmol/L (3.5-5.1); Protein, Total 6.3 g/dL (6.4-8.2); Sodium Level 137 mmol/L (136-145)
[2022-09-26] MEDS: Oseltamivir Phosphate 75 MG Capsule PO (09:27)
[2022-09-26] MEDS: Lisinopril 40 MG Tablet PO (09:27)
[2022-09-26] MEDS: guaiFENesin 1,200 MG Tablet 1200 MG PO (09:27)
[2022-09-26] MEDS: amLODIPine 2.5 MG Tablet PO (09:27)
[2022-09-26] MEDS: Acetaminophen 325 MG Tablet 650 MG PO (09:41)
[2022-09-26] MEDS: Furosemide 20 MG Tablet PO (11:36)
--- NOTE | 2022-09-26 11:58 | CASEMGMT ---
JACOB PERALTA NOTE: JACOB PERALTA to room. Introduced self and role to pt and , who is at bedside. Home O2 ambulatory testing has been completed. Pt does not qualify for home O2. They are aware. states she just purchased a pulse ox. Pt denies having any discharge planning needs or concerns. He states he does not feel he needs HHC or OP therapy at this time. He and made aware, if in the future he is interested in therapy, to discuss this w/his PCP. They voice understanding. Yann SIERRA RN, CM
--- NOTE | 2022-09-26 13:45 | DCINST_ITS ---
Discharge Instructions Diet Discharge Diet: No restrictions Activity Discharge Activity: Return to Normal Activity Follow Up Care Test Results: Test results from this visit will be discussed in further detail at your follow- up appointment, if applicable. Discharge Plan Admission Admit Date/Time: 09/25/22 14:07 Primary Reason for Your Visit: Shortness of breath Attending Provider: Daniella Bolden Primary Care Provider: Ivan Kamara Instructions Patient Instructions: Adult Self-Care for Colds Additional Instructions / Restrictions: *Please take this with you to your next doctors appointment* ?You will be sent home with a prescription for Tamiflu, you will take 1 dose t onight and continue to take this twice a day, your last dose will be on the morning of the . ?Can use the ipratropium inhaler 2 inhalations 3 times a day in addition to the albuterol for the first day followed by 2 inhalations up to 3 times a day as needed for shortness of breath along with the albuterol ?These have been sent to your preferred pharmacy on file ?Continue your other home medications -Please call your primary care provider's office upon discharge to schedule a hospital follow up within 1 week. -For any concerning signs or symptoms please call 911 or proceed to the nearest emergency department Discharge Orders/Prescriptions Prescriptions: New oseltamivir 75 mg Capsule 75 mg PO BID 4 Days Qty: 8 0RF albuterol sulfate [ProAir HFA] 90 mcg/actuation HFA aerosol inhaler 2 inh inhalation Q8H Qty: 6.7 0RF Rx Instructions: Can use the albuterol inhaler 2 inhalations 3 times a day in addition to that ipratropium for the first day followed by 2 inhalations up to 3 times a day as needed for shortness of breath as well as the ipratropium Atrovent HFA 17 mcg/actuation HFA aerosol inhaler 2 puff inhalation Q8H Qty: 12.9 0RF Rx Instructions: Can use the ipratropium inhaler 2 inhalations 3 times a day in addition to the albuterol for the first day followed by 2 inhalations up to 3 times a day as needed for shortness of breath along with the albuterol Continued melatonin 5 mg capsule 5 mg PO QHS PRN PRN (Reason: Insomnia) potassium chloride 10 mEq tablet extended release 10 meq PO DINNER tamsulosin 0.4 mg capsule 0.4 mg PO DINNER metoprolol succinate 25 mg tablet extended release 24 hr 12.5 mg PO QHS glucosamine sulfate [Glucosamine] 500 mg tablet 500 mg PO DINNER Rx Instructions: administer with a meal Promacta 12.5 mg tablet 12.5 mg PO DAILY Rx Instructions: administer on an empty stomach, at least 1 hour before or 2 hours after food/meal(s) acetaminophen 500 MG tablet 500 mg PO PRN PRN (Reason: Pain) furosemide 20 MG tablet 20 mg PO DAILY Label Comments: WATER RETENTION pravastatin 20 mg tablet 20 mg PO DINNER Label Comments: TAKE 1 TABLET BY MOUTH at supper lisinopril 40 mg tablet 40 mg PO DAILY Qty: 90 3RF celecoxib [Celebrex] 200 mg capsule 200 mg PO DAILY Qty: 30 0RF Rx Instructions: Do not take in conjunction with other NSAIDs including ibuprofen. Tylenol is okay. amlodipine 2.5 mg tablet 2.5 mg PO DAILY Qty: 90 3RF Referrals / Follow Up: Ivan Kamara MD [Primary Care Provider] - Within 1 Week Disposition Disposition (needs filled in before D/C Order can be placed): Home, Self Care
--- NOTE | 2022-09-26 13:58 | DS.PCM_ITS ---
Providers Date of Admission: 09/25/22 Date of Discharge: 09/26/22 Primary Care Physician: Dr. Ivan Kamara MD Reason For Visit: HYPOXIA SECONDARY TO INFLUENZA A Diagnosis Discharge Diagnosis (1) Hypoxemia: Status: Acute Code(s): R09.02 - Hypoxemia (2) Bronchitis with influenza: Status: Acute Code(s): J11.1 - Influenza due to unidentified influenza virus with other respiratory manifestations Plan #Acute hypoxia secondary to influenza A infection ITP Medications at Discharge Home Medications acetaminophen 500 mg tablet 500 mg PO PRN PRN Pain 02/21/17 furosemide 20 mg tablet 20 mg PO DAILY 06/18/17 melatonin 5 mg capsule 5 mg PO QHS PRN PRN Insomnia 01/20/19 potassium chloride 10 mEq tablet,extended release 10 meq PO DINNER 04/08/20 tamsulosin 0.4 mg capsule 0.4 mg PO DINNER 12/20/20 lisinopril 40 mg tablet 40 mg PO DAILY #90 tabs 06/21/21 celecoxib 200 mg capsule (Celebrex) 200 mg PO DAILY #30 caps 06/06/22 amlodipine 2.5 mg tablet 2.5 mg PO DAILY #90 tabs 09/04/22 eltrombopag 12.5 mg tablet (Promacta) 12.5 mg PO DAILY 09/19/22 glucosamine sulfate 500 mg tablet (Glucosamine) 500 mg PO DINNER 09/19/22 metoprolol succinate 25 mg tablet,extended release 24 hr 12.5 mg PO QHS 09/19/22 pravastatin 20 mg tablet 20 mg PO DINNER 09/25/22 albuterol sulfate 90 mcg/actuation aerosol inhaler (ProAir HFA) 2 inh inhalation Q8H shortness of breath or wheezing #6.7 grams 09/26/22 ipratropium bromide 17 mcg/actuation HFA aerosol inhaler (Atrovent HFA) 2 puff inhalation Q8H #12.9 grams 09/26/22 oseltamivir 75 mg capsule 75 mg PO BID 4 days #8 caps 09/26/22 Hospital Course Summary of Care Provided Minutes Spent on Discharge: 20 Hospital Course: DAXA LEE, is a 67 M with a history of CLL, thrombocytopenia, OA who p resented to [facility] 09/25/2022 with worsening shortness of breath since .? He began feeling short of breath and unwell and drastically worsened by the night but did not want to come to the hospital due to the holidays.? He is continue to worsen so he presented today.? In the ED initially on ambulation on room air he was 87%, later they went to ambulate him and sitting in bed on room air he was 87%. Admitted due to his hypoxia secondary to influenza A. Started on nebs and Tamiflu and by the next morning was feeling much better and no longer required oxygen, ambulated and did not require oxygen. Patient still reported shortness of breath but was feeling b kelsey and cough improving, no other complaints. Physical Exam Const alert and no apparent distress Constitutional Narrative: Oriented HEENT normocephalic and head/scalp atraumatic Eyes Eyes Narrative: EOM grossly intact, anicteric Neck supple Resp normal respiratory effort Resp Narrative: Somewhat diminished at the bases Cardio regular rate and regular rhythm GI soft to palpation, non-tender and non-distended Extremity Extremity Narrative: No edema appreciated Neuro moves all extremities Neuro Narrative: No overt focal deficits appreciated Psych Psych Narrative: Cooperative Weight / BMI Weight Weight: 111.2 kg Body Mass Index (BMI) 37.3 ABG / Lab / Microbiology Data Result Diagrams: 09/26/22 06:18 09/26/22 06:18 Laboratory: Laboratory Results - last 24 hr 09/25/22 21:12: Magnesium 2.1 09/26/22 06:18: WBC 5.1, RBC 5.05, Hgb 15.6, Hct 47.0, MCV 93.1, MCH 30.9, MCHC 33.2, RDW Std Deviation 49.8 H, RDW Coeff of Lamberto 14.5, Plt Count 82 L, MPV 9.7, Immature Gran % (Auto) 0.400, Neut % (Auto) 63.7, Lymph % (Auto) 22.5, [place] % (Auto) 13.0 H, Eos % (Auto) 0.0, Baso % (Auto) 0.4, Absolute Neuts (auto) 3.2, Absolute Lymphs (auto) 1.14, Nucleated RBC % 0 09/26/22 06:18: Sodium 137, Potassium 3.8, Chloride 104, Carbon Dioxide 29.0, Anion Gap 4 L, BUN 13, Creatinine 0.75, Estim Creat Clear Calc 67.45, Est GFR (MDRD) Af Amer 133, Est GFR (MDRD) Non-Af 110, BUN/Creatinine Ratio 17.4, Glucose 142 H, Calcium 8.5, Total Bilirubin 0.90, AST 29, ALT 25, Alkaline Phos phatase 59, Total Protein 6.3 L, Albumin 2.7 L, Globulin 3.6, Albumin/Globulin Ratio 0.8 L Microbiology: Microbiology 09/25/22 07:15 Nasal Secretion SARS-CoV-2 & FLU Antigen (Rapid) - Final Influenzae A D/C Instructions Discharge Diet: No restrictions Meaningful Use Info Meaningful Use Diagnoses (Choose all that apply): None applicable Discharge Plan Admission Admit Date/Time: 09/25/22 14:07 Primary Reason for Your Visit: Shortness of breath Attending Provider: Daniella Bolden Primary Care Provider: Ivan Kamara Instructions Patient Instructions: Adult Self-Care for Colds Additional Instructions / Restrictions: *Please take this with you to your next doctors appointment* ?You will be sent home with a prescription for Tamiflu, you will take 1 dose tonight and continue to take this twice a day, your last dose will be on the morning of the . ?Can use the ipratropium inhaler 2 inhalations 3 times a day in addition to the albuterol for the first day followed by 2 inhalations up to 3 times a day as needed for shortness of breath along with the albuterol ?These have been sent to your preferred pharmacy on file ?Continue your other home medications -Please call your primary care provider's office upon discharge to schedule a hospital follow up within 1 week. -For any concerning signs or symptoms please call 911 or proceed to the nearest emergency department Discharge Orders/Prescriptions Prescriptions: New oseltamivir 75 mg Capsule 75 mg PO BID 4 Days Qty: 8 0RF albuterol sulfate [ProAir HFA] 90 mcg/actuation HFA aerosol inhaler 2 inh inhalation Q8H Qty: 6.7 0RF Rx Instructions: Can use the albuterol inhaler 2 inhalations 3 times a day in addition to that ipratropium for the first day followed by 2 inhalations up to 3 times a day as needed for shortness of breath as well as the ipratropium Atrovent HFA 17 mcg/actuation HFA aerosol inhaler 2 puff inhalation Q8H Qty: 12.9 0RF Rx Instructions: Can use the ipratropium inhaler 2 inhalations 3 times a day in addition to the albuterol for the first day followed by 2 inhalations up to 3 times a day as needed for shortness of breath along with the albuterol Continued melatonin 5 mg capsule 5 mg PO QHS PRN PRN (Reason: Insomnia) potassium chloride 10 mEq tablet extended release 10 meq PO DINNER tamsulosin 0.4 mg capsule 0.4 mg PO DINNER metoprolol succinate 25 mg tablet extended release 24 hr 12.5 mg PO QHS glucosamine sulfate [Glucosamine] 500 mg tablet 500 mg PO DINNER Rx Instructions: administer with a meal Promacta 12.5 mg tablet 12.5 mg PO DAILY Rx Instructions: administer on an empty stomach, at least 1 hour before or 2 hours after dexter d/meal(s) acetaminophen 500 MG tablet 500 mg PO PRN PRN (Reason: Pain) furosemide 20 MG tablet 20 mg PO DAILY Label Comments: WATER RETENTION pravastatin 20 mg tablet 20 mg PO DINNER Label Comments: TAKE 1 TABLET BY MOUTH at supper lisinopril 40 mg tablet 40 mg PO DAILY Qty: 90 3RF celecoxib [Celebrex] 200 mg capsule 200 mg PO DAILY Qty: 30 0RF Rx Instructions: Do not take in conjunction with other NSAIDs including ibuprofen. Tylenol is okay. amlodipine 2.5 mg tablet 2.5 mg PO DAILY Qty: 90 3RF Referrals / Follow Up: Ivan Kamara MD [Primary Care Provider] - Within 1 Week Disposition Disposition (needs filled in before D/C Order can be placed): Home, Self Care Charges/Coding Visit Charges OBSV E&M: [id number] Observation care discharge
== END 2022-09-26 14:50 | disposition home or self-care (01) ==
LOC: ED 14:03 → MS3 14:19
PROVIDERS: Family Medicine; Admitting Provider Internal Medicine; Emergency Provider Emergency Medicine; PCP Family Medicine; Visit Provider Internal Medicine
DX: J10.1 Influenza due to other identified influenza virus with other respiratory manifestations (principal); C91.10 Chronic lymphocytic leukemia of B-cell type not having achieved remission; D69.3 Immune thrombocytopenic purpura; I10 Essential (primary) hypertension; R00.0 Tachycardia, unspecified; J91.8 Pleural effusion in other conditions classified elsewhere; F17.290 Nicotine dependence, other tobacco product, uncomplicated; R09.02 Hypoxemia; Z79.899 Other long term (current) drug therapy; M19.90 Unspecified osteoarthritis, unspecified site
CPT/HCPCS: 36415; 36591; 71045; 71250; 80048; 80053; 83735; 84484; 85025; 87428; 93005; 94640; 94667; 94668; 97802; 99218; 99251; 99252; 99285; 99406; A4216; G0378; G0463

== ENCOUNTER 2023-01-30 10:30 | Outpatient (RCR) | payer MEDICARE, OTHER, SELFPAY ==
--- NOTE | 2023-01-01 14:01 | HP.PTEVAL_ITS ---
Patient's Visit Information HUDSON LEE is a 67 year old M referred to Physical Therapy by Dr. Hudson Mejia DO with a diagnosis of OA R HIP. Date of Evaluation: 01/01/23 Physical Therapist: Marimar Pinto, PT, Cert MDT - Visit Plan Frequency: 2-3x /Week Duration: 4-6 Weeks Plan: PATIENT RELUCTANT BUT AGREEABLE TO AQUATIC THERAPY FOR PAIN RELEIF, POSTURE CORRECTION/STRENGTHENING, INSTRUCTION IN APPROPRIATE BODY MECHANICS AND ACTIVITY MODIFICATIONS. DLS STARTING WITH A NEUTRAL SPINE PROGRESSING ROM TOLERATED. MARY ANN LE ROM, STRETCHING AND STRENGTHENING. HEP INSTRUCTION. - Subjective Work/Leisure: RETIRED. LIKES TO [employer] - LAST TIME WAS AUG 2022. HAS PLANS TO GO [employer] AGAIN MARCH 2023 BUT R HIP PAIN IS MAKING IT DIFFICULT/UNSAFE. Present symptoms: R GROIN PAIN. R LATERAL HIP PAIN. SOMETIMES R THIGH PAIN. DENIES LE NUMBNESS AND TINGLING. CHRONIC ACHE R LATERAL HIP AND BUTTOCK AND GROIN AND THING. PAIN CAN BECOME ACUTE/SHARP INSTANTLY AT TIMES. Present since: GRADUAL ONSET X ABOUT 5-8 YEARS. Pain Scale: WORST 10/10 (FLEETING), LEAST 2-3/10. Currently: 2-3/10. Is it getting better, worse or staying the same: WORSENING. Commenced as a result of: ARTHRITIS (A LOT OF DRIVING). Worse: RISING FROM commode. BEING ON FEET. WALKING FOR ANY DISTANCE AT ALL. GOING UP STAIRS. L SDLY. MOWING THE LAWN. Better: CELEBREX, acetaminophen, R SDLY. Disturbed sleep: AT TIMES. Previous history/Previous treatment: R HIP INJECTION ABOUT 5 YEARS AGO - WASN'T EFFECTIVE. NO PT. NO BACK SURGERY. NO HIP SURGERY. Treatment this episode: PATIENT REPORTS DR. ATKINS TOLD HIM HE IS A CANDIDATE FOR R THR. PATIENT REPORTS HE IS AGREEABLE TO THR AND TENTATIVE PLAN IS TO DO SURGERY MID TO LATE MARCH AFTER PART OF FLY [employer] SEASON ENDS. Gait: Bowel or Bladder Dysfunction: NO INCONTINENCE BUT PATIENT REPORTS ENLARGED PROSTATE. Accidents: NO. Unexplained weight loss: NO. Imaging: RESULTS PER DR. ATKINS'S RECENT NOTE: 05/08/2022 x-ray right hip moderate approaching severe joint space narrowing moderate spurring there is subchondral cystic changes in the acetabulum and femoral head. PMH/Recent major surgery: hx from Dr. Atkins's note 12/25/22: Anemia. Arthritis. Cancer. CLL (chronic lymphocytic leukemia). Essential hypertension. GERD (gastroesophageal reflux disease). HTN (hypertension). Irregular heart beat. Kidney stones. LV dysfunction. NSVT (nonsustained ventricular tachycardia). Osteoarthritis of right hip. Osteoporosis. Premature atrial contraction. Sinus bradycardia. Sleep apnea. Smoker. 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 FH. RSH'S. NO RELEVANT LATERAL LUMBAR SHIFT. Active Correction of posture: NE. Other Observations: THIS PATIENT AMBULATES INDEP'LY INTO PT WITHOUT ANY AD'S OR LOB BUT WITH A LIMP ON THE RIGHT LE AND VERY SHORT DECREASED MARY ANN STRIDE LENGTH ALONG WITH DECREASED CADANCE. Sensory deficit: MARY ANN LE LIGHT TOUCH SENSATION IS GROSSLY INTACT AND SYMMETICAL. ROM deficit: SEVERE DECREASED R HIP ROM ALL PLANES AND INCREASED C/O PAIN WITH GENTLE TESTING. PATIENT ALSO HAS MODERATED L HIP ROM DECREASE BUT NO C/O PAIN WITH TESTING. Motor deficit: RIGHT HIP FLEX 3-/5, KNEE 4/5, ANKLE 5/5. LLE: HIP 4-/5, KNEE 5/5, ANKLE 5/5. Lumbar mvmt loss: flex - MOD. ext - BOAZ. R SG - R SG. L SG - BOAZ. PATIENT DENIES ANY SHARP PAIN WITH LUMBAR ROM TESTING ALL PLANES. Core strength: POOR. Palpation: RIGHT LOW BACK AND LATERAL HIP TENDERNESS WITH PALPATION. OTHER: Patient presents to PT questioning if he has to do aquatic therapy. He is expressing concern over the pain and difficulty he will have dressing/undressing for the pool. - Balance/Special Test Scores Lower Extremity Functional Score: 16 - Goals Goal 1:: DECREASE C/O R HIP PAIN Goal Time Frame: 4-6 Weeks Goal 2:: IMPROVE SITTING, STANDING, WALKING AND ADL FUNCTION FUNCTION Goal Time Frame: 4-6 Weeks Goal 3:: INSTRUCT IN PROPHYLAXIS Goal Time Frame: 4-6 Weeks - Anticipated Interventions Patient/Client Instruction: Educate patient on: Condition, Plan of Care, Risk Factors For the Purpose of:: To improve self management Therapeutic Exercise to Include: Strength training, Body mechanics, Postural training, Flexibilty training, Gait and locomotor training, Neuromotor develo pment, In an aquatic setting, Dynamic Lumbar Stabilization For the Purpose of:: To decrease pain, To increase ROM, To improve muscle performance and motor function, To increase tolerance to activity/condition/position, To improve ability of physical actions for home/community/work/leisure, To improve gait and locomotor functions Thank you for the opportunity to evaluate your patient. For Medicare and Medicare HMO plans, please review the plan of care and approve it. It will need to be FAXED BACK to us at [phone] for Medicare purposes. For Medicare only, by signing this I certify the plan of care. Please let me know if there are questions or concerns regarding this plan of care. Physician Signature: Date:
--- NOTE | 2023-01-30 11:05 | HP.PTDCSUM ---
It has been my pleasure to treat HUDSON LEE referred by Dr. Hudson Mejia DO, with the diagnosis of OA R HIP for a total of 10 visit(s). Discharge Date: 01/30/23 Please see the following information for a summary of their discharge status. Subjective: PATIENT REPROTS HIS STAMINA WHEN WALKING HAS IMPROVED SINCE STARTING THERAPY. STATES IT IS STILL PAINFUL GETTING IN AND OUT OF THE CAR AND WALKING MORE THAN 150 FEET. ALSO REPORTS SHARP HIP PAIN GETTIN G OFF commode. PATIENT REPORTS HAVING LESS PAIN WITH ACTIVITIES ALLOWING HIM TO DO MORE THAN HE COULD BEFORE STARTING PT. STILL PLANNING TO CONSIDER THR MID TO LATE MARCH. PATIENT REPORTS TRYING HIS HOME EX'S AND THEY ARE GOING OK. HE REPORTS HE IS PUSH MOWING AND DOING STEPS AT HOME TOO. PATIENT REPORTS HE DOESN'T SEE THE BENEFIT ON TRYING MORE PT ON LAND OR IN THE WATER AT THIS POINT. STATES HE WOULD LIKE TO CONTINUE WITH HIS HOME EX'S AT THIS POINT. HE STATES DOING POOL EX'S DO NOT SEEM PRACTICAL TO HIM AT THIS TIME. PATIENT REPORTS HE IS COMMITTED TO DOING THE HOME EX'S WE HAVE GIVEN HIM. BLE Pain Intensity (Out of 10): 3 % Improvement: 20 Objective/Function: PATIENT WAS SEEN TODAY FOR RE-ASSESSMENT OF PROGRESS TOWARD THE SET PT GOALS AND THE NEED FOR FURTHER PHYSICAL THERAPY VS READINESS FOR DISCHARGE. PATIENT HAS A HEP AND WOULD LIKE TO TRY TO CONTINUE ON HIS OWN AT THIS POINT. UPON EXAM TODAY: THIS PATIENT AMBULATES INDEP'LY INTO PT WITHOUT ANY AD'S OR LOB BUT WITH A MILD LIMP ON THE RIGHT LE AND DECREASED MARY ANN STRIDE LENGTH ALONG WITH DECREASED CADANCE. Sensory deficit: MARY ANN LE LIGHT TOUCH SENSATION IS GROSSLY INTACT AND SYMMETICAL. Motor deficit: RIGHT HIP FLEX 3+/5, KNEE 4/5, ANKLE 5/5. LLE: HIP 4+/5, KNEE 5/5, ANKLE 5/5. Lumbar mvmt loss: flex - MOD. ext - BOAZ. R SG - MOD. L SG - MOD. PATIENT DENIES PAIN WITH LUMBAR ROM TESTING TODAY. Core strength: POOR. Palpation: C/O MILD RIGHT LOW BACK AND LATERAL HIP TENDERNESS WITH PALPATION. Goal 1:: DECREASE C/O R HIP PAIN Goal Progress: Progressing Goal 2:: IMPROVE SITTING, STANDING, WALKING AND ADL FUNCTION FUNCTION Goal Progress: Progressing Goal 3:: INSTRUCT IN PROPHYLAXIS Goal Progress: Progressing Plan: D/C TO HEP. If there are questions or concerns regarding this patient's physical therapy, please feel free to call me at [phone]. Thank you for the referral of this patient. Sincerely, Marimar Pinto PT, Cert MDT Balance/Gait/Functional tests - Balance/Special Test Scores Lower Extremity Functional Score: 29
== END 2023-01-30 19:00 | disposition home or self-care (01) ==
LOC: PT 10:30
PROVIDERS: PCP Family Medicine; Referring Provider Orthopaedic Surgery; Visit Provider Orthopaedic Surgery
DX: M16.11 Unilateral primary osteoarthritis, right hip (principal)
CPT/HCPCS: 97113; 97162; 97164

== ENCOUNTER 2023-03-22 15:23 | Emergency (ER) | payer MEDICARE, OTHER, SELFPAY ==
[2023-03-22] VITALS (12 sets, daily range): BP systolic 114–161; BP diastolic 57–74; PULSE 46–58; RESP 13–19; TEMP 36.6; O2SAT 94–100; BMI 33.2; BMI 34.2
--- NOTE | 2023-03-22 15:26 | ED.RN ---
Dr. Shah notified of pt s/s that have resolved since arriving to ED. NNO.
--- NOTE | 2023-03-22 15:29 | EDS_ITS ---
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, immune Home Medications acetaminophen 500 mg tablet 500 mg PO PRN PRN Pain 02/21/17 [History Last Taken Unknown] furosemide 20 mg tablet 20 mg PO DAILY 06/18/17 [History Last Taken Unknown] melatonin 5 mg capsule 5 mg PO QHS PRN PRN Insomnia 01/20/19 [History Last Taken Unknown] potassium chloride 10 mEq tablet,extended release 10 meq PO DINNER 04/08/20 [History Last Taken Unknown] tamsulosin 0.4 mg capsule 0.4 mg PO DINNER 12/20/20 [History Last Taken Unknown] lisinopril 40 mg tablet 40 mg PO DAILY #90 tabs 06/21/21 [Rx Last Taken Unknown] celecoxib 200 mg capsule (Celebrex) 200 mg PO DAILY #30 caps 06/06/22 [Rx Last Taken Unknown] amlodipine 2.5 mg tablet 2.5 mg PO DAILY #90 tabs 09/04/22 [Rx Last Taken Unknown] eltrombopag 12.5 mg tablet (Promacta) 12.5 mg PO DAILY 09/19/22 [History Last Taken Unknown] glucosamine sulfate 500 mg tablet (Glucosamine) 500 mg PO DINNER 09/19/22 [History Last Taken Unknown] metoprolol succinate 25 mg tablet,extended release 24 hr 12.5 mg PO QHS 09/19/22 [History Last Taken Unknown] pravastatin 20 mg tablet 20 mg PO DINNER 09/25/22 [History Last Taken Unknown] albuterol sulfate 90 mcg/actuation aerosol inhaler (ProAir HFA) 2 inh inhalation Q8H shortness of breath or wheezing #6.7 grams 09/26/22 [Rx Last Taken Unknown] ipratropium bromide 17 mcg/actuation HFA aerosol inhaler (Atrovent HFA) 2 puff inhalation Q8H #12.9 grams 09/26/22 [Rx Last Taken Unknown] oseltamivir 75 mg capsule 75 mg PO BID 4 days #8 caps 09/26/22 [Rx Last Taken Unknown] Allergy/AdvReac Type Severity Reaction Status Date / Time Penicillins [PCN] Allergy Unknown Verified 03/22/23 15:28 Family History Sister CAD (coronary artery disease) CHF (congestive heart failure) Presence of stent in coronary artery Brother Thoracic aortic aneurysm Cancer Prostate Brother Diabetes Cancer Bladder Surgical History History of appendectomy History of tonsillectomy Social History Smoking Status: Current some day smoker tobacco type: pipe alcohol intake: current details: minimal substance use type: does not use caffeine: Yes eating out: other details: 2 cups daily EXAM Physical Exam Const Vital Signs: 03/22/23 15:25 03/22/23 15:30 03/22/23 15:34 Temperature 97.9 F Temperature Source Temporal Pulse Rate 57 L 53 L Respiratory Rate 16 15 Blood Pressure 118/69 Blood Pressure Mean 85 Pulse Ox 100 Oxygen Delivery Method Room Air Room Air Room Air 03/22/23 15:35 03/22/23 15:45 03/22/23 16:15 Temperature Temperature Source Pulse Rate 55 L 53 L 49 L Respiratory Rate 15 16 13 Blood Pressure 155/72 H 161/57 H 114/58 L Blood Pressure Mean 99 91 76 Pulse Ox 94 98 94 Oxygen Delivery Method Room Air Room Air Room Air 03/22/23 17:08 03/22/23 18:00 03/22/23 19:00 Temperature Temperature Source Pulse Rate 51 L 54 L 49 L Respiratory Rate 19 H 17 16 Blood Pressure 124/61 H 117/57 L 119/74 Blood Pressure Mean 82 77 89 Pulse Ox 98 99 98 Oxygen Delivery Method Room Air Room Air Room Air 03/22/23 20:00 03/22/23 21:00 03/22/23 22:49 Temperature Temperature Source Pulse Rate 46 L 57 L 49 L Respiratory Rate 15 16 16 Blood Pressure 117/57 L 122/64 H 119/74 Blood Pressure Mean 77 83 89 Pulse Ox 100 98 Oxygen Delivery Method Room Air Room Air Room Air 03/22/23 23:12 Temperature Temperature Source Pulse Rate 58 L Respiratory Rate 16 Blood Pressure 115/60 Blood Pressure Mean Pulse Ox 97 Oxygen Delivery Method MDM MDM MDM Narrative Medical decision making narrative: HISTORY OF PRESENT ILLNESS: 68-year-old male here with transient aphasia. This occurred around 3 PM and resolved. States he feels normal now. Denies focal weakness, loss of vision, slurred speech, incoordination. REVIEW OF SYSTEMS: Pertinent positives: Aphasia Pertinent negatives: Focal loss of sensation, neuro PHYSICAL EXAM: Nursing triage notes reviewed, Vital signs reviewed Constitutional: please see the [facility] HENT: MMM Eyes: Pupils equal round and reactive to light, Extraocular muscles intact Neck: No stridor, no JVD, full neck ROM Lungs: Clear to auscultation, No wheezing or rales. No increased work of breathing, no conversational dyspnea, no accessory muscle use, no nasal flaring. No respiratory distress noted Heart: Regular rate and rhythm, No murmurs, No rubs and No gallops, 2+ distal pulses (radial, femoral, posterior tibial) in all extremities Abdomen: Soft, there is no tenderness, rigidity, rebound or guarding, no obvious peritoneal signs, no palpable pulsatile abdominal masses, no auscultated abdominal bruit : No CVAT Extremities: No edema Neuro: Alert and oriented x3, neuro exam at baseline, cranial nerves II through XII are intact. No pain with extraocular muscle movement. There is negative test of skew. Normal speech. 5 of 5 strength in upper and lower extremities in flexion extension. Intact sensation to light touch in upper and lower extremity dermatomes. No truncal or extremity ataxia. No dysdiadochokinesia. Normal gait. 2+ reflexes. No meningeal signs. Negative Babinski. NIH of 0 Skin: No rash or lesions noted MEDICAL DECISION MAKING: Chief Complaint: Transient aphasia External records reviewed: No recent advanced imaging of the brain Factors affecting care: none CLL, CHF, thrombocytopenia, anemia Social determinants of health: Elderly History obtained from others: The patient's Consults: Internal medicine ALL IMAGES (IF OBTAINED) HAVE BEEN PERSONALLY REVIEWED AND INTERPRETED BY MYSELF. [facility] Narrative: Patient was hemodynamically stable, afebrile, nontoxic-appearing. Initial neurologic exam and no focal deficits, no aphasia. NIH of 0. The patient is not a thrombolytic or thrombectomy candidate. Initial CT was negative for bleed or mass. I offered the patient admission for risk factor modification and MRI. Patient refused admission at this time. He was alert and orient x3. He had capacity make his own medical decisions. The presence of his he refused admission for risk factor modification possible neurology consultation. He agreed to stay for MRI. I did call our MRI department able to arrange a stat MRI for further evaluation. MRI showed no evidence of acute ischemic event. Patient was again offered risk factor modification as per consensus stroke guidelines however he refused. Shared decision-making discussion was again had with him and his . They both refused admission at this time. They capacity to make this decision once again. Patient was discharged with instructions to follow with his primary care physician for outpatient risk factor modification. AMA note: I have recommended admission to the hospital, but the patient refuses. The risks (including but not limited to suffering and ) as well as the benefits were explained to the patient. Questions were sought and answered, the patient voiced understanding and accepts these risks. I have encouraged the patient to return to have their evaluation completed as we are glad to do so. Patient had capacity to make his or her own medical decisions. Patient was alert and orient x3 and of sound mind at time of discussion. I have also instructed the patient on the importance of follow-up and to return for any worsening or worrisome concerns. The patient appears competent to make medical decisions at this time. The patient and/or family, caregivers express understanding. The patient and/or family, caregivers agrees with the plan. Total critical care time today provided was at least 0 minutes. This excludes separately billable procedures. Critical care time (if documented) is secondary to the patient having high probability of clinically significant/life threatening deterioration in the patient's condition which required my urgent intervention. Shared decision making: I will have a discussion with the patient and or visitors regarding risk/benefits of further testing or admission. They will be made aware of of the risk/benefits inherent in this decision they will be given the opportunity to voice understanding. Lab Data Attestation: I reviewed the patient's lab results. Lab results narrative: CBC without leukocytosis, severe anemia, no thrombocytopenia. No obvious coagulopathy Troponin is negative, no evidence of myocardial ischemia BMP without evidence of significant electrolyte abnormalities, no anion gap, no acute kidney injury. EKG with sinus bradycardia, left axis deviation, normal intervals, no STEMI Labs: Laboratory Results - last 24 hr 03/22/23 03/22/23 03/22/23 15:31 15:31 15:40 WBC 5.1 RBC 4.08 L Hgb 13.5 Hct 38.4 L MCV 94.1 H MCH 33.1 H MCHC 35.2 RDW Std Deviation 52.8 H RDW Coeff of Lamberto 15.1 H Plt Count 112 L MPV 9.2 Immature Gran % (Auto) 0.200 Neut % (Auto) 40.8 L Lymph % (Auto) 45.8 H Snyder % (Auto) 11.2 H Eos % (Auto) 1.4 Baso % (Auto) 0.6 Absolute Neuts (auto) 2.1 Absolute Lymphs (auto) 2.34 Nucleated RBC % 0 PT 13.5 INR 1.0 APTT 38.5 H Sodium 137 Potassium 4.3 Chloride 107 Carbon Dioxide 24.0 Anion Gap 6 BUN 14 Creatinine 0.99 Estim Creat Clear Calc 64.91 Est GFR (MDRD) Af Amer 96 Est GFR (MDRD) Non-Af 79 BUN/Creatinine Ratio 14.1 Glucose 122 H Calcium 9.4 Troponin I High Sens 9 Radiography Diagnostic Testing: Clinical Impression(s) from Imaging Studies Brain CT 03/22/23 15:31 IMPRESSION: Negative Brain CT without contrast. Electronically Signed: Paramjit Blanton DO at 16:29 EDT , ADDENDUM: 03/22/23 1643 IMPRESSION: Negative Brain CT without contrast. N.B. : The above Results were Read Back by Paramjit Blanton DO to Miko Shah DO, and understanding confirmed on 03/22/2023 16:36:25 (ET). Electronically Signed: Paramjit Blanton DO at 16:29 EDT , ADDENDUM: 03/22/23 1646 IMPRESSION: Negative Brain CT without contrast. N.B. : The above Results were Read Back by Paramjit Blanton DO to Miko Shah DO, and understanding confirmed on 03/22/2023 16:39:36 (ET). Electronically Signed: Paramjit Blanton, at 16:29 EDT , Chest X-Ray 03/22/23 15:45 IMPRESSION: No radiographic evidence of acute cardiopulmonary disease. Electronically Signed: Paramijt BlantonDO at 16:52 EDT , Brain MRI 03/22/23 15:49 IMPRESSION: No acute ischemia or other acute intracranial pathology. Chronic small vessel ischemic changes. Electronically Signed: Ollie Jen, at 20:38 EDT , I have personally reviewed the patient's chest x-ray. Chest x-ray is unremarkable for pulmonary edema, pneumothorax, pneumonia or focal cardiopulmonary abnormality. Discharge Plan Triage Chief Complaint: Neuro S/Sx ED Provider: Miko Shah Dx/Rx/DC Orders Clinical Impression: Brain TIA Instructions: TIA Dc Prescriptions: No Action melatonin 5 mg capsule 5 mg PO QHS PRN PRN (Reason: Insomnia) potassium chloride 10 mEq tablet extended release 10 meq PO DINNER tamsulosin 0.4 mg capsule 0.4 mg PO DINNER metoprolol succinate 25 mg tablet extended release 24 hr 12.5 mg PO QHS glucosamine sulfate [Glucosamine] 500 mg tablet 500 mg PO DINNER Rx Instructions: administer with a meal Promacta 12.5 mg tablet 12.5 mg PO DAILY Rx Instructions: administer on an empty stomach, at least 1 hour before or 2 hours after food/meal(s) acetaminophen 500 MG tablet 500 mg PO PRN PRN (Reason: Pain) furosemide 20 MG tablet 20 mg PO DAILY Label Comments: WATER RETENTION pravastatin 20 mg tablet 20 mg PO DINNER Label Comments: TAKE 1 TABLET BY MOUTH at supper oseltamivir 75 mg Capsule 75 mg PO BID 4 Days Qty: 8 0RF albuterol sulfate [ProAir HFA] 90 mcg/actuation HFA aerosol inhaler 2 inh inhalation Q8H Qty: 6.7 0RF Rx Instructions: Can use the albuterol inhaler 2 inhalations 3 times a day in addition to that ipratropium for the first day followed by 2 inhalations up to 3 times a day as needed for shortness of breath as well as the ipratropium Atrovent HFA 17 mcg/actuation HFA aerosol inhaler 2 puff inhalation Q8H Qty: 12.9 0RF Rx Instructions: Can use the ipratropium inhaler 2 inhalations 3 times a day in addition to the albuterol for the first day followed by 2 inhalations up to 3 times a day as needed for shortness of breath along with the albuterol lisinopril 40 mg tablet 40 mg PO DAILY Qty: 90 3RF celecoxib [Celebrex] 200 mg capsule 200 mg PO DAILY Qty: 30 0RF Rx Instructions: Do not take in conjunction with other NSAIDs including ibuprofen. Tylenol is okay. amlodipine 2.5 mg tablet 2.5 mg PO DAILY Qty: 90 3RF Primary Care Provider: Ivan Kamara Referrals: Ivan Kamara MD [Primary Care Provider] - Activity Restrictions/Additional Instructions: Thank you for trusting us with your care today! Please take Tylenol (2 pills, 650 mg) every 6 hours as needed for pain and fever control. Please return to the emergency department if your symptoms change or worsen. Please follow with your primary care physician for further outpatient evaluation and management. Specifically for risk factor modification this includes checking your cholesterol levels, blood pressure and checking for diabetes. Disposition Disposition: Home, Self Care Discharge Date/Time: 03/22/23 23:13
--- NOTE | 2023-03-22 15:31 | CT_ITS ---
We are attempting to reach an attending provider to discuss findings. An addendum with communication details will be sent when the communication is complete. INDICATION: Neuro deficit, acute, stroke suspected EXAMINATION: CT BRAIN - CT Head Stroke Protocol W/O Contrast Injection TECHNIQUE: Multiple axial images were obtained of the head without intravenous contrast. A radiation dose optimization technique was used for this scan. IV Contrast dosage and agent: None. COMPARISON: FINDINGS: BRAIN PARENCHYMA: No intra- or extra-axial hemorrhage. No evidence of acute infarct. No intracranial mass or mass effect. There is preservation of the mckeon/white matter interface. Posterior fossa structures are unremarkable. CSF SPACES: Appropriate for age. No hydrocephalus. Basal cisterns are patent. CALVARIUM, SKULL BASE, PARANASAL SINUSES AND MASTOID AIR CELLS: Clear. No discrete lytic or blastic abnormalities. ORBITS: Both globes, extraocular muscles, optic nerves and retrobulbar fat appear unremarkable. ASPECTS Score for Acute Strokes: 10 CT/STROKE Brain/Head without Cont IMPRESSION: Negative Brain CT without contrast. Electronically Signed: Paramjit Blanton DO at 16:29 EDT ,
--- NOTE | 2023-03-22 15:45 | RAD_ITS ---
INDICATION: Neuro deficit, acute, stroke suspected EXAMINATION/TECHNIQUE: X-RAY - XR Chest 1 View COMPARISON: September 25, 2022 FINDINGS: LINES/DEVICES: Stable left-sided venous port.. LUNGS: No consolidation, edema or effusion. No pneumothorax. MEDIASTINUM AND CARDIOVASCULAR STRUCTURES: Cardiac silhouette not enlarged. Central airways and mediastinal contour are unremarkable. BONES AND SOFT TISSUES: Degenerative vertebral changes. RAD/Chest 1 View IMPRESSION: No radiographic evidence of acute cardiopulmonary disease. Electronically Signed: Paramjit Blanton DO at 16:52 EDT ,
--- NOTE | 2023-03-22 15:49 | MRI_ITS ---
STUDY: MRI BRAIN WITHOUT CONTRAST REASON FOR EXAM: Male, 68 years old. transient aphasia TECHNIQUE: Standardized multiplanar fat and water weighted pulse sequences were obtained. COMPARISON: CT brain March 22, 2023 FINDINGS: Normal size of the ventricles and extra-axial spaces for the patient''s age. Normal white matter tracts of the supratentorial brain. There is no evidence for recent intracranial ischemia or other cause of cytotoxic edema on diffusion weighted imaging (DWI). Normal T2* images of the brain without demonstrated susceptibility artifact. There is no demonstrated hemosiderin stain. Numerous, noncompliant, subcentimeter foci of increased T2 and FLAIR signal seen in the bilateral periventricular and subcortical white matter of the frontal lobes most commonly representing chronic small vessel ischemic changes. Normal bilateral basal ganglia. Normal thalami. There is no extra-axial fluid accumulation. Normal flow voids within the major intracranial circulation suggesting patency by spin echo criteria. Normal sella turcica, pituitary gland, infundibular stalk, optic chiasm and hypothalamus. Normal tectal plate and pineal gland. Normal midbrain, melanie and medulla. Normal cerebellum. Normal basal cisterns. Normal aeration mastoid air cells and middle ears. Normal bilateral internal auditory canals. Normal visualized paranasal sinuses. Normal calvarium and skull base. Moderate degenerative changes atlantoaxial articulation with somewhat erosive appearance of the dens. Less likely, inflammatory process could potentially have similar appearance. MRI/Brain without Contrast IMPRESSION: No acute ischemia or other acute intracranial pathology. Chronic small vessel ischemic changes. Electronically Signed: Ollie Li DO at 20:38 EDT ,
[2023-03-22 15:57] LABS: Absolute Lymphocyte Count 2.34 X10^3/uL (0.83-4.51); Absolute Neutrophil Count 2.1 X10^3/uL (2.0-7.7); Basophil# 0.03 X10^3/uL; Basophil% 0.6 % (0-1); Eosinophil# 0.07 X10^3/uL; Eosinophils% 1.4 % (0-5); Hematocrit 38.4 % (40-54); Hemoglobin 13.5 g/dL (13.0-16.5); Lymphocyte # 2.34 X10^3/ul (0.83-4.51); Lymphocyte % 45.8 % (19-41); Mean Corp Hgb Conc 35.2 g/dL (32-36); Mean Corpuscular Hgb 33.1 pg (27.0-32.0); Mean Corpuscular Volume 94.1 fL (80-94); Mean Platelet Vol. 9.2 fl (6.2-12.0); Monocyte# 0.57 X10^3/uL; Monocyte% 11.2 % (0-10); NRBC Flagged by Analyzer 0 % (0-5); Neutrophil # 2.09 X10^3/uL (2.7-7.7); Neutrophil % 40.8 % (47-70); Platelet Count 112 K/mm3 (150-450); RBC Distribution Width CV 15.1 % (11.6-14.6); RBC Distribution Width SD 52.8 fl (35.1-43.9); Red Blood Count 4.08 M/mm3 (4.6-6.2); White Blood Count 5.1 K/mm3 (4.4-11.0)
--- NOTE | 2023-03-22 16:20 | ED.RN ---
NIHSS DISCONTIMUED BY SHILPA CH AT [id number]
[2023-03-22 16:21] LABS: Prothrombin Time (Protime)PT. 13.5 SECONDS (11.7-14.9)
[2023-03-22 16:22] LABS: Partial Thromboplast Time 38.5 Seconds (24.1-36.2)
[2023-03-22 16:31] LABS: Anion Gap 6 (5-15); BUN 14 mg/dL (7-18); BUN/Creat Ratio 14.1 RATIO (10-20); Calcium,Total 9.4 mg/dL (8.5-10.1); Chloride 107 mmol/L (98-107); Creatinine, Serum 0.99 mg/dL (0.70-1.30); EST Glomerular Filtration Rate 79 mL/min (>60); Est Glom Filt Rate - Afr Amer 96 mL/min (>60); Estimated Creatinine Clearance 64.91 ml/min; Glucose 122 mg/dL (74-106); Potassium 4.3 mmol/L (3.5-5.1); Sodium Level 137 mmol/L (136-145); Troponin-I HS 9 pg/mL (3.0-78.0)
[2023-03-22] MEDS: Aspirin 81 MG TAB.CHEW PO (23:03)
== END 2023-03-22 23:13 | disposition home or self-care (01) ==
PROVIDERS: Emergency Provider Emergency Medicine; PCP Family Medicine; Visit Provider Emergency Medicine
DX: G45.9 Transient cerebral ischemic attack, unspecified (principal); R47.01 Aphasia; F17.290 Nicotine dependence, other tobacco product, uncomplicated; G47.30 Sleep apnea, unspecified
CPT/HCPCS: 70450; 70551; 71045; 80048; 84484; 85025; 85610; 85730; 93005; 99285; A4216

== ENCOUNTER → 2023-03-23 | Outpatient (CLI) | payer MEDICARE, OTHER, SELFPAY ==
[2023-03-23 15:51] LABS: ALB/GLOB Ratio 1.3 RATIO (0.9-2.4); AST(SGOT) 11 U/L (15-37); Alanine Aminotransfer ALT/SGPT 19 U/L (16-61); Albumin, Serum 3.7 g/dL (3.2-5.0); Alkaline Phosphatase 66 U/L (45-117); Anion Gap 6 (5-15); BUN 11 mg/dL (7-18); BUN/Creat Ratio 11.5 RATIO (10-20); Calcium,Total 9.4 mg/dL (8.5-10.1); Chloride 109 mmol/L (98-107); Cholesterol 132 mg/dL (200); Creatinine, Serum 0.95 mg/dL (0.70-1.30); EST Glomerular Filtration Rate 83 mL/min (>60); Est Glom Filt Rate - Afr Amer 100 mL/min (>60); Globulin 2.9 g/dL (2.2-4.2); Glucose 92 mg/dL (74-106); High Density Lipoprotein 46 mg/dL; Potassium 5.5 mmol/L (3.5-5.1); Protein, Total 6.6 g/dL (6.4-8.2); Sodium Level 140 mmol/L (136-145)
[2023-03-25 08:08] LABS: LDL, Direct 120295 78 mg/dL (0-99)
== END | disposition home or self-care (01) ==
LOC: MFPLAB 11:56
PROVIDERS: PCP Family Medicine; Visit Provider Family Medicine
DX: E78.00 Pure hypercholesterolemia, unspecified (principal); I10 Essential (primary) hypertension
CPT/HCPCS: 36415; 80053; 82465; 83718; 83721

== ENCOUNTER → 2023-04-10 | Outpatient (CLI) | payer MEDICARE, OTHER, SELFPAY ==
[2023-04-10 17:50] LABS: ALB/GLOB Ratio 1.1 RATIO (0.9-2.4); AST(SGOT) 11 U/L (15-37); Alanine Aminotransfer ALT/SGPT 18 U/L (16-61); Albumin, Serum 3.2 g/dL (3.2-5.0); Alkaline Phosphatase 61 U/L (45-117); Anion Gap 3 (5-15); BUN 12 mg/dL (7-18); BUN/Creat Ratio 14.4 RATIO (10-20); Calcium,Total 8.7 mg/dL (8.5-10.1); Chloride 111 mmol/L (98-107); Creatinine, Serum 0.84 mg/dL (0.70-1.30); EST Glomerular Filtration Rate 97 mL/min (>60); Est Glom Filt Rate - Afr Amer 117 mL/min (>60); Globulin 2.8 g/dL (2.2-4.2); Glucose 83 mg/dL (74-106); Magnesium 2.1 mg/dL (1.6-2.6); Potassium 3.9 mmol/L (3.5-5.1); Sodium Level 139 mmol/L (136-145)
== END | disposition home or self-care (01) ==
LOC: MFPLAB 14:42
PROVIDERS: PCP Family Medicine; Visit Provider Family Medicine
DX: R55 Syncope and collapse (principal)
CPT/HCPCS: 36415; 80053; 83735

== ENCOUNTER → 2023-04-11 | Outpatient (CLI) | payer MEDICARE, OTHER, SELFPAY ==
--- NOTE | 2023-04-11 13:02 | CT_ITS ---
CT RIGHT LOWER EXTREMITY WITH 3-D IMAGING CLINICAL INDICATION: Templating for right PABLO. TECHNIQUE: Axial, sagittal and coronal images of the pelvis and both hips and coronal images of both knees were obtained. RADIATION DOSAGE (If Supplied By Facility): CTDIvol = ( 13.94 ) mGy, DLP = ( 982.51 ) mGycm COMPARISON: FINDINGS: Bones: Osteopenia with moderate arthrosis of both hips, right greater than left. Moderate arthrosis of both medial compartments of the knee. Mild arthrosis of both lateral compartments of the knee. Incidentally noted is moderate lower lumbosacral spondylosis. Soft Tissues: Phleboliths. No radiopaque foreign bodies. . CT/Extremity Lower without Contra IMPRESSION: CT evaluation of the lower extremity without evidence of fracture, dislocation, or significant soft tissue abnormality. Electronically Signed: Geovany Wray MD at 13:34 EDT ,
== END | disposition home or self-care (01) ==
LOC: CT 12:52
PROVIDERS: PCP Family Medicine; Referring Provider Orthopaedic Surgery; Visit Provider Orthopaedic Surgery
DX: M16.11 Unilateral primary osteoarthritis, right hip (principal)
CPT/HCPCS: 73700

== ENCOUNTER 2023-05-01 11:05 | Inpatient (IN) | payer MEDICARE, OTHER, SELFPAY ==
[2023-04-19 10:57] LABS: Absolute Lymphocyte Count 1.96 X10^3/uL (0.83-4.51); Absolute Neutrophil Count 1.6 X10^3/uL (2.0-7.7); Basophil# 0.02 X10^3/uL; Basophil% 0.5 % (0-1); Eosinophil# 0.05 X10^3/uL; Eosinophils% 1.2 % (0-5); Hematocrit 39.4 % (40-54); Hemoglobin 13.1 g/dL (13.0-16.5); Lymphocyte # 1.96 X10^3/ul (0.83-4.51); Lymphocyte % 48.8 % (19-41); Mean Corp Hgb Conc 33.2 g/dL (32-36); Mean Corpuscular Hgb 33.2 pg (27.0-32.0); Mean Corpuscular Volume 99.7 fL (80-94); Mean Platelet Vol. 9.4 fl (6.2-12.0); Monocyte# 0.41 X10^3/uL; Monocyte% 10.2 % (0-10); NRBC Flagged by Analyzer 0 % (0-5); Neutrophil # 1.57 X10^3/uL (2.7-7.7); Neutrophil % 39.1 % (47-70); Platelet Count 102 K/mm3 (150-450); RBC Distribution Width CV 16.2 % (11.6-14.6); RBC Distribution Width SD 59.9 fl (35.1-43.9); Red Blood Count 3.95 M/mm3 (4.6-6.2)
[2023-04-19 11:26] LABS: ALB/GLOB Ratio 1.3 RATIO (0.9-2.4); AST(SGOT) 13 U/L (15-37); Alanine Aminotransfer ALT/SGPT 23 U/L (16-61); Albumin, Serum 3.5 g/dL (3.2-5.0); Alkaline Phosphatase 68 U/L (45-117); Anion Gap 3 (5-15); BUN 11 mg/dL (7-18); BUN/Creat Ratio 12.6 RATIO (10-20); Calcium,Total 8.9 mg/dL (8.5-10.1); Chloride 109 mmol/L (98-107); Creatinine, Serum 0.87 mg/dL (0.70-1.30); EST Glomerular Filtration Rate 92 mL/min (>60); Est Glom Filt Rate - Afr Amer 111 mL/min (>60); Globulin 2.7 g/dL (2.2-4.2); Glucose 97 mg/dL (74-106); Potassium 4.2 mmol/L (3.5-5.1); Protein, Total 6.2 g/dL (6.4-8.2); Sodium Level 139 mmol/L (136-145)
[2023-04-20 04:07] LABS: Fructosamine 194 umol/L (0-285)
[2023-05-01] VITALS (11 sets, daily range): BP systolic 82–135; BP diastolic 50–82; PULSE 56–88; RESP 16–22; TEMP 36.4–37.2; O2SAT 93–100; BMI 31.8
--- NOTE | 2023-05-01 | IMM_PTH ---
PATIENT: HUDSON LEE LOC: MS3 U#:[id number] AGE/SX: 68/M ROOM: OK318 RE05/01/[address]: Dr. Hudson Mejia DO : 1955 BED: 1 DIS: 05/02/2023 SPEC #: [id number] RECD: 05/07/23 13:29 STATUS: ANITA REQ #: [id number] ALFONSO: 05/01/23 00:[address]: Hudson Mejia DEPT: IMMUNOHISTOCHEMISTRY RECD BY: Brooke Neville ENTERED: 05/07/23 13:31 SP TYPE: IMMUNO OTHR DR: DO Dr. Ivan Pretty MD Dr. Nicholas F Kotsonis, MD Tissues: Hip, NOS Procedures: BCL-2 (add) BCL-6 (add) CD10 (add) CD20 (add) CD23 (add) CD3 (add) CD30 (add) CD43 (add) CD45 (add) CD5 (add) CD79A (add) CK8 (add) CYCLIN (add) KI-67 (add) MUM1 (add) C-MYC (add) Pankeratin (initial) PHYSICIAN & [place] [id number] SPECIMEN INFORMATION: Tissue Source: Right femoral head Clinical Info: Osteoarthritis of right hip Specimen Number: [id number] #2 CPT code: 73238, 93826 x16 METHODOLOGY: Deparaffinized sections of prefer/formalin-fixed tissue or PAP/DQ stained slides are incubated with monoclonal/polyclonal antibodies/oligonucleotide probes. Localization is made via biotin free immunoperoxidase method. Appropriate controls are performed and reacted as expected. Results on target cell population are indicated in the following table: RESULTS: ANTIBODY / CLONE RESULT Block 2 AE1-3 (AE1/AE3/PCK26) negative CK8 ([id number]) negative CD3 (PS1) negative CD5 (SP10) positive CD10 (56C6) negative CD20 (L26) positive, focal and weak CD23 (1B12) positive, weak CD30 (Toan-H2) negative CD43 (L60) positive CD45 (RP2/18) positive CD79a (11E3) positive BCL-2 (bcl-2/100/D5) positive, weak, focal BCL-6 (FQ036F/A8) negative Cyclin D1/BCL-1 (SP4) negative MUM1 (MRQ-43) negative C-MYC (Y69) negative Ki-67 (30-9) positive, <1% These tests were developed and their performance characteristics determined by [facility]. They may not have been cleared or approved by the U.S. Food and Drug Administration. The FDA has determined that such clearance or approval is not necessary. The above immunohistochemical/dualISH markers are ordered and reviewed by the Pathologist. 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 SJ:shamar 05/08/2023 Case has been reviewed in consultation with Dr. Reid who concurs with the above diagnosis. IDC:AM
[2023-05-01] MEDS: Scopolamine 1mg/72hr Patch 1 PATCH TD (10:45)
[2023-05-01] MEDS: Lactated Ringers 1,000 ML 15 ML IV (11:30)
[2023-05-01 11:54] LABS: Bedside Glucose 90 mg/dL (74-106)
[2023-05-01 12:02] LABS: Platelet Count 91 K/mm3 (150-450)
[2023-05-01] MEDS: Lactated Ringers 1,000 ML 999 ML IV (12:16)
[2023-05-01] MEDS: Gabapentin 600 MG Tablet PO (12:17)
[2023-05-01] MEDS: Magnesium 1 GM over 15 mins IV (12:17)
[2023-05-01] MEDS: Acetaminophen 500 MG Tablet 1000 MG PO ×2 (12:18→23:59)
--- NOTE | 2023-05-01 12:34 | PCM.HP.BLA ---
History and Physical Date of Admission: 05/01/23 [facility] [address] [place] [address] OFFICE VISIT Date of Service: 04/09/23 MR#: [id number] Acct: [id number] Name: DAXA LEE Rep #: [id number] : 1955 Provider: Dr. Daxa Mejia DO Age/Sex: 68/M [place] [facility] [place] Status: Signed Intake Vital Signs 03/22/2315:37 Height 5 ft 7 in Intake Visit Reasons: RIGHT HIP Chief Complaint: right hip Is patient in pain?: Yes Allergies Penicillins [PCN] Allergy (Verified 04/09/23 09:46) Unknown Medications acetaminophen 500 mg tablet 500 mg PO PRN PRN Pain 02/21/17 [History Confirmed 04/09/23] melatonin 5 mg capsule 5 mg PO QHS PRN PRN Insomnia 01/20/19 [History Confirmed 04/09/23] tamsulosin 0.4 mg capsule 0.4 mg PO DINNER 12/20/20 [History Confirmed 04/09/23] celecoxib 200 mg capsule (Celebrex) 200 mg PO DAILY #30 caps 06/06/22 [Rx Confirmed 04/09/23] amlodipine 2.5 mg tablet 2.5 mg PO DAILY #90 tabs 09/04/22 [Rx Confirmed 04/09/23] eltrombopag 12.5 mg tablet (Promacta) 12.5 mg PO DAILY 09/19/22 [History Confirmed 04/09/23] glucosamine sulfate 500 mg tablet (Glucosamine) 500 mg PO DINNER 09/19/22 [History Confirmed 04/09/23] pravastatin 20 mg tablet 20 mg PO DINNER 09/25/22 [History Confirmed 04/09/23] lisinopril 40 mg tablet 20 mg PO DAILY 04/09/23 [History] [facility] Medical History Anemia Arthritis Cancer CLL (chronic lymphocytic leukemia) Essential hypertension GERD (gastroesophageal reflux disease) HTN (hypertension) Irregular heart beat Kidney stones LV dysfunction NSVT (nonsustained ventricular tachycardia) Osteoarthritis of right hip Osteoporosis Premature atrial contraction Sinus bradycardia Sleep apnea Smoker 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, immune Surgical History History of appendectomy History of tonsillectomy Family History Sister CAD (coronary artery disease) CHF (congestive heart failure) Presence of stent in coronary arteryBrother Thoracic aortic aneurysm Cancer ProstateBrother Diabetes Cancer Bladder Social History Smoking Status: Current some day smoker tobacco type: pipe alcohol intake: current details: minimal substance use type: does not use caffeine: Yes eating out: other details: 2 cups daily HPI RIGHT HIP Details: Parts of this documentation were recorded by a scribe, this documentation accurately reflects the service provided and the decisions made by me, Dr. Daxa Mejia, DO 04/09/23 0804. DAXA LEE is a 68 year old M here today for continued right hip pain. Patient states that he continues to have right hip pain. Patient complains of pain over his entire hip. He has pain into his posterior hip when walking, getting out of bed . He has pain into his groin with getting out of his car. Patient states that he had labwork done 2 weeks ago and has an appointment with his PCP tomorrow to review the labwork and get clearance. Patient takes celebrex for pain and tylenol for pain at night. He would like to proceed with surgery. Ortho Exam General General: Yes no acute distress Neurologic: Yes alert and Yes oriented x3 Psychologic: Yes reasonable and appropriate Right Hip Skin: Yes CDI, No Ecchymosis, No soft tissue swelling and No Erythema HIP: bilateral leg edema. Decreased hip range of motion with pain Head: Normocephalic Atraumatic Chest: symmetrical rise, non-labored breathing, no audible wheeze Abdomen: no guarding, non-rigid Supplemental Info 05/08/2022 x-ray right hip moderate approaching severe joint space narrowing moderate spurring there is subchondral cystic changes in the acetabulum and femoral head Coding Level of Care Code Off vis,est,level 3 Diagnoses Primary osteoarthritis of right hip M16.11 Osteoarthritis type: primary Assessment and Plan Assessment and Plan (1) Osteoarthritis of right hip: Status: Acute Qualifiers: Osteoarthritis type: primary Qualified Code(s): M16.11 - Unilateral primary osteoarthritis, right hip Plan Patient's albumin and platelet counts have improved his APTT was mildly prolonged, and his potassium was high. He has not had medical clearance yet but his appoint with his PCP is tomorrow for this. Spoke with him about the increased risk of bleeding and bruising due to his PTT level lower platelet levels. Spoke with the patient about a total hip arthroplasty procedure and recovery. Explained the risks of infection, blood clot, leg length discrepancy, fracture and dislocation, and a foot drop. Explained he will be on a blood thinner post op and his platelets need to be checked postoperatively, that is why I am requesting an admission for this procedure in addition he has had fluctuations of high and low blood pressures which need to be monitored postoperatively. he will also need to stop the celebrex 7 days prior to surgery. He will have hip precautions strictly for 6 weeks and mindful for 12 weeks. Patients surgery will be inpatient due to medical history. He will begin outpatient physical therapy a few days post op. Patient will need to wear compression stockings post op until swelling decreases. Risks, benefits and alternatives of surgery reviewed including but not limited to bleeding, infection, nerve, artery and/or tissue damage, fracture, VTE, mechanical feel of the knee, continued pain, stiffness and expected post-operative course. He will need to get CT MAKOplasty templating. Follow up for 2 week post op or sooner if pain, swelling, numbness or associated symptoms, or concerns develop. All questions answered. Patient in agreement of plan. Tentative surgery date May 01, 2023 04/09/23 1137 <Electronically signed by Daxa Mejia DO> Date Daxa Mejia DO Cosigner Signature: Date (if applicable) CC: ~ I have examined the patient and the H&P has been reviewed. There are no clinical changes since date of exam.
--- NOTE | 2023-05-01 13:25 | FEM_PTH ---
PATIENT: HUDSON LEE LOC: MS3 U#:[id number] AGE/SX: 68/M ROOM: [facility] [place] RE05/01/[address]: Dr. Hudson Mejia DO : 1955 BED: 1 DIS: 05/02/2023 SPEC #: [id number] RECD: 05/01/23 16:31 STATUS: ANITA REAmina #: [id number] ALFONSO: 05/01/23 13:[address]: Hudson Mejia DEPT: SURGICAL PATHOLOGY RECD BY: Anastasia Vazquez ENTERED: 05/02/23 09:41 SP TYPE: FEM HEAD OTHR DR: DO Dr. Ivan Pretty MD Dr. Joseph Borruso, DO Dr. Nicholas F Kotsonis, MD Tissues: Femoral region, NOS Procedures: Decalcification bone/plaque Surgery Specimen Level IV Comments: @ Ordering doctor for DEC edited from to DR.JBORRU Godoy by HERNÁN at 05/02/23 1445 @ Ordering doctor for SUV edited from to DR.JBORRU Godoy by HERNÁN at 05/02/23 1445 @ Submitting doctor edited from to DR.JBORRU Godoy by HERNÁN at 05/02/23 1445 HEADER OPERATION: ERAS, right total hip arthroplasty robotic assisted PRE-OP DIAGNOSIS: Osteoarthritis of right hip TISSUE SUBMITTED: Right femoral head MICROSCOPIC DIAGNOSIS Right femoral head, total hip replacement/resection: Femoral head with degenerative osteoarthritic changes. Consistent with involvement by non-Hodgkin low-grade B-cell lymphoma (SLL/CLL). See comment. SJ:shamar 05/08/2023 COMMENT Immunohistochemistry ([id number]) supports the above diagnosis. Case has been reviewed in consultation with Dr. Reid who concurs with the above diagnosis. IDC:AM MICROSCOPIC DESCRIPTION Slides are reviewed. GROSS DESCRIPTION Received is one container labeled with the patient's name and designated right femoral head. The specimen consists of a jensen femoral head measuring 5.5 x 5.0 x 5.0. The articular surface displays prominent osteophyte formation, eburnation and bone erosion. Also present in the specimen container are multiple irregular fragments of bone reamings and bone fragments measuring in aggregate 9.0 x 8.0 x 1.0 cm. Soft tissue measures 5.0 x 2.5 x 1.0 cm. Bucket Chucker sections are submitted in two cassettes as follows: 1 - soft tissue and reamings, 2 - bone after decalcification. / AM:shamar 05/02/2023 TC:0 CPT: 93415, 46948
[2023-05-01] MEDS: Cefazolin 2 GM in 0.9% Normal Saline 100 ML IV ×3 (13:55→23:58)
[2023-05-01] MEDS: dexAMETHasone 10 MG/ML Vial IV (14:25)
--- NOTE | 2023-05-01 16:21 | PCM.OP.BLANK ---
Operative Report Date of Procedure: 05/01/23 Preoperative diagnosis: Right hip DJD Postoperative diagnosis: Same Procedure: CT-guided Makoplasty assisted right total hip arthroplasty Implants: Norm Accolade II stem size 5, 127 degree neck angle -5 neck length 52 mm Trident II acetabular shell with 40 mm cancellous screw 36 mm ceramic head, 10 degree Trident X3 polyethylene insert. Anesthesia: General EBL: 400 cc Complications: None Condition: Stable to PACU Funeral Home Attendant Brennon Mac. My physician assistant inventory manager was a vital part of this case. He was important in appropriate retraction during the case, and protection of soft tissues during procedure. His intimate knowledge of the case and my steps aided in safe and expedient completion of the procedure as well as appropriate position of the extremity during the case. He was also vital in assisting with closure under my direct supervision. Indication for procedure: This is a 68-year-old male who has had long-standing arthrosis of the hip who has failed conservative treatment and wished to undergo total hip arthroplasty. We did discuss operative versus nonoperative intervention including risks of bleeding, infection , nerve artery tissue damage, need for further surgery, fracture, leg length discrepancy dislocation blood clot and need for postoperative physical therapy and postoperative expectations. An informed consent was signed. Patient's platelet counts were checked morning of surgery 91,000 he was transfused platelets intraoperatively. Procedure: Patient was met in the preoperative holding area once again the operative extremity was identified by both patient and physician and was marked. Patient was met by anesthesia . Anesthesia was started. patient was then positioned in the lateral decubitus position on a well-padded pegboard with an axillary roll. All bony prominences were checked and padded. The patient was prepped and draped in the usual sterile fashion. A timeout was called to ensure the proper patient procedure and extremity were being contemplated. Anatomic landmarks were palpated and marked for a standard posterior lateral approach. Prior to this the ASIS was palpated and 3 fingerbreadths proximal to this 3 pins were placed at a 45 degree angle into the iliac crest with good purchase, stab incisions were made with a 15 blade into the skin prior to placement. The Makoplasty array was then secured. A 10 blade scalpel was used to make a posterior incision through the skin and subcutaneous tissue. retractors were used and electrocautery was used to maintain meticulous hemostasis and dissect full-thickness flaps until the gluteal fascia was reached. The gluteal fascia was incised in line with the gluteal fibers. The bursal tissue was then freed from the underside and a Charnley retractor was placed. The femoral trochanteric checkpoint was placed and leg length was assessed using the trochanteric checkpoint and an EKG lead that was placed on the knee prior to prepping the leg .the fat pad was then elevated off of the external rotators with electrocautery and the external rotators were dissected off of the greater trochanter including the piriformis and were tagged with #1 Ethibond for later repair. The joint capsule opened with posterior trapdoor technique. The hip was surgically dislocated. The measurement on the preoperative CT from the top of the lesser trochanter to the femoral neck cut was marked Hohmann was placed around the lesser trochanter. A neck cutting guide was used to shaunna the neck with a Bovie and an oscillating saw was used complete the femoral neck cut. The femoral head was then removed and sized. We then turned our attention to the acetabulum. A Bovie was used to make a perforation in the anterior joint capsule and a Ohara retractor was placed this was repeated in the 6 o'clock position and a wide yousif was placed there. With a long handled knife the labral and pulvinar tissue were removed. We then registered the acetabulum with the pointing array and confirmed our landmarks. Once the socket was thoroughly prepared and labral tissue and pulvinar was removed we single reamed with the robotic arm. We then used the robotic arm to position the acetabular implant and impacted it into place under robotic guidance. We then proceeded to place a posterior superior screw by drilling first measuring and inserting the screw. We then inserted a trial liner. And turned our attention back to the femur at this point a femoral elevator was used. As well as a pointed wide Hohmann around the lesser trochanter and a Hohmann to help retract the gluteus medius. A box chisel was used to remove excess lateral neck followed by a canal finder and a lateralizing reamer. This was followed by sequential broaches. Attention was made of the version within the canal based on preoperative templating. Once the final broach was seated we then trialed reduced the hip it was determined that a 127 degree neck angle with a -5 neck length was the appropriate size. We then checked stability with shuck testing as well as flexion and internal rotation. then proceeded with hip extension and checked leg lengths at the knees and heels as well as with the trochanteric checkpoint and knee EKG lead. At this point trials were removed. A liner was inserted to the cup. The femoral stem was inserted. We re-trialed and then proceeded to impact the femoral head onto the Syed taper. We then surgically reduce the hip check stability again and leg lengths and were satisfied. Betadine rinse was allowed to sit for 5 minutes while everyone changed their gloves. Thorough irrigation was performed. Followed by closure of the external rotators with #2 FiberWire followed by closure of gluteal fascia with #1 Ethibond. 0 Vicryl fat stitches and 2-0 Vicryl subcutaneous stitches and criss in the skin. [place] were placed in the skin pin sites over the iliac crest and dressed with a Mepilex dressing. The main incision was dressed with a Mepilex ag dressing and an abduction pillow was placed. Patient tolerated the procedure well there was no intraoperative complications all counts were correct and the patient was brought back to the PACU in stable condition
[2023-05-01] MEDS: Lactated Ringers 1,000 ML 125 ML IV (16:30)
--- NOTE | 2023-05-01 16:30 | RAD_ITS ---
INDICATION: Post Op -- AP both hips on single asif/lateral of op hip PACU EXAMINATION/TECHNIQUE: X-RAY - XR Hip Unilateral with Pelvis when performed; 2Views COMPARISON: FINDINGS: PELVIC BONES: No displaced fracture, destructive or sclerotic lesions. No widening of the pubic symphysis. HIPS: There is a right hip prosthesis in place with adjacent postsurgical changes in the soft tissue. RAD/Hip Min 2 Views (Portable) IMPRESSION: Right total hip replacement with postsurgical changes. Electronically Signed: Paramjit Blanton DO at 17:17 EDT ,
--- NOTE | 2023-05-01 21:41 | PN.HOSP_ITS ---
Subjective Subjective 68-year-old male presents to the hospital for elective right total hip arthroplasty for DJD. He is evaluated upon arrival to the floor so he is little bit drowsy still from anesthesia. Pain appears to be controlled Objective Data Objective Data Vital Signs: Vital Signs Temp Pulse Resp BP Pulse Ox O2 Del Method O2 Flow Rate 98.6 F 60 16 112/62 98 Room Air 4 05/01/23 20:41 05/01/23 20:41 05/01/23 20:41 05/01/23 20:41 05/01/23 20:41 05/01/23 20:41 05/01/23 17:45 Oxygen Flow Rate (L/min) 4 Oxygen Delivery Method Room Air Weight: 209 lb 7.026 oz Body Mass Index (BMI) 31.8 Intake & Output: Intake and Output for Last 24 Hours 04/30/23 05/01/23 05/02/23 03:59 03:59 03:59 Intake Total 1569.25 / 1569.25 Output Total 100 / 100 Balance 1469.25 / 1469.25 Lab / Micro Data 05/01/23 11:53 04/19/23 10:14 Labs: Laboratory Results - last 24 hr 05/01/23 11:36: POC Glucose 90 05/01/23 11:53: Plt Count 91 L Micro: Microbiology 04/19/23 10:15 Swab (Method) Nasal Screen MRSA/MSSA - Final Radiography Diagnostic Testing: Radiology Impression Hip X-Ray 05/01/23 16:30 IMPRESSION: Right total hip replacement with postsurgical changes. Electronically Signed: Paramjit Blanton DO at 17:17 EDT Reading Location ID and State: [facility] / [place] Tel [phone], Service support , Physical Exam Narrative General: Drowsy, oriented x3, cooperative, No apparent distress HEENT: Atraumatic, PERRLA, EOMI, Normocephalic Oral: Moist Mucosa Neck: Supple, No JVD Lungs: Clear to auscultation, Normal air movement, No rhonchi, No wheeze, No rales Cardiovascular: Regular rate, Regular Rhythm, Normal S1, Normal S2, No murmurs Abdomen: Soft, Non Tender, Non-Distended, No Hepato-splenomegaly Extremities: No edema, Capillary Refill Less than 3 Seconds Skin: Dressing is CDI Musculoskeletal: No Tenderness to Palpation of Joints or Extremities Neurological: Cranial nerves II-XII grossly intact, Motor Exam 5/5 strength throughout, Sensory exam intact to light touch and pain Psych/Mental Status: Normal Affect, Appropriate Assessment & Plan Assessment/Plan (1) Osteoarthritis of right hip: QUALIFIERS: Osteoarthritis type: primary Qualified Code(s): M16.11 - Unilateral primary osteoarthritis, right hip PLAN: Plan 1. Osteoarthritis of right hip status post right total hip arthroplasty 05/01/2023 ? PT/OT ? Pain management per primary ? Continue with Eliquis at 2.5 mg p.o. twice daily per primary, CBC in the morning 2. Hypertension ? Blood pressures are currently stable ? Continue with lisinopril ? We will monitor renal function 3. CLL ? Stable, on Promacta ? Follow-up with oncology as an outpatient 4. BPH ? Stable ? Continue with Flomax DVT: Eliquis Charges/Coding Visit Charges Inpatient E&M: 18851 Subs Hosp L2
[2023-05-01] MEDS: Pravastatin 20 MG Tablet PO (23:59)
[2023-05-02] MEDS: Tamsulosin HCl 0.4 MG Capsule 0.8 MG PO
[2023-05-02] MEDS: Lactated Ringers 1,000 ML 125 ML IV ×2 (01:14→09:42)
[2023-05-02 02:41] VITALS: BMI 31.8
[2023-05-02 04:58] VITALS: BP 100/58; PULSE 62; RESP 14; TEMP 37.2; O2SAT 95
[2023-05-02] MEDS: Acetaminophen 500 MG Tablet 1000 MG PO ×2 (05:08→15:20)
[2023-05-02 06:16] LABS: Hematocrit 29.2 % (40-54); Hemoglobin 9.8 g/dL (13.0-16.5); Mean Corp Hgb Conc 33.6 g/dL (32-36); Mean Corpuscular Hgb 34.3 pg (27.0-32.0); Mean Corpuscular Volume 102.1 fL (80-94); Mean Platelet Vol. 9.3 fl (6.2-12.0); Platelet Count 108 K/mm3 (150-450); RBC Distribution Width CV 15.7 % (11.6-14.6); RBC Distribution Width SD 58.9 fl (35.1-43.9); Red Blood Count 2.86 M/mm3 (4.6-6.2); White Blood Count 6.4 K/mm3 (4.4-11.0)
[2023-05-02 06:39] LABS: Anion Gap 3 (5-15); BUN 11 mg/dL (7-18); BUN/Creat Ratio 11.9 RATIO (10-20); Calcium,Total 8.2 mg/dL (8.5-10.1); Chloride 112 mmol/L (98-107); Creatinine, Serum 0.92 mg/dL (0.70-1.30); EST Glomerular Filtration Rate 86 mL/min (>60); Est Glom Filt Rate - Afr Amer 104 mL/min (>60); Estimated Creatinine Clearance 72.28 ml/min; Glucose 140 mg/dL (74-106); Potassium 4.5 mmol/L (3.5-5.1); Sodium Level 140 mmol/L (136-145)
[2023-05-02 06:41] VITALS: BMI 31.8
[2023-05-02 07:01] VITALS: BP 100/51; PULSE 68; RESP 18; TEMP 37.2; O2SAT 98
[2023-05-02] MEDS: Cefazolin 2 GM in 0.9% Normal Saline 100 ML IV (09:41)
[2023-05-02] MEDS: Senna/Docusate Sodium 1 Tablet 2 TABLET PO ×2 (09:42)
[2023-05-02] MEDS: Lisinopril 20 MG Tablet PO (09:45)
[2023-05-02 10:10] VITALS: BP 117/95; PULSE 55; RESP 16; TEMP 37.2; O2SAT 100
[2023-05-02 10:39] VITALS: BMI 31.8
--- NOTE | 2023-05-02 11:35 | CASEMGMT ---
RN?CM?MEDICARE SPECIALIST?CM?to room to meet with patient for initial transition planning/care coordination?assessment.?RN?CM?introduced self and role at [facility].? Pt voices understanding and consents to?assessment?at this time.? Pt resting in bed in no distress at this time.? @ bedside. Pt is A/O at this time and answers all questions appropriately.?? Care providers, pharmacy, and demographics verified/updated at this time. PCP: Dr Kamara Specialists: Dr Mejia-ortho, Dr Hackett-oncology, G/cardiology Preferred Pharmacy: [facility] Insurance: [facility], MMO Prescription Benefit:?Yes, [employer] Living Will/HPOA:?Has both LW and HCPOA, who is his , Samaria CASTILLOOK: , Samaria. Son, Aravind Living Arrangements: Lives w/his in 2-story home w/basement and one step to enter. FFSU. Pt is independent w/ADL's. can assist as needed. Transportation:?Pt states drives self and states no transportation concerns at this time.? also drives. DME: States has the following DME:?BSC, built-in shower seat, cane, grab bars, walker ?Pt and state no need for further DME at this time.? HHC/SNF: No hx of either. Pt is scheduled for OP PT @ [facility] 05/04. will take pt to appts until pt able to drive. Pt wishes to return home and states has no concerns with going home at time of discharge.? CM?to follow for any discharge planning/needs.? Pt and voice no concerns/needs at this time.? Advised them to ask for?CM?if any questions/concerns/needs arise.? They voice understanding. PLAN:??Home w/OP therapy. Yann BSN?RN?CM
[2023-05-02] MEDS: oxyCODONE 5 MG Tablet PO (11:50)
--- NOTE | 2023-05-02 13:06 | PN.HOSP_ITS ---
Reason for Visit Reason for Visit: Diagnoses Essential (primary) hypertension (05/01/23) Unilateral primary osteoarthritis, right hip (05/01/23) Encounter for other preprocedural examination (05/01/23) Subjective Subjective Had pain in right hip. Objective Data Objective Data Vital Signs: Vital Signs Temp Pulse Resp BP Pulse Ox O2 Del Method O2 Flow Rate 37.2 C 55 L 16 117/95 H 100 Room Air 1 05/02/23 10:10 05/02/23 10:10 05/02/23 10:10 05/02/23 10:10 05/02/23 10:10 05/02/23 10:11 05/02/23 09:21 Oxygen Flow Rate (L/min) 1 Oxygen Delivery Method Room Air Weight: 95 kg Body Mass Index (BMI) 31.8 Intake & Output: Intake and Output for Last 24 Hours 04/30/23 05/01/23 05/02/23 23:59 23:59 23:59 Intake Total 1569.25 / 1569.25 2220 / 2220 Output Total 350 / 350 Balance 1219.25 / 1219.25 2220 / 2220 Lab / Micro Data 05/02/23 05:39 05/02/23 05:39 Labs: Laboratory Results - last 24 hr 05/02/23 05:39: WBC 6.4, RBC 2.86 L, Hgb 9.8 L, Hct 29.2 L, MCV 102.1 H, MCH 34.3 H, MCHC 33.6, RDW Std Deviation 58.9 H, RDW Coeff of Lamberto 15.7 H, Plt Count 108 L, MPV 9.3, Sodium 140, Potassium 4.5, Chloride 112 H, Carbon Dioxide 25.0, Anion Gap 3 L, BUN 11, Creatinine 0.92, Estim Creat Clear Calc 72.28, Est GFR (MDRD) Af Amer 104, Est GFR (MDRD) Non-Af 86, BUN/Creatinine Ratio 11.9, Glucose 140 H, Calcium 8.2 L Micro: Microbiology 04/19/23 10:15 Swab (Method) Nasal Screen MRSA/MSSA - Final Radiography Diagnostic Testing: Radiology Impression Hip X-Ray 05/01/23 16:30 IMPRESSION: Right total hip replacement with postsurgical changes. Electronically Signed: Paramjit Blanton DO at 17:17 EDT Reading Location ID and State: [facility] / [place] Tel [phone], Service support , Physical Exam Const alert Resp normal respiratory effort, no retractions, no use of accessory muscles and clear to auscultation bilaterally Cardio regular rate, regular rhythm, S1 normal heart sound and S2 normal heart sound GI normal to inspection, nondistended, normoactive bowel sounds, soft to palpation, non-tender and non-distended Extremity normal to inspection Assessment & Plan Assessment/Plan (1) Osteoarthritis of right hip: QUALIFIERS: Osteoarthritis type: primary Qualified Code(s): M16.11 - Unilateral primary osteoarthritis, right hip PLAN: Osteoarthritis of right hip status post right total hip arthroplasty 05/01/2023 ? PT/OT ? Pain management per primary ? Continue with Eliquis at 2.5 mg p.o. twice daily per primary, CBC in the morning PLAN: Plan Chronic conditions: * Hypertension? Blood pressures are currently stable? Continue with lisinopril? We will monitor renal function * CLL? Stable, on Promacta? Follow-up with oncology as an outpatient * BPH? Stable? Continue with Flomax DVT: Eliquis Pt medically stable for discharge. Will follow peripherally. Charges/Coding Visit Charges Inpatient E&M: 20549 Subs Hosp L2
--- NOTE | 2023-05-02 13:10 | PCM.PN.ORT ---
Subjective Subjective Patient seen and examined. He is doing well he is able to urinate. His pain is controlled he is only taking Tylenol denies any chest pain shortness of breath fevers chills nausea vomiting. He did require 2 assist for physical therapy this morning he is requesting to be discharged home. Objective Data Objective Data Vital Signs: Vital Signs Temp Pulse Resp BP Pulse Ox O2 Del Method O2 Flow Rate 99.0 F 55 L 16 117/95 H 100 Room Air 1 05/02/23 10:10 05/02/23 10:10 05/02/23 10:10 05/02/23 10:10 05/02/23 10:10 05/02/23 10:11 05/02/23 09:21 Oxygen Flow Rate (L/min) 1 Oxygen Delivery Method Room Air Weight: 209 lb 7.026 oz Body Mass Index (BMI) 31.8 Intake & Output: Intake and Output for Last 24 Hours 04/30/23 05/01/23 05/02/23 23:59 23:59 23:59 Intake Total 1569.25 / 1569.25 2220 / 2220 Output Total 350 / 350 Balance 1219.25 / 1219.25 2220 / 2220 Lab / Micro Data 05/02/23 05:39 05/02/23 05:39 Labs: Laboratory Results - last 24 hr 05/02/23 05:39: WBC 6.4, RBC 2.86 L, Hgb 9.8 L, Hct 29.2 L, MCV 102.1 H, MCH 34.3 H, MCHC 33.6, RDW Std Deviation 58.9 H, RDW Coeff of Lamberto 15.7 H, Plt Count 108 L, MPV 9.3, Sodium 140, Potassium 4.5, Chloride 112 H, Carbon Dioxide 25.0, Anion Gap 3 L, BUN 11, Creatinine 0.92, Estim Creat Clear Calc 72.28, Est GFR (MDRD) Af Amer 104, Est GFR (MDRD) Non-Af 86, BUN/Creatinine Ratio 11.9, Glucose 140 H, Calcium 8.2 L Micro: Microbiology 04/19/23 10:15 Swab (Method) Nasal Screen MRSA/MSSA - Final Radiography Diagnostic Testing: Radiology Impression Hip X-Ray 05/01/23 16:30 IMPRESSION: Right total hip replacement with postsurgical changes. 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 I would like to check a CBC next week to make sure his platelet counts are okay while on the blood thinner. I would like to check a CBC on him Sunday, May 07, 2023 He will follow-up in 2 weeks after discharge, he is scheduled for outpatient physical therapy this Sunday.
--- NOTE | 2023-05-02 13:13 | DCINST_ITS ---
Discharge Instructions Activity Weight Bearing Status: Weight bearing as tolerated Dressing / Incision Call your doctor if you observe: Shortness of breath and Chest pain Additional Dressing/Incision Instructions:: Do not shower 72hrs. Begin daily showering warm water antibacterial soap postop day #3( 72hrs Post-operatively) and then daily. Leave the dressing on for 72 hours postoperatively then may remove prior to first shower and change dressing daily after this until no drainage for 2 consecutive days then may leave open to air. Follow hip precautions that were reviewed in hospital. Wear compression stockings, may remove at night. Start physical therapy as directed in hospital. Follow prescriptions instructions do not take any other pain medication or differ dosing without consulting your physician. Do not take oral NSAIDs until blood thinner has been completed , then may begin the day after completion if needed . I would like to check lab work CBC Sunday, May 07, please call Dr. Mejia's office and speak with Hannah or Gloria to have this arranged . call Dr. Mejia's office with any concerns. Follow Up Care Please Follow Up With: Hudson Mejia DO When: 2 weeks Test Results: Test results from this visit will be discussed in further detail at your follow- up appointment, if applicable. Discharge Plan Admission Admit Date/Time: 05/01/23 11:05 Primary Reason for Your Visit: Right total hip arthroplasty Attending Provider: Hudson Mejia Primary Care Provider: Ivan Kamara Consulting Providers: Chava Syed; Hudson Mejia; Ivan Coelho Discharge Orders/Prescriptions Prescriptions: New acetaminophen [acetaminophen] 500 mg tablet 1,000 mg PO Q6H PRN Qty: 100 0RF oxycodone 5 mg tablet 5 - 10 mg PO Q4H PRN (Reason: pain) 6 Days Qty: 50 0RF Eliquis 2.5 mg tablet 2.5 mg PO BID Qty: 42 0RF Continued melatonin 5 mg capsule 5 mg PO QHS PRN PRN (Reason: Insomnia) tamsulosin 0.4 mg capsule 0.4 mg PO DINNER glucosamine sulfate [Glucosamine] 500 mg tablet 500 mg PO DINNER Rx Instructions: administer with a meal Promacta 12.5 mg tablet 12.5 mg PO DAILY Rx Instructions: administer on an empty stomach, at least 1 hour before or 2 hours after food/meal(s) lisinopril 40 mg tablet 20 mg PO DAILY pravastatin 20 mg tablet 20 mg PO DINNER Patient Comments: TAKE 1 TABLET BY MOUTH at supper Held celecoxib [Celebrex] 200 mg capsule 200 mg PO DAILY Qty: 30 0RF Hold Instructions: Resume on 05/23/23. Rx Instructions: Do not take in conjunction with other NSAIDs including ibuprofen. Tylenol is okay. No Action acetaminophen 500 MG tablet 500 mg PO PRN PRN (Reason: Pain) Referrals / Follow Up: Ivan Kamara MD [Primary Care Provider] - Disposition Disposition (needs filled in before D/C Order can be placed): Home, Self Care
[2023-05-02 14:41] VITALS: BMI 31.8
[2023-05-02 15:00] VITALS: BP 114/96; PULSE 55; RESP 16; TEMP 37.2; O2SAT 100
[2023-05-02] MEDS: APIXABAN 2.5 MG TABLET (WCH) PO (15:20)
[2023-05-02] MEDS: 0.9 % NaCl (Sterile) Posiflush 10 mL IV (16:49)
== END 2023-05-02 17:25 | disposition home or self-care (01) | DRG 470 ==
LOC: ACINP 11:06 → MS3 17:07
PROVIDERS: Anesthesiology; Admitting Provider Orthopaedic Surgery; PCP Family Medicine; Referring Provider Orthopaedic Surgery; Visit Provider Orthopaedic Surgery
PROC: 8E0Y0CZ Robotic Assisted Procedure of Lower Extremity, Open Approach (ICD-10-PCS; CPT 27130; principal; 2023-05-01 12:55)
DX: M16.11 Unilateral primary osteoarthritis, right hip (principal); C91.10 Chronic lymphocytic leukemia of B-cell type not having achieved remission; D69.59 Other secondary thrombocytopenia; I10 Essential (primary) hypertension; F17.290 Nicotine dependence, other tobacco product, uncomplicated; E78.00 Pure hypercholesterolemia, unspecified; N40.0 Benign prostatic hyperplasia without lower urinary tract symptoms; Z79.899 Other long term (current) drug therapy; Z86.73 Personal history of transient ischemic attack (TIA), and cerebral infarction without residual deficits
CPT/HCPCS: 36415; 73502; 80048; 80053; 82962; 82985; 83036; 85025; 85027; 85049; 86850; 86900; 86901; 86965; 87081; 88305; 88307; 88311; 88341; 88342; 94668; 97110; 97116; 97162; 97166; 97530; 97535; C1776; J7040; J7120; P9035; J2405; J3475

== ENCOUNTER 2023-05-31 10:00 | Outpatient (RCR) | payer MEDICARE, OTHER, SELFPAY ==
--- NOTE | 2023-05-04 16:01 | HP.PTEVAL ---
Patient's Visit Information Visit Information Visit Information: HUDSON LEE is a 68 year old M referred to Physical Therapy by Dr. Hudson Mejia DO with a diagnosis of R PABLO. Date of Evaluation: 05/04/23 Physical Therapist: Georgi Bai DPT Visit Plan Frequency: 2-3x /Week Duration: 6 Weeks Plan: Start with RLE strengthening, gait progression, flexibility with in parameters. Progress from FWW to single point cane when patient is safe. Subjective Subjective: Pt. is here today for his initial evaluation with diagnosis of R TKA. Posterior lateral approach. DOS 8... Pt. arrives with FWW. Pt. reports overall doing well. Pt. reports no N/T, no calf pain. He still has bandage in place. Pt. is sleeping well without issues. He lives at home with his , who has been able to help with all activities at home. Pt. is taking pain medication as prescribed. Pt. is hopeful to get back to all recreational and household activiites without limitations. Pain R hip: Pain Intensity (Out of 10): 2 Pain Intensity Range: 0 and 5 Objective Objective: POSTURE: Pt. has slight forward posture. Normal KRISTIN in stance with use of Ad. PALPATION: Pt. has no signs of infection. Bandage in place, pt. wants to hold off taking off due to seeing physician later today. NEURO: Pt. has normal sensation and normal DTR of BLEs. PT. is able to rise on heels and toes without issues. ROM: PROM: R Hip: flexion 80deg, abd 30deg, ext 0deg. IR/ER not tested. MMT: RLE: ankle 5/5 throughout; knee: ext 4+/5, flexion 4+/5; hip: flexion 3-/5, ext 3+/5. LLE 5/5 throughout. GAIT: Pt. ambulates with FWW with decent pattern. Pt. has slight antalgic pattern during R stance phase, but minimally. Pt. uses FWW, but not heavily. STAIRS: step to pattern noted with BHR. Balance/Special Test Scores WOMAC Total Score: 65 WOMAC Percentatge: 32.3000 Goals Goal 1:: LTG: Pt. to be I with HEP. Goal 2:: LTG: Pt. to ambulate without AD with normal gait pattern. Goal Time Frame: 4-6 Weeks Goal 3:: LTG: Pt. to have increased RLE strength to 5/5 throughout. Goal Time Frame: 4-6 Weeks Goal 4:: LTG: Pt. to negotiate steps with 1 HR with reciprocal pattern without increase in R hip pain. Goal Time Frame: 4-6 Weeks Goal 5:: LTG: Pt. to complete TUG without AD with time of less than 10 sec. Goal Time Frame: 4-6 Weeks Rehabilitation Potential Physical Therapy Diagnosis: Pt. has signs and symptoms consistent with R TKA. Posterior lateral approach. DOS 8.1.23. Pt. is overall doing well. Pt. has marked hypomobility, weakness, difficulty with walking and increased pain. Pt. would benefit from PT to address the above limitations progressing back to all recreational and household activities without limitations. Rehabilitation Potential: Excellent Anticipated Interventions Patient/Client Instruction: Educate patient on: Condition, Plan of Care, Risk Factors and Benefits of Fitness Program For the Purpose of:: To facilitate caregiver knowledge, To improve self management, To prevent re-injury, To improve ability to perform tasks related to life management and To improve tolerance to ADL's Therapeutic Exercise to Include: Strength training, Power training, Endurance training, Balance training, Body mechanics, Postural training, Flexibilty training, Gait and locomotor training, Passive ROM and Active ROM For the Purpose of:: To decrease pain, To increase ROM, To improve nutrient delivery to tissue, To increase oxygenation perfusion, To increase tolerance to activity/condition/position, To decrease level of supervision to perform tasks, To improve ability of physical actions for home/community/work/leisure, To improve gait and locomotor functions, To improve health of tissue, To decrease soft tissue restriction, To increase flexibility/ROM and To improve endurance Manual Therapy Techniques to Include: Passive ROM and Soft tissue mobilization For the Purpose of:: To decrease pain, To decrease swelling/inflammation, To increase ROM, To improve nutrient delivery to tissue, To increase oxygenation perfusion, To improve muscle performance and motor function, To improve gait and locomotor functions, To improve health of tissue, To decrease soft tissue restriction and To increase flexibility/ROM Text: Thank you for the opportunity to evaluate your patient. For Medicare and Medicare HMO plans, please review the plan of care and approve it. It will need to be FAXED BACK to us at [phone] for Medicare purposes. For Medicare only, by signing this I certify the plan of care. Please let me know if there are questions or concerns regarding this plan of care. Physician Signature: Date:
--- NOTE | 2023-05-31 11:16 | HP.PTREVAL ---
Re-Evaluation Intro: Dr. Hudson Mejia, DO, It has been my pleasure to treat HUDSON LEE over the last 9 visits for R PABLO. Please see the progress note below for an update on the physical therapy plan of care! Subjective Subjective: Pt. reports no issues currently. Pt. reports sleeping well, no pain. He is no longer using walking with all of his mobility, not driving yet. No issues with HEP. Objective Objective/Function: He reports still being caution with stairs and with walking around. TU.8sec ROM: Pt. has great AROM and PROM, slight tigthness in R HS, but overall doing well. Sleeping without issues. STAIRS: ascend/descend no HR with good and safe pattern. GAIT: Pt. has normal gait pattern without use of AD. MMT: Pt. is close to symmetrical with all strength testing this date, but a little weak with R hip flexion. Overall adriana is doing very well. he is to follow up with physician next week. I want him to continue to progress his walking, but overall I am pleased with his progress. Plan Plan Plan: pt. to follow up with physician next week. Pt. to let me know if physician would like him to continue with PT or is okay with him being done. Balance/Gait/Functional tests Balance/Special Test Scores Lower Extremity Functional Score: 59 TUG Test Time Seconds: 9.8 Tug Test: <10 sec.=free mobile 6 Minute Walk Test: 1332 feet no AD, normal for age group (1788- 2230) WOMAC Total Score: 65 WOMAC Percentage: 32.3000 Goals Goals Goal 1:: LTG: Pt. to be I with HEP. Goal Progress: Goal Met Goal 2:: LTG: Pt. to ambulate without AD with normal gait pattern. Goal Time Frame: 4-6 Weeks Goal Progress: Goal Met Goal 3:: LTG: Pt. to have increased RLE strength to 5/5 throughout. Goal Time Frame: 4-6 Weeks Goal Progress: Goal Met Goal 4:: LTG: Pt. to negotiate steps with 1 HR with reciprocal pattern without increase in R hip pain. Goal Time Frame: 4-6 Weeks Goal Progress: Goal Met Goal 5:: LTG: Pt. to complete TUG without AD with time of less than 10 sec. Goal Time Frame: 4-6 Weeks Goal Progress: Goal Met Anticipated Interventions Anticipated Interventions Patient/Client Instruction: Educate patient on: Condition, Plan of Care, Risk Factors and Benefits of Fitness Program For the Purpose of:: To facilitate caregiver knowledge, To improve self management, To prevent re-injury, To improve ability to perform tasks related to life management and To improve tolerance to ADL's Therapeutic Exercise to Include: Strength training, Power training, Endurance training, Balance training, Body mechanics, Postural training, Flexibilty training, Gait and locomotor training, Passive ROM and Active ROM For the Purpose of:: To decrease pain, To increase ROM, To improve nutrient delivery to tissue, To increase oxygenation perfusion, To increase tolerance to activity/condition/position, To decrease level of supervision to perform tasks, To improve ability of physical actions for home/community/work/leisure, To improve gait and locomotor functions, To improve health of tissue, To decrease soft tissue restriction, To increase flexibility/ROM and To improve endurance Manual Therapy Techniques to Include: Passive ROM and Soft tissue mobilization For the Purpose of:: To decrease pain, To decrease swelling/inflammation, To increase ROM, To improve nutrient delivery to tissue, To increase oxygenation perfusion, To improve muscle performance and motor function, To improve gait and locomotor functions, To improve health of tissue, To decrease soft tissue restriction and To increase flexibility/ROM Re-Evaluation Ending Re-evaluation ending: Please do not hesitate to contact me at [phone] by phone or if you have questions or concerns regarding this new plan of care! Sincerely, Georgi Bai DPT
== END 2023-05-31 19:00 | disposition home or self-care (01) ==
LOC: PT 10:00
PROVIDERS: PCP Family Medicine; Referring Provider Orthopaedic Surgery; Visit Provider Orthopaedic Surgery
DX: M16.11 Unilateral primary osteoarthritis, right hip (principal); Z96.641 Presence of right artificial hip joint
CPT/HCPCS: 97110; 97161; 97164

== ENCOUNTER → 2023-09-10 | Outpatient (CLI) | payer MEDICARE, OTHER, SELFPAY ==
--- NOTE | 2023-09-10 07:56 | ECHOD_ITS ---
Reason For Study: Cardiomyopathy Procedure This was a 2D Doppler, Color Flow transthoracic echocardiogram. Exam performed in department. Left Ventricle Normal LV size. The estimated ejection fraction is 53 %. There is borderline global hypokinesis of the left ventricle. Right Ventricle Normal RV size. Normal systolic function. Atria The left atrium is mildly enlarged. Normal right atrium. Mitral Valve Bileaflet diffuse mitral valve thickening. Mild (1+) mitral valve insufficiency. Tricuspid Valve Normal tricuspid valve. Mild (1+) tricuspid valve insufficiency. Pulmonary artery systolic pressure is 30 mmHg. Aortic Valve Trisinus/trileaflet aortic valve. Mild (1+) aortic valve insufficiency. Pulmonic Valve Normal pulmonic valve. Great Vessels Normal aortic root. The pulmonary artery is normal size. Normal inferior vena cava. Pericardium/Pleural No pericardial effusion. MMode/2D Measurements & Calculations LVIDd: 6.2 cm IVSd: 1.1 cm Ao root diam: 3.6 cm LVIDs: 4.3 cm LVPWd: 0.99 cm LA dimension: 4.5 cm RVDd: 4.2 cm FS: 30.6 % LAV(MOD-bp): 74.6 ml LVAd ap4: 38.6 cm2 SV(MOD-sp4): 73.3 ml LAV(MOD-bp) Indexed: 36.6 ml/m2 LVLd ap4: 8.3 cm LAV(MOD-sp2): 89.8 ml EDV(MOD-sp4): 146.7 ml LAV(MOD-sp4): 62.5 ml EDV(sp4-el): 153.2 ml LVAs ap4: 25.0 cm2 LVLs ap4: 7.4 cm ESV(MOD-sp4): 73.3 ml ESV(sp4-el): 71.5 ml EF(MOD-sp4): 50.0 % EF(sp4-el): 53.3 % SV(sp4-el): 81.7 ml LA A4 area: 21.9 cm2 RA A4 area: 22.5 cm2 TAPSE: 2.1 cm Time Measurements MV dec time: 0.28 sec Doppler Measurements & Calculations MV E max dank: 65.8 cm/sec Lat Peak E' Dank: 6.0 cm/sec Med Peak E' Dank: 4.7 cm/sec MV A max dank: 58.0 cm/sec E/E' lat: 11.1 E/E' med: 14.1 MV E/A: 1.1 MV V2 max: 79.9 cm/sec MV P1/2t max dank: 63.4 cm/sec Ao V2 max: 179.8 cm/sec MV max P.6 mmHg MV P1/2t: 92.2 msec Ao max P.9 mmHg MV V2 mean: 37.7 cm/sec MV dec slope: 201.3 cm/sec2 Ao V2 mean: 128.1 cm/sec MV mean P.68 mmHg Ao mean P.3 mmHg MV V2 VTI: 43.7 cm MVA(P1/2t): 2.4 cm2 Ao V2 VTI: 42.2 cm AV (velocity ratio): 0.79 AI max dank: 394.2 cm/sec LV V1 max: 128.0 cm/sec PA V2 max: 130.8 cm/sec AI max P.2 mmHg LV V1 max P.6 mmHg PA V2 mean: 90.2 cm/sec AI dec slope: 85.2 cm/sec2 LV V1 mean P.9 mmHg AI P1/2t: 1356 msec LV V1 mean: 92.1 cm/sec LV V1 VTI: 33.5 cm TR max dank: 263.2 cm/sec TR max P.7 mmHg ECHO/Echo Complete Interpretation Summary Normal LV size. The estimated ejection fraction is 53 %. There is borderline global hypokinesis of the left ventricle. Mild (1+) aortic valve insufficiency. The left atrium is mildly enlarged. Mild (1+) tricuspid valve insufficiency. Mild (1+) mitral valve insufficiency. Ordering Physician: Ember Oleary Referring Physician: Ivan Kamara MD Performed By: Hayden Quiñones RCS
== END | disposition home or self-care (01) ==
LOC: CVS 07:56
PROVIDERS: PCP Family Medicine; Referring Provider Nurse Practitioner Gerontology; Visit Provider Nurse Practitioner Gerontology
DX: I51.9 Heart disease, unspecified (principal)
CPT/HCPCS: 93306

== ENCOUNTER → 2024-08-05 | Outpatient (CLI) | payer MEDICARE, OTHER, SELFPAY ==
[2024-08-05 12:24] LABS: ALB/GLOB Ratio 1.2 RATIO (0.9-2.4); AST(SGOT) 8 U/L (15-37); Alanine Aminotransfer ALT/SGPT 16 U/L (16-61); Albumin, Serum 3.5 g/dL (3.2-5.0); Alkaline Phosphatase 79 U/L (45-117); Anion Gap 8 (5-15); BUN 14 mg/dL (7-18); BUN/Creat Ratio 15.2 RATIO (10-20); Calcium,Total 9.1 mg/dL (8.5-10.1); Chloride 110 mmol/L (98-107); Cholesterol 143 mg/dL (200); Creatinine, Serum 0.92 mg/dL (0.70-1.30); EST Glomerular Filtration Rate 86 mL/min (>60); Est Glom Filt Rate - Afr Amer 104 mL/min (>60); Globulin 2.8 g/dL (2.2-4.2); Glucose 93 mg/dL (74-106); High Density Lipoprotein 57 mg/dL; PSA,Total- Diagnostic 5.06 ng/mL (0.0-4.0); Potassium 4.2 mmol/L (3.5-5.1); Protein, Total 6.3 g/dL (6.4-8.2); Sodium Level 142 mmol/L (136-145); Triglycerides 91 mg/dL; Very Low Density Lipoprotein 18 mg/dL (5-40)
[2024-08-05 12:48] LABS: Microalbumin,Random Urine 27.4 mg/L (NO RANGE EST.); Microalbumin:Creatinine Ratio 9.3 mg/g CRE (<30 mg/g CRE)
== END | disposition home or self-care (01) ==
LOC: MTLAB 10:08
PROVIDERS: PCP Family Medicine; Referring Provider Family Medicine; Visit Provider Family Medicine
DX: E78.5 Hyperlipidemia, unspecified (principal); R97.20 Elevated prostate specific antigen [PSA]; I10 Essential (primary) hypertension
CPT/HCPCS: 36415; 80053; 80061; 82043; 82570; 84153

== ENCOUNTER → 2024-08-19 | Outpatient (CLI) | payer MEDICARE, OTHER, SELFPAY | END | disposition home or self-care (01) | LOC: PSN 08:23 | PROVIDERS: PCP Family Medicine; Referring Provider Nurse Practitioner Gerontology; Visit Provider Nurse Practitioner Gerontology | DX: R00.1 Bradycardia, unspecified (principal); I49.1 Atrial premature depolarization | CPT/HCPCS: 93225; 93226 ==

== ENCOUNTER → 2025-02-17 | Outpatient (CLI) | payer MEDICARE, OTHER, SELFPAY ==
[2025-02-17 12:35] LABS: Absolute Lymphocyte Count 2.51 X10^3/uL (0.83-4.51); Absolute Neutrophil Count 2.4 X10^3/uL (2.0-7.7); Basophil# 0.05 X10^3/uL; Basophil% 0.9 % (0-1); Eosinophil# 0.07 X10^3/uL; Eosinophils% 1.3 % (0-5); Hematocrit 44.5 % (40-54); Hemoglobin 15.4 g/dL (13.0-16.5); Lymphocyte # 2.51 X10^3/ul (0.83-4.51); Lymphocyte % 45.4 % (19-41); Mean Corp Hgb Conc 34.6 g/dL (32-36); Mean Corpuscular Hgb 33.2 pg (27.0-32.0); Mean Corpuscular Volume 95.9 fL (80-94); Mean Platelet Vol. 9.3 fl (6.2-12.0); Monocyte# 0.45 X10^3/uL; Monocyte% 8.1 % (0-10); NRBC Flagged by Analyzer 0 % (0-5); Neutrophil # 2.44 X10^3/uL (2.7-7.7); Neutrophil % 44.1 % (47-70); POSITIVE MORPHOLOGY YES; Platelet Count 167 K/mm3 (150-450); RBC Distribution Width CV 13.6 % (11.6-14.6); RBC Distribution Width SD 48.4 fl (35.1-43.9); Red Blood Count 4.64 M/mm3 (4.6-6.2); White Blood Count 5.5 K/mm3 (4.4-11.0)
[2025-02-17 12:44] LABS: ALB/GLOB Ratio 1.6 RATIO (0.9-2.4); AST(SGOT) 14 U/L (<=37); Alanine Aminotransfer ALT/SGPT 10 U/L (<=46); Albumin, Serum 4.1 g/dL (3.4-4.8); Alkaline Phosphatase 76 U/L (40-129); Anion Gap 9 (5-15); BUN 20 mg/dL (4-19); BUN/Creat Ratio 21.1 RATIO (10-20); Calcium,Total 9.4 mg/dL (7.6-11.0); Carbon Dioxide 23.4 mmol/L (21.0-32.0); Chloride 106 mmol/L (98-108); Creatinine, Serum 0.95 mg/dL (0.70-1.20); EST Glomerular Filtration Rate 86 (>60); Globulin 2.5 g/dL (2.2-4.2); Glucose 90 mg/dL (70-99); Potassium 4.6 mmol/L (3.3-5.1); Protein, Total 6.5 g/dL (5.9-8.4); Sodium Level 138 mmol/L (133-145); Total Bilirubin 0.55 mg/dL (0.00-1.30)
[2025-02-17 12:45] LABS: Microalbumin,Random Urine < 12.0 mg/L (NO RANGE EST.); Microalbumin:Creatinine Ratio UNABLE TO CALCULATE mg/g CRE
[2025-02-17 13:23] LABS: Differential Indicated SCAN CRITERIA MET
[2025-02-17 14:51] LABS: Pathologist Review May foll
[2025-02-18 13:08] LABS: PSA, Free % 28.4 % (.)
== END | disposition home or self-care (01) ==
PROVIDERS: PCP Family Medicine; Referring Provider Family Medicine; Visit Provider Family Medicine
DX: R97.20 Elevated prostate specific antigen [PSA] (principal); C91.10 Chronic lymphocytic leukemia of B-cell type not having achieved remission; I10 Essential (primary) hypertension
CPT/HCPCS: 36415; 80053; 82043; 82570; 84153; 84154; 85025

== ENCOUNTER → 2025-08-25 | Outpatient (CLI) | payer MEDICARE, OTHER, SELFPAY ==
--- NOTE | 2025-08-25 10:40 | RAD_ITS ---
PROCEDURE: KNEE 4 OR MORE VIEWS 08/25/2025 REASON FOR EXAM: L KNEE PAIN TECHNIQUE: Procedure Code: RADKN Modality: DX Procedure: KNEE 4 OR MORE VIEWS Laterality: Left COMPARISON: None FINDINGS: There is no evidence of fracture or dislocation. There is no significant arthritis of the patellofemoral joint. There is no significant arthritis of the medial joint space compartment of the knee. There is mild arthritis of the lateral joint space compartment of the knee. There is no knee joint effusion. There is calcific vascular disease in the distal thigh and proximal calf. RAD/Knee 4 or More Views IMPRESSION: Mild arthritis of the lateral joint space compartment of the knee. Other findi ngs as noted. Reading Location: [id number]
== END | disposition home or self-care (01) ==
LOC: MTRAD 10:38
PROVIDERS: PCP Family Medicine; Referring Provider Family Medicine; Visit Provider Family Medicine
DX: M25.562 Pain in left knee (principal)
CPT/HCPCS: 73564